=== PATIENT | male | born 1950 | race Caucasian/White ===

== ENCOUNTER 2019-07-17 06:04 | Inpatient (IN) | payer MEDICARE ==
[2019-07-17] MEDS ORDERED: DILTIAZEM DRIP BOLUS FROM BAG 1 MG SOLN IV ONE (06:13)
[2019-07-17] MEDS ORDERED: DILTIAZEM 125 MG in SODIUM CHLORIDE 0.9% 100 ML IV SCH (06:15)
[2019-07-17 06:31] LABS: Basophils % (A) 0 %; Eosinophils # (A) 0.2 k/uL (0-0.7); Eosinophils % (A) 2 %; HCT 37.7 % (39.0-53.0); HGB 12.5 gm/dL (13.0-17.5); Lymphocytes # (A) 1.1 k/uL (1.0-4.8); Lymphocytes % (A) 12 %; MCHC 33.2 g/dL (31.0-37.0); MCV 90.2 fL (80.0-100.0); Mean Platelet Volume 8.5; Monocytes # (A) 0.7 k/uL (0-1.0); Monocytes % (A) 8 %; Neutrophils # (A) 6.8 k/uL (1.3-7.7); Neutrophils % (A) 76 %; Platelet Count 276 k/uL (150-450); RBC 4.18 m/uL (4.30-5.90); RDW 13.4 % (11.5-15.5)
--- NOTE | 2019-07-17 06:32 | ED ---
Chest Pain HPI - General Source: patient, EMS, RN notes reviewed Mode of arrival: EMS Limitations: no limitations <Mian Lainez - Last Filed: 07/17/19 07:21> <Dain Stewart - Last Filed: 07/17/19 07:58> - General Chief Complaint: Chest Pain Stated Complaint: Chest Pain Time Seen by Provider: 07/17/19 06:07 - History of Present Illness Initial Comments: This is a 68-year-old male presents emergency Department with chief complaint of chest pain. Patient states it started late last night. Patient states that radha n has subsided some. He has no complaints of shortness of breath or palpitations. Patient does admit that he was recently admitted at [facility] for NSTEMI states that he has been echocardiogram. Patient's had prior CABG approximately 8 years ago. Patient recently switched from warfarin to Eliquis for his known A. fib. Patient denies any current abdominal pain including nausea, vomiting, diarrhea constipation. Patient has mild leg swelling which is normal for him. Patient denies being a smoker. Patient does have history of diabetes and hypertension. (Mian Lainez) - Related Data Allergies Allergy/AdvReac Type Severity Reaction Status Date / Time No Known Allergies Allergy Verified 07/17/19 06:13 Review of Systems ROS Other: All systems not noted in ROS Statement are negative. <Mian Lainez - Last Filed: 07/17/19 07:21> ROS Other: All systems not noted in ROS Statement are negative. <Dain Stewart - Last Filed: 07/17/19 07:58> ROS Statement: Those systems with pertinent positive or pertinent negative responses have been documented in the HPI. EKG Findings - EKG Comments: EKG Findings:: EKG performed at 6:08 A. fib with RVR, rate of 125 QRS 106 QT/QTC 332/479 - EKG Results: EKG: interpreted by ERMD <Mian Lainez - Last Filed: 07/17/19 07:21> Past Medical History Past Medical History: Atrial Fibrillation, Diabetes Mellitus, Hypertension, Myocardial Infarction ([place]) History of Any Multi-Drug Resistant Organisms: None Reported Past Surgical History: Coronary Bypass/CABG Past Psychological History: No Psychological Hx Reported Smoking Status: Never smoker Past Alcohol Use History: Occasional Past Drug Use History: None Reported <Mian Lainez - Last Filed: 07/17/19 07:21> General Exam General appearance: alert, in no apparent distress Head exam: Present: atraumatic, normocephalic, normal inspection Eye exam: Present: normal appearance, PERRL, EOMI. Absent: scleral icterus, conjunctival injection, periorbital swelling ENT exam: Present: normal exam, normal oropharynx, mucous membranes moist Neck exam: Present: normal inspection, full ROM. Absent: tenderness, meningi smus, lymphadenopathy Respiratory exam: Present: normal lung sounds bilaterally, other (Sternal scar noted). Absent: respiratory distress, wheezes, rales, rhonchi, stridor Cardiovascular Exam: Present: tachycardia, irregular rhythm, normal heart sounds. Absent: systolic murmur, diastolic murmur, rubs, gallop, clicks GI/Abdominal exam: Present: soft, normal bowel sounds. Absent: distended, tenderness, guarding, rebound, rigid Extremities exam: Present: pedal edema (Minimal), other (Lower extremity pulses equal bilaterally) Neurological exam: Present: alert, oriented X3, CN II-XII intact Skin exam: Present: warm, dry, intact, normal color. Absent: rash <Mian Lainez - Last Filed: 07/17/19 07:21> Course <Dain Stewart - Last Filed: 07/17/19 07:58> Vital Signs 07/17/19 07/17/19 07/17/19 06:06 06:30 07:41 Temperature 97.6 F Pulse Rate 125 H 110 H 106 H Respiratory 18 18 18 Rate Blood Pressure 147/89 118/94 131/86 O2 Sat by Pulse 97 96 95 Oximetry - Reevaluation(s) Reevaluation #1: 07/17/19 07:58 Patient reevaluated and reexamined by myself, Dr. Stewart. Patient resting co mfortably in bed. No chest discomfort at this time. Heart rate 117. Patient is on Cardizem and Eliquis. I do agree with PA findings. This includes diagnostic interpretation and treatment plan. Case also discussed with Dr. Alston, who will admit his patient. Patient is updated. (Dain Stewart) Chest Pain MDM <Mian Lainez - Last Filed: 07/17/19 07:21> - [facility] Patient's EKG did reveal evidence of A. fib with RVR. Patient's troponin is elevated at 0.2. Patient currently is on Eliquis will be continued on Eliquis. Patient was started on Cardizem for his A. fib. Heart rate is improving. Patient will be admitted to cardiology evaluation. (Mian Lainez) Critical Care Time Critical Care Time: Yes Total Critical Care Time: 35 <Mian Lainez - Last Filed: 07/17/19 07:21> Critical Care Time: Total of 35 minutes of critical care time use initially evaluated patient, reviewed past history and labs and x-ray. EKG showed evidence of A. fib RVR, no ST elevation troponins elevated. Patient will be continued on Eliquis. Patient found to be in A. fib RVR was started on Cardizem. Patient will be admitted for cardiology evaluation. (Mian Lainez) Disposition <Mian Lainez - Last Filed: 07/17/19 07:21> <Dain Stewart - Last Filed: 07/17/19 07:58> Clinical Impression: Chest pain, Atrial fibrillation with RVR, NSTEMI (non-ST elevated myocardial infarction) Disposition: ADMITTED IP TO THIS HOSP Condition: Fair Referrals: Reji Alston MD [Primary Care Provider] - 1-2 days
[2019-07-17 06:36] LABS: INR 1.5 (<1.2); Partial Thromboplastin Time 27.8 sec (22.0-30.0); Prothrombin Time 14.4 sec (9.0-12.0)
[2019-07-17 06:37] LABS: Albumin 3.6 g/dL (3.5-5.0); Calcium 8.5 mg/dL (8.4-10.2); Magnesium 1.4 mg/dL (1.6-2.3); Potassium 3.8 mmol/L (3.5-5.1); Total Bilirubin 1.9 mg/dL (0.2-1.3); Total Protein 6.6 g/dL (6.3-8.2)
--- NOTE | 2019-07-17 06:39 | XR ---
EXAMINATION TYPE: XR chest 2V DATE OF EXAM: 07/17/2019 COMPARISON: Chest x-ray September 10, 2012. HISTORY: Chest pain. TECHNIQUE: Frontal and lateral views of the chest are obtained. FINDINGS: Overlying sternal wires. There is chronic parenchymal change with new small left pleural ef fusion and suspected mild interstitial edema. Right lung is clear. There is cardiomegaly with atheros clerotic thoracic aorta. Prominent multilevel spurring of the spine is redemonstrated. IMPRESSION: Cardiomegaly with new small left pleural effusion and mild predominantly left-sided inte rstitial edema. Correlate for CHF exacerbation.
[2019-07-17] MEDS ORDERED: NITROGLYCERIN SL TABS 0.4 MG TAB SUBLINGUAL PRN (07:20)
[2019-07-17] MEDS ORDERED: DILTIAZEM ORAL 60 MG TAB PO SCH (09:30)
--- NOTE | 2019-07-17 09:40 | P.CRDCN ---
History of Present Illness Consult date: 07/17/19 Requesting physician: Reji Alston Consult reason: chest pain, atrial fibrillation Chief complaint: Chest pain History of present illness: This is 68-year-old gentleman who follows regularly with Dr. Sloan in the office. He has a known history of hypertension, diabetes, hyperlipidemia, persistent atrial fibrillation, coronary artery disease with prior 5 vessel bypass surgery in 2018. He presents to the hospital on this occasion with symptoms of a midsternal chest burning, patient states that the symptoms occur mostly when he is lying flat in bed or lying on his left side and seemed to subside when he lies on his right side or sits forward. The patient does state that he had some mild associated shortness of breath with this. According to the patient, he was at [facility], just discharged home on Tuesday, he presented to the hospital there with similar symptoms according to him. He also states that he had a stress test performed with Dr. Sloan at the office approximately a month ago. The patient used to take Coumadin at home, he was initiated recently on Eliquis, during his admission to [facility], according to the patient. Chest x-ray on presentation here showed cardiomegaly with new small left pleural effusions and mild predominantly left-sided interstitial edema. Correlate for CHF exacerbation. His EKG on presentation here showed atrial fibrillation with rapid ventricular response. Blood pressure 144/90 with a heart rate of 106, 95% on room air, he is afebrile. White blood cell count 9.0, hemoglobin 12.5, platelet count 276. Sodium 134, potassium 3.8, BUN 21, creatinine 1.0, magnesium 1.4, troponin 0.228, BNP level 928. Patient is currently on an IV Cardizem drip at 10 mg per hour. His home medications included Zocor 20 mg daily,Trulicity 1.5 mg subcu weekly, Glucophage, ramipril 10 mg twice a day, metoprolol 150 daily, Lasix 20 mg daily, Norvasc 10 mg daily, Cardizem 60 mg by mouth every 8 hourly, Eliquis 5 mg twice a day, patient does state that he was discharged on both Norvasc and Cardizem. We will resume his Eliquis this morning along with by mouth Cardizem, Lasix, metoprolol, and ramipril, we'll decrease her ramipril to 10 mg daily, resume statin. According to the office note, patient's most recent echo performed in October 2018 showed an ejection fraction of 40%, we will check to see when the patient most recently had a stress test performed as well. We will also obtain the records from [facility]. Past Medical History Past Medical History: Atrial Fibrillation, Diabetes Mellitus, Hypertension, Myocardial Infarction ([place]) Last Myocardial Infarction Date:: 2010 History of Any Multi-Drug Resistant Organisms: None Reported Past Surgical History: Coronary Bypass/CABG Additional Past Surgical History / Comment(s): CABG in 2010 Past Psychological History: No Psychological Hx Reported Smoking Status: Never smoker Past Alcohol Use History: Occasional Past Drug Use History: None Reported Medications and Allergies Home Medications Medication Instructions Recorded Confirmed Type Apixaban [Eliquis] 5 mg PO BID 07/17/19 07/17/19 History Diltiazem HCl 60 mg PO Q8H 07/17/19 07/17/19 History Dulaglutide [Trulicity] 1.5 mg SQ MO 07/17/19 07/17/19 History Furosemide [Lasix] 20 mg PO DAILY 07/17/19 07/17/19 History Metoprolol Succinate [Toprol XL] 150 mg PO DAILY 07/17/19 07/17/19 History Ramipril 10 mg PO BID 07/17/19 07/17/19 History Simvastatin [Zocor] 20 mg PO HS 07/17/19 07/17/19 History amLODIPine [Norvasc] 10 mg PO DAILY 07/17/19 07/17/19 History metFORMIN HCL [Glucophage] 1,000 mg PO BID 07/17/19 07/17/19 History Allergies Allergy/AdvReac Type Severity Reaction Status Date / Time No Known Allergies Allergy Verified 07/17/19 06:13 Physical Exam Vitals: Vital Signs Temp Pulse Pulse Resp BP BP Pulse Ox 07/17/19 09:06 97.7 F 96 18 144/95 95 07/17/19 08:00 97.6 F 97 18 131/86 93 L 07/17/19 07:41 106 H 18 131/86 95 07/17/19 07:00 103 H 18 118/94 95 07/17/19 06:30 110 H 18 118/94 96 07/17/19 06:06 97.6 F 125 H 18 147/89 97 Intake and Output 07/16/19 07/17/19 07/17/19 22:59 06:59 14:59 Other: Weight 109.769 kg 109.769 kg PHYSICAL EXAMINATION: GENERAL: 68-year-old gentleman in no acute distress at the time of my examination HEENT: Head is atraumatic, normocephalic. Pupils equal, round. Sclera anicteric. Conjunctiva are clear. Mucous membranes of the mouth are moist. Neck is supple. There is no elevated jugular venous pressure. No carotid bruit is heard. HEART EXAMINATION: Heart S1 and S2 irregularly irregular a systolic murmur is heard CHEST EXAMINATION: Lungs are clear with mild diminished air entry to the bases bilaterally. ABDOMEN: Soft, nontender. Bowel sounds are heard. No organomegaly noted. EXTREMITIES: 2+ peripheral pulses with trace evidence of peripheral edema and no calf tenderness noted. NEUROLOGIC patient is awake, alert and oriented 3 . . Results 07/17/19 06:17 07/17/19 06:17 Cardiac Enzymes 07/17/19 07/17/19 Range/Units 06:17 06:17 AST 25 (17-59) U/L Troponin I 0.228 H* (0.000-0.034) ng/mL CBC 07/17/19 Range/Units 06:17 WBC 9.0 (3.8-10.6) k/uL RBC 4.18 L (4.30-5.90) m/uL Hgb 12.5 L (13.0-17.5) gm/dL Hct 37.7 L (39.0-53.0) % Plt Count 276 (150-450) k/uL Comprehensive Metabolic Panel 07/17/19 Range/Units 06:17 Sodium 134 L (137-145) mmol/L Potassium 3.8 (3.5-5.1) mmol/L Chloride 104 (98-107) mmol/L Carbon Dioxide 20 L (22-30) mmol/L BUN 21 H (9-20) mg/dL Creatinine 1.06 (0.66-1.25) mg/dL Glucose 121 H (74-99) mg/dL Calcium 8.5 (8.4-10.2) mg/dL AST 25 (17-59) U/L ALT 20 (4-49) U/L Alkaline Phosphatase 39 (38-126) U/L Total Protein 6.6 (6.3-8.2) g/dL Albumin 3.6 (3.5-5.0) g/dL Current Medications Generic Name Dose Route Start Last Admin Trade Name Dionq PRN Reason Stop Dose Admin Aspirin 325 mg 07/18/19 09:00 Aspirin PO DAILY FR[place]LIN Diltiazem HCl 125 mg/ Sodium 125 mls @ 5 mls/hr 07/17/19 06:15 07/17/19 06:44 Chloride IV 5 mg/hr .Q24H FRANKLIN 5 mls/hr Administration 5 MG/HR Nitroglycerin 0.4 mg 07/17/19 07:20 Nitrostat SUBLINGUAL Q5M PRN Chest Pain Intake and Output 07/16/19 07/17/19 07/17/19 22:59 06:59 14:59 Other: Weight 109.769 kg 109.769 kg Patient Weight 07/18/19 06:59 Weight 109.769 kg 07/17/19 06:17 07/17/19 06:17 EKG Interpretations (text) EKG shows atrial fibrillation with a rapid ventricular response Assessment and Plan Plan: Assessment and plan #1 symptoms of midsternal chest burning, positional, somewhat atypical in nature. Initial troponin 0.228. EKG shows atrial fibrillation with rapid ventricular response #2 chronic persistent atrial fibrillation, currently on Cardizem drip at 10 mg per hour, patient is on Eliquis for anticoagulation #3 hypomagnesemia #4 mild congestive heart failure noted on chest x-ray, BNP 928, and chronic #5 known history of coronary artery disease with prior 5 vessel bypass in 2012 #6 ischemic cardiomyopathy with documented ejection fraction of 40% #7 hypertension #8 diabetes #9 hyperlipidemia Plan We will obtain records from [facility] on the patient's recent admission there. Patient does state he had an echocardiogram with Doppler study performed there. We will also check to see when the patient's most recent stress test was performed. We will put the patient on Eliquis 5 mg one tablet by mouth twice a day, Lipitor 40, by mouth Cardizem, metoprolol, and ramipril. If the heart rate attained adequate control once on oral medications, we'll discontinue the IV Cardizem drip. Obtain 2 subsequent troponins. Further recommendations to follow. DNP note has been reviewed, I agree with a documented findings and plan of care. Patient was seen and examined.
[2019-07-17] MEDS: FUROSEMIDE 20 MG TAB PO SCH (10:49)
[2019-07-17] MEDS: METOPROLOL SUCCINATE (ER) 50 MG TAB.ER.24H PO SCH (10:49)
[2019-07-17] MEDS: APIXABAN 5 MG TAB PO SCH ×2 (10:49→19:56)
[2019-07-17] MEDS: DILTIAZEM ORAL 60 MG TAB PO SCH ×3 (10:49→23:33)
[2019-07-17] MEDS: MAGNESIUM SULFATE-D5W PMX 1 GM in DEXTROSE/WATER 1 100ML.BAG IVPB SCH ×2 (10:50→15:21)
[2019-07-17 11:49] LABS: Glucose,Whole Blood 110 mg/dL (75-99)
--- NOTE | 2019-07-17 12:53 | P.HPIM ---
History of Present Illness H&P Date: 07/17/19 Chief Complaint: Uncontrolled afib The patient is here for readmission related to shortness of breath and atrial fibrillation. He also has an underlying history of dementia. His memory loss is getting worse. Otherwise, he was recently discharged from [facility] for atrial fibrillation. No significant edema but significant dyspnea was stated. He was admitted because of H fibrillation with RVR Review of Systems Constitutional: Denies chills, Denies fever Eyes: denies blurred vision, denies pain Ears, nose, mouth and throat: Denies headache, Denies sore throat Cardiovascular: Reports as per HPI, Reports rapid heart beat, Reports shortness of breath, Denies chest pain Respiratory: Denies cough Gastrointestinal: Denies abdominal pain, Denies diarrhea, Denies nausea, Denies vomiting Musculoskeletal: Denies myalgias Neurological: Reports memory loss Endocrine: Denies fatigue, Denies weight change Past Medical History Past Medical History: Atrial Fibrillation, Diabetes Mellitus, Hypertension, Myocardial Infarction ([place]) Last Myocardial Infarction Date:: 2010 History of Any Multi-Drug Resistant Organisms: None Reported Past Surgical History: Coronary Bypass/CABG Additional Past Surgical History / Comment(s): CABG in 2010 Past Psychological History: No Psychological Hx Reported Smoking Status: Never smoker Past Alcohol Use History: Occasional Past Drug Use History: None Reported Medications and Allergies Home Medications Medication Instructions Recorded Confirmed Type Apixaban [Eliquis] 5 mg PO BID 07/17/19 07/17/19 History Diltiazem HCl 60 mg PO Q8H 07/17/19 07/17/19 History Dulaglutide [Trulicity] 1.5 mg SQ MO 07/17/19 07/17/19 History Furosemide [Lasix] 20 mg PO DAILY 07/17/19 07/17/19 History Metoprolol Succinate [Toprol XL] 150 mg PO DAILY 07/17/19 07/17/19 History Ramipril 10 mg PO BID 07/17/19 07/17/19 History Simvastatin [Zocor] 20 mg PO HS 07/17/19 07/17/19 History amLODIPine [Norvasc] 10 mg PO DAILY 07/17/19 07/17/19 History metFORMIN HCL [Glucophage] 1,000 mg PO BID 07/17/19 07/17/19 History Allergies Allergy/AdvReac Type Severity Reaction Status Date / Time No Known Allergies Allergy Verified 07/17/19 06:13 Physical Exam Vitals: Vital Signs Temp Pulse Pulse Resp BP BP Pulse Ox 07/17/19 12:00 97.8 F 105 H 18 141/92 95 07/17/19 09:06 97.7 F 96 18 144/95 95 07/17/19 08:00 97.6 F 97 18 131/86 93 L 07/17/19 07:41 106 H 18 131/86 95 07/17/19 07:00 103 H 18 118/94 95 07/17/19 06:30 110 H 18 118/94 96 07/17/19 06:06 97.6 F 125 H 18 147/89 97 Intake and Output 07/16/19 07/17/19 07/17/19 22:59 06:59 14:59 Intake Total 120 Balance 120 Intake: Oral 120 Other: Weight 109.769 kg 109.769 kg - Constitutional General appearance: no acute distress - EENT Eyes: EOMI - Neck Neck: no lymphadenopathy - Respiratory Respiratory: bilateral: CTA - Cardiovascular Rhythm: irregularly irregular Heart sounds: normal: S1, S2 - Gastrointestinal General gastrointestinal: no soft - Neurologic Neurologic: CNII-XII intact, focal deficits Results CBC & Chem 7: 07/17/19 06:17 07/17/19 06:17 Labs: Abnormal Lab Results - Last 24 Hours (Table) 07/17/19 07/17/19 07/17/19 Range/Units 06:17 06:17 06:17 RBC 4.18 L (4.30-5.90) m/uL Hgb 12.5 L (13.0-17.5) gm/dL Hct 37.7 L (39.0-53.0) % PT 14.4 H (9.0-12.0) sec INR 1.5 H (<1.2) Sodium 134 L (137-145) mmol/L Carbon Dioxide 20 L (22-30) mmol/L BUN 21 H (9-20) mg/dL Glucose 121 H (74-99) mg/dL POC Glucose (mg/dL) (75-99) mg/dL Magnesium 1.4 L (1.6-2.3) mg/dL Total Bilirubin 1.9 H (0.2-1.3) mg/dL Troponin I (0.000-0.034) ng/mL Lipase 445 H (23-300) U/L 07/17/19 07/17/19 07/17/19 Range/Units 06:17 11:01 11:46 RBC (4.30-5.90) m/uL Hgb (13.0-17.5) gm/dL Hct (39.0-53.0) % PT (9.0-12.0) sec INR (<1.2) Sodium (137-145) mmol/L Carbon Dioxide (22-30) mmol/L BUN (9-20) mg/dL Glucose (74-99) mg/dL POC Glucose (mg/dL) 110 H (75-99) mg/dL Magnesium (1.6-2.3) mg/dL Total Bilirubin (0.2-1.3) mg/dL Troponin I 0.228 H* 0.216 H* (0.000-0.034) ng/mL Lipase (23-300) U/L Thrombosis Risk Factor Assmnt - Choose All That Apply Any of the Below Risk Factors Present?: Yes Each Factor Represents 1 point: Acute PR, Obesity (BMI >25), Swollen legs (current) Other Risk Factors: Yes Each Risk Factor Represents 2 Points: Age 61-74 years Other congenital or acquired thrombophilia - If yes, enter type in comment: No Thrombosis Risk Factor Assessment Total Risk Factor Score: 5 Thrombosis Risk Factor Assessment Level: High Risk Assessment and Plan (1) Dementia Current Visit: Yes Status: Acute Code(s): F03.90 - UNSPECIFIED DEMENTIA WITHOUT BEHAVIORAL DISTURBANCE SNOMED Code(s): 80695342 (2) Diabetes Current Visit: Yes Status: Acute Code(s): E11.9 - TYPE 2 DIABETES MELLITUS WITHOUT COMPLICATIONS SNOMED Code(s): 23839133 (3) Atrial fibrillation with RVR Current Visit: Yes Status: Acute Code(s): I48.91 - UNSPECIFIED ATRIAL FIBRILLATION SNOMED Code(s): 993829524813925 (4) Chest pain Current Visit: Yes Status: Acute Code(s): R07.9 - CHEST PAIN, UNSPECIFIED SNOMED Code(s): 46522700 Plan: We'll go ahead and start Aricept. Check CBC and CMP in a.m. Appreciate cardiology input. Question need for neurology if he worsens. Time with Patient: Greater than 30
--- NOTE | 2019-07-17 12:54 | ECHOF ---
Referral Reason:afib MEASUREMENTS -------- HEIGHT: 182.9 cm WEIGHT: 109.8 kg BP: 144/95 RVIDd: 3.5 cm (< 3.3) IVSd: 1.4 cm (0.6 - 1.1) LVIDd: 5.0 cm (3.9 - 5.3) LVPWd: 1.9 cm (0.6 - 1.1) IVSs: 1.5 cm LVIDs: 5.1 cm LVPWs: 1.5 cm LA Diam: 5.0 cm (2.7 - 3.8) LAESV Index (A-L): 51.43 ml/m Ao Diam: 3.9 cm (2.0 - 3.7) AV Cusp: 1.4 cm (1.5 - 2.6) LA Diam: 5.1 cm (2.7 - 3.8) MV EXCURSION: 19.913 mm (> 18.000) MV EF SLOPE: 65 mm/s (70 - 150) EPSS: 1.9 cm RAP: 5.00 mmHg RVSP: 28.89 mmHg FINDINGS -------- Atrial fibrillation. This was a techncally difficult study with suboptimal views, , Lumason utilized for enhancement of im ages. The left ventricular size is normal. There is borderline concentric left ventricular hypertrophy. There is severe global hypokinesis of LV . Overall left ventricular systolic function is severely impaired with, an EF between 20 - 25 %. The right ventricle is normal in size. The left atrium is moderately dilated. LA is moderately dilated 34-39 ml/m2 The right atrial size is normal. 5.0mg OF Lumason UTLIZED: 2 OR MORE WALL SEGMENTS NOT VISUALIZED. There is mild aortic valve sclerosis. There is no evidence of aortic regurgitation. Mild mitral annular calcification present. Mild mitral regurgitation is present. Mild tricuspid regurgitation present. Right ventricular systolic pressure is normal at < 35 mmHg. There is no evidence of pulmonary hypertension. There is no pulmonic regurgitation present. The aortic root size is normal. There is no pericardial effusion. CONCLUSIONS -------- 1. Atrial fibrillation. 2. This was a techncally difficult study with suboptimal views, , Lumason utilized for enhancement of images. 3. The left ventricular size is normal. 4. There is borderline concentric left ventricular hypertrophy. 5. There is severe global hypokinesis of LV . 6. Overall left ventricular systolic function is severely impaired with, an EF between 20 - 25 %. 7. The right ventricle is normal in size. 8. The left atrium is moderately dilated. 9. LA is moderately dilated 34-39 ml/m2 10. The right atrial size is normal. 11. 5.0mg OF Lumason UTLIZED: 2 OR MORE WALL SEGMENTS NOT VISUALIZED. 12. There is mild aortic valve sclerosis. 13. Mild mitral annular calcification present. 14. Mild mitral regurgitation is present. 15. Mild tricuspid regurgitation present. 16. Right ventricular systolic pressure is normal at < 35 mmHg. 17. There is no evidence of pulmonary hypertension. 18. There is no pulmonic regurgitation present. 19. The aortic root size is normal. 20. There is no pericardial effusion. [employer]SEMBLER: Kia Medina RDCS
[2019-07-17 16:17] LABS: Glucose,Whole Blood 130 mg/dL (75-99)
[2019-07-17 20:19] LABS: Glucose,Whole Blood 127 mg/dL (75-99)
[2019-07-17] MEDS ORDERED: DONEPEZIL 10 MG TAB PO SCH (21:00)
[2019-07-17] MEDS ORDERED: ATORVASTATIN 40 MG TAB PO SCH (21:00)
[2019-07-18 04:31] VITALS: RESP 16
[2019-07-18 06:03] LABS: Glucose,Whole Blood 124 mg/dL (75-99)
[2019-07-18 06:32] LABS: HCT 36.3 % (39.0-53.0); HGB 11.8 gm/dL (13.0-17.5); MCH 29.4 pg (25.0-35.0); MCHC 32.6 g/dL (31.0-37.0); MCV 90.1 fL (80.0-100.0); Mean Platelet Volume 8.8; Platelet Count 224 k/uL (150-450); RBC 4.03 m/uL (4.30-5.90); RDW 13.4 % (11.5-15.5); WBC 9.9 k/uL (3.8-10.6)
[2019-07-18 06:39] LABS: ALT 18 U/L (4-49); AST 22 U/L (17-59); African American GFR (CKD) >90 (>60 ml/min/1.73 sqM); Albumin 3.5 g/dL (3.5-5.0); Alkaline Phosphatase 42 U/L (38-126); Anion Gap 11 mmol/L; Blood Urea Nitrogen 14 mg/dL (9-20); Calcium 9.1 mg/dL (8.4-10.2); Carbon Dioxide 22 mmol/L (22-30); Chloride 101 mmol/L (98-107); Cholesterol 89 mg/dL (<200); Glucose 115 mg/dL (74-99); HDL Cholesterol 35 mg/dL (40-60); LDL Cholesterol,Calculated 40 mg/dL (0-99); Non-African American GFR(CKD) >90 (>60 ml/min/1.73 sqM); Potassium 3.9 mmol/L (3.5-5.1); Sodium 134 mmol/L (137-145); Total Bilirubin 2.4 mg/dL (0.2-1.3); Total Protein 6.5 g/dL (6.3-8.2); Triglycerides 69 mg/dL (<150)
--- NOTE | 2019-07-18 08:00 | P.PN ---
Subjective Progress Note Date: 07/18/19 Principal diagnosis: This is a continue present 68-year-old white male who has H fibrillation but his rate is not being controlled. We are slowly weaning off his Cardizem drip. She had cardiology input. Unfortunately, I suspect he has significant dementia. The patient was now placed on Aricept. Once drip is weaned, we will anticipate discharge in the next 24 hours. Patient states no significant chest pain or shortness of breath. As per chief complaint Objective - Vital Signs Vital signs: Vital Signs Temp 97.7 F 07/18/19 04:15 Pulse 88 07/18/19 04:15 Resp 16 07/18/19 04:15 BP 138/86 07/18/19 04:15 Pulse Ox 95 07/18/19 04:15 Intake & Output 07/17/19 07/18/19 07/18/19 18:59 06:59 18:59 Intake Total 360 Output Total 400 Balance -40 Weight 109.769 kg 110.2 kg Intake: Oral 360 Output: Urine 400 Other: Voiding Method Toilet # Voids 1 - Constitutional General appearance: Present: average body habitus - EENT Eyes: Absent: abnormal pupil - Cardiovascular Rhythm: irregularly irregular Heart sounds: normal: S1, S2 Abnormal Heart Sounds: Absent: S3 Gallop - Gastrointestinal General gastrointestinal: Present: soft. Absent: tenderness - Integumentary Integumentary: Present: normal. Absent: rash - Neurologic Neurologic Comment(s): Significant memory issues - Labs CBC & Chem 7: 07/18/19 05:34 07/18/19 05:34 Labs: Abnormal Lab Results - Last 24 Hours (Table) 07/17/19 07/17/19 07/17/19 Range/Units 06:17 11:01 11:46 RBC (4.30-5.90) m/uL Hgb (13.0-17.5) gm/dL Hct (39.0-53.0) % PT 14.4 H (9.0-12.0) sec INR 1.5 H (<1.2) Sodium (137-145) mmol/L Glucose (74-99) mg/dL POC Glucose (mg/dL) 110 H (75-99) mg/dL Total Bilirubin (0.2-1.3) mg/dL Troponin I 0.216 H* (0.000-0.034) ng/mL HDL Cholesterol (40-60) mg/dL 07/17/19 07/17/19 07/17/19 Range/Units 16:15 18:25 20:18 RBC (4.30-5.90) m/uL Hgb (13.0-17.5) gm/dL Hct (39.0-53.0) % PT (9.0-12.0) sec INR (<1.2) Sodium (137-145) mmol/L Glucose (74-99) mg/dL POC Glucose (mg/dL) 130 H 127 H (75-99) mg/dL Total Bilirubin (0.2-1.3) mg/dL Troponin I 0.177 H* (0.000-0.034) ng/mL HDL Cholesterol (40-60) mg/dL 07/18/19 07/18/19 07/18/19 Range/Units 05:34 05:34 06:02 RBC 4.03 L (4.30-5.90) m/uL Hgb 11.8 L (13.0-17.5) gm/dL Hct 36.3 L (39.0-53.0) % PT (9.0-12.0) sec INR (<1.2) Sodium 134 L (137-145) mmol/L Glucose 115 H (74-99) mg/dL POC Glucose (mg/dL) 124 H (75-99) mg/dL Total Bilirubin 2.4 H (0.2-1.3) mg/dL Troponin I (0.000-0.034) ng/mL HDL Cholesterol 35 L (40-60) mg/dL Assessment and Plan (1) Dementia Current Visit: Yes Status: Acute Code(s): F03.90 - UNSPECIFIED DEMENTIA WITHOUT BEHAVIORAL DISTURBANCE SNOMED Code(s): 57095404 (2) Diabetes Current Visit: Yes Status: Acute Code(s): E11.9 - TYPE 2 DIABETES MELLITUS WITHOUT COMPLICATIONS SNOMED Code(s): 03420928 (3) Atrial fibrillation with RVR Current Visit: Yes Status: Acute Code(s): I48.91 - UNSPECIFIED ATRIAL FIBRILLATION SNOMED Code(s): 444206226221902 (4) Chest pain Current Visit: Yes Status: Acute Code(s): R07.9 - CHEST PAIN, UNSPECIFIED SNOMED Code(s): 79392256 Plan: We'll go ahead and start Aricept. Check CBC and CMP in a.m. Appreciate cardiology input. Question need for neurology if he worsens. Otherwise, anticipate discharge in a.m.
[2019-07-18 08:24] VITALS: TEMP 97.9
[2019-07-18] MEDS ORDERED: LISINOPRIL 20 MG TAB PO SCH (09:00)
[2019-07-18] MEDS ORDERED: ASPIRIN 325 MG TAB PO SCH (09:00)
[2019-07-18] MEDS ORDERED: ASPIRIN 81 MG PO SCH (09:00)
[2019-07-18] MEDS: APIXABAN 5 MG TAB PO SCH (09:13)
[2019-07-18] MEDS: DILTIAZEM ORAL 60 MG TAB PO SCH ×2 (09:13→15:45)
[2019-07-18] MEDS: METOPROLOL SUCCINATE (ER) 50 MG TAB.ER.24H PO SCH (09:13)
[2019-07-18] MEDS: FUROSEMIDE 20 MG TAB PO SCH (09:13)
[2019-07-18] MEDS ORDERED: MAGNESIUM SULFATE-D5W PMX 1 GM in DEXTROSE/WATER 1 100ML.BAG IVPB SCH (09:30)
[2019-07-18] MEDS: MAGNESIUM SULFATE-D5W PMX 1 GM in DEXTROSE/WATER 1 100ML.BAG IVPB SCH ×4 (10:14→14:39)
[2019-07-18 11:35] LABS: Glucose,Whole Blood 123 mg/dL (75-99)
[2019-07-18 11:47] VITALS: BP 117/79; PULSE 90
--- NOTE | 2019-07-18 12:20 | P.PN ---
Subjective Progress Note Date: 07/18/19 This is 68-year-old gentleman who follows regularly with Dr. Sloan in the office. He has a known history of hypertension, diabetes, hyperlipidemia, persistent atrial fibrillation, coronary artery disease with prior 5 vessel bypass surgery in 2018. He presents to the hospital on this occasion with symptoms of a midsternal chest burning, patient states that the symptoms occur mostly when he is lying flat in bed or lying on his left side and seemed to subside when he lies on his right side or sits forward. The patient does state that he had some mild associated shortness of breath with this. According to the patient, he was at [facility], just discharged home on Tuesday, he presented to the hospital there with similar symptoms according to him. He also states that he had a stress test performed with Dr. Sloan at the office approximately a month ago. The patient used to take Coumadin at home, he was initiated recently on Eliquis, during his admission to [facility], according to the patient. Chest x-ray on presentation here showed cardiomegaly with new small left pleural effusions and mild predominantly left-sided interstitial edema. Correlate for CHF exacerbation. His EKG on presentation here showed atrial fibrillation with rapid ventricular response. Blood pressure 144/90 with a heart rate of 106, 95% on room air, he is afebrile. White blood cell count 9.0, hemoglobin 12.5, platelet count 276. Sodium 134, potassium 3.8, BUN 21, creatinine 1.0, magnesium 1.4, troponin 0.228, BNP level 928. Patient is currently on an IV Cardizem drip at 10 mg per hour. His home medications included Zocor 20 mg daily,Trulicity 1.5 mg subcu weekly, Glucophage, ramipril 10 mg twice a day, metoprolol 150 daily, Lasix 20 mg daily, Norvasc 10 mg daily, Cardizem 60 mg by mouth every 8 hourly, Eliquis 5 mg twice a day, patient does state that he was discharged on both Norvasc and Cardizem. We will resume his Eliquis this morning along with by mouth Cardizem, Lasix, metoprolol, and ramipril, we'll decrease her ramipril to 10 mg daily, resume statin. According to the office note, patient's most recent echo performed in October 2018 showed an ejection fraction of 40%, we will check to see when the patient most recently had a stress test performed as well. We will also obtain the records from [facility]. 07/18/2019 Patient seen and examined this morning, heart rate in the 90s, with activity it does go up into the 1 teens, magnesium level today is 1.5. Blood pressure 118/80. We will continue with anticoagulation in the form of Eliquis., Continue beta nolan and Cardizem by mouth. From our perspective, the patient may be able to be discharged home, to follow-up in the office post discharge. Objective - Vital Signs Vital signs: Vital Signs Temp 97.9 F 07/18/19 07:45 Pulse 90 07/18/19 11:46 Resp 16 07/18/19 11:46 BP 117/79 07/18/19 11:46 Pulse Ox 94 L 07/18/19 11:46 Intake & Output 07/17/19 07/18/19 07/18/19 18:59 06:59 18:59 Intake Total 360 360 Output Total 400 Balance -40 360 Weight 109.769 kg 110.2 kg Intake: Oral 360 360 Output: Urine 400 Other: Voiding Method Toilet # Voids 1 - Exam PHYSICAL EXAMINATION: GENERAL: 68-year-old gentleman in no acute distress at the time of my examination HEENT: Head is atraumatic, normocephalic. Pupils equal, round. Sclera anicteric. Conjunctiva are clear. Mucous membranes of the mouth are moist. Neck is supple. There is no elevated jugular venous pressure. No carotid bruit is heard. HEART EXAMINATION: Heart S1 and S2 irregularly irregular a systolic murmur is heard CHEST EXAMINATION: Lungs are clear with mild diminished air entry to the bases bilaterally. ABDOMEN: Soft, nontender. Bowel sounds are heard. No organomegaly noted. EXTREMITIES: 2+ peripheral pulses with trace evidence of peripheral edema and no calf tenderness noted. NEUROLOGIC patient is awake, alert and oriented 3 . - Labs CBC & Chem 7: 07/18/19 05:34 07/18/19 05:34 Labs: Abnormal Lab Results - Last 24 Hours (Table) 07/17/19 07/17/19 07/17/19 Range/Units 11:01 16:15 18:25 RBC (4.30-5.90) m/uL Hgb (13.0-17.5) gm/dL Hct (39.0-53.0) % Sodium (137-145) mmol/L Glucose (74-99) mg/dL POC Glucose (mg/dL) 130 H (75-99) mg/dL Magnesium (1.6-2.3) mg/dL Total Bilirubin (0.2-1.3) mg/dL Troponin I 0.216 H* 0.177 H* (0.000-0.034) ng/mL HDL Cholesterol (40-60) mg/dL 07/17/19 07/18/19 07/18/19 Range/Units 20:18 05:34 05:34 RBC 4.03 L (4.30-5.90) m/uL Hgb 11.8 L (13.0-17.5) gm/dL Hct 36.3 L (39.0-53.0) % Sodium 134 L (137-145) mmol/L Glucose 115 H (74-99) mg/dL POC Glucose (mg/dL) 127 H (75-99) mg/dL Magnesium (1.6-2.3) mg/dL Total Bilirubin 2.4 H (0.2-1.3) mg/dL Troponin I (0.000-0.034) ng/mL HDL Cholesterol 35 L (40-60) mg/dL 07/18/19 07/18/19 07/18/19 Range/Units 05:34 06:02 11:33 RBC (4.30-5.90) m/uL Hgb (13.0-17.5) gm/dL Hct (39.0-53.0) % Sodium (137-145) mmol/L Glucose (74-99) mg/dL POC Glucose (mg/dL) 124 H 123 H (75-99) mg/dL Magnesium 1.5 L (1.6-2.3) mg/dL Total Bilirubin (0.2-1.3) mg/dL Troponin I (0.000-0.034) ng/mL HDL Cholesterol (40-60) mg/dL Assessment and Plan Plan: Assessment and plan #1 symptoms of midsternal chest burning, positional, somewhat atypical in nature. Initial troponin 0.228. EKG shows atrial fibrillation with rapid ventricular response #2 chronic persistent atrial fibrillation, currently on Cardizem drip at 10 mg per hour, patient is on Eliquis for anticoagulation #3 hypomagnesemia #4 mild congestive heart failure noted on chest x-ray, BNP 928, and chronic #5 known history of coronary artery disease with prior 5 vessel bypass in 2012 #6 ischemic cardiomyopathy with documented ejection fraction of 40% #7 hypertension #8 diabetes #9 hyperlipidemia Plan From cardiology's perspective, we will continue anticoagulation, continue current dose of beta nolan and calcium channel nolan. From our perspective the patient may be able to be discharged home, we'll make a follow-up appointment in the office post discharge. DNP note has been reviewed, I agree with a documented findings and plan of care. Patient was seen and examined.
--- NOTE | 2019-07-18 15:10 | P.DS ---
Providers Date of admission: 07/17/19 07:20 Attending physician: Reji Alston Consults: 07/17/19 07:20 Consult Physician Urgent Consulting Provider: Bashir Carvalho Consult Reason/Comments: chest pain Do you want consulting provider notified?: Yes Primary care physician: Reji Alston - Discharge Diagnosis(es) (1) Dementia Current Visit: Yes Status: Acute (2) Diabetes Current Visit: Yes Status: Acute (3) Atrial fibrillation with RVR Current Visit: Yes Status: Acute (4) Chest pain Current Visit: Yes Status: Acute Hospital Course: Patient was admitted with atrial fib with RVR. Stabilized with Cardizem drip and cardiology was consulted. Patient is struggling with dementia as well. Spoke at length with the family about overall prognosis Patient Condition at Discharge: Fair Plan - Discharge Summary Discharge Rx Participant: Yes New Discharge Prescriptions: New Donepezil [Aricept] 10 mg PO HS #30 tab Aspirin 81 mg PO DAILY chew Atorvastatin [Lipitor] 40 mg PO HS #30 tab Nitroglycerin Sl Tabs [Nitrostat] 0.4 mg SUBLINGUAL Q5M PRN #50 tab PRN Reason: Chest Pain Continue Simvastatin [Zocor] 20 mg PO HS metFORMIN HCL [Glucophage] 1,000 mg PO BID Ramipril 10 mg PO BID Metoprolol Succinate [Toprol XL] 150 mg PO DAILY Furosemide [Lasix] 20 mg PO DAILY amLODIPine [Norvasc] 10 mg PO DAILY Diltiazem HCl 60 mg PO Q8H Apixaban [Eliquis] 5 mg PO BID Dulaglutide [Trulicity] 1.5 mg SQ MO Discharge Medication List Apixaban [Eliquis] 5 mg PO BID 07/17/19 [History] Diltiazem HCl 60 mg PO Q8H 07/17/19 [History] Dulaglutide [Trulicity] 1.5 mg SQ MO 07/17/19 [History] Furosemide [Lasix] 20 mg PO DAILY 07/17/19 [History] Metoprolol Succinate [Toprol XL] 150 mg PO DAILY 07/17/19 [History] Ramipril 10 mg PO BID 07/17/19 [History] Simvastatin [Zocor] 20 mg PO HS 07/17/19 [History] amLODIPine [Norvasc] 10 mg PO DAILY 07/17/19 [History] metFORMIN HCL [Glucophage] 1,000 mg PO BID 07/17/19 [History] Aspirin 81 mg PO DAILY chew 07/18/19 [Rx] Atorvastatin [Lipitor] 40 mg PO HS #30 tab 07/18/19 [Rx] Donepezil [Aricept] 10 mg PO HS #30 tab 07/18/19 [Rx] Nitroglycerin Sl Tabs [Nitrostat] 0.4 mg SUBLINGUAL Q5M PRN #50 tab 07/18/19 [Rx] Follow up Appointment(s)/Referral(s): Reji Alston MD [Primary Care Provider] - 3 Days Discharge Disposition: HOME SELF-CARE
--- NOTE | 2019-07-27 06:31 | CDI ---
Documentation Clarification Form Date: 07/27/2019 06:20:10 AM From: Rachell Srivastava Phone: If you have a question about this query, please contact Beronica Beverly, Adoption Specialist at [phone] between 8am and 5pm. Admit Date: 07/17/2019 07:20:00 AM Patient Name: Cipriano Last Visit Number: [id number] Discharge Date: 07/18/2019 04:03:00 PM ATTENTION: The Clinical Documentation Specialists (CDI) and [facility] Coding Staff appreciate your assistance in clarifying documentation. Please respond to the clarification below the line at the bottom and electronically sign. The CDI & [facility] Coding staff will review the response and follow-up if needed. Please note: Queries are made part of the Legal Health Record. If you have any questions, please contact the author of this message via ITS. Dr. Reji Alston 07/16 07/17 Cardio PN - extremities 2+ peripheral pulses with trace evidence of peripheral edema no calf tenderness noted mild CHF noted on CXR BNP 928 chronic. Left ventricular function severely impared with EF 20-25. History/Risk Factors: Atrial fib, No significan edema but significant dyspnea Clinical Indicators: VS/Pulse OX: BNP: Echocardiogram Results: Chest X Ray:Cardiomegaly with new small pleural effusion and mild predominantly left sided interstitial edema. Correlate for CHF exacerbation Treatment: Lasix 20 mg. Lisinopril 40 mg In your professional opinion, can you please clarify the acuity and type of CHF if known? Systolic Heart Failure: Acute Chronic Acute on Chronic -This is the correct diagnosis at this time Diastolic Heart Failure: Acute Chronic Acute on Chronic Systolic & Diastolic Heart Failure: Acute Chronic Acute on Chronic Heart Failure Unable to Determine Other, please specify MTDD
--- NOTE | 2019-07-27 06:44 | CDI ---
Documentation Clarification Form Date: 07/27/2019 06:32:31 AM From: Rachell Srivastava Phone: Admit Date: 07/17/2019 07:20:00 AM Patient Name: Cpiriano Last Visit Number: [id number] Discharge Date: 07/18/2019 04:03:00 PM ATTENTION: The Clinical Documentation Specialists (CDI) and [facility] Coding Staff appreciate your assistance in clarifying documentation. Please respond to the clarification below the line at the bottom and electronically sign. The CDI & [facility] Coding staff will review the response and follow-up if needed. Please note: Queries are made part of the Legal Health Record. If you have any questions, please contact the author of this message via ITS. Dr. Reji Alston Myocardial infarction is documented in the ED impression. Please clarify if patient had a type II NM or was this ruled out. Patient History/Risk Factors: Clinical Indicators:EKG on presentation showed atrial fib with RVR, SOB, midsternal chest burning and pain which occur when he is lying flat Troponin:0.228 0.216 0.177 EKG Results:Atrial fib with RVR Treatment: IV cardizem drip then oral, Eliquis. Lipitor, Metoprolol, Serial troponins, telemetry, cardiac consult Consult: Cardiac dx of atrial fib with RVR For accurate documentation please clarify if patient had a TYPE II NM. Type II NM Type II NM ruled out-This is the correct diagnosis at this time. Unable to determine Other Condition, please specify MTDD
== END 2019-07-18 16:03 | disposition home or self-care (01) | DRG 308 ==
LOC: EC 06:04 → 3SCARD 07:20
PROVIDERS: ADMIT Family Medicine; ATTEND Family Medicine
DX: I48.19 Other persistent atrial fibrillation (principal); I50.23 Acute on chronic systolic (congestive) heart failure; Z79.01 Long term (current) use of anticoagulants; I11.0 Hypertensive heart disease with heart failure; F03.90 Unspecified dementia, unspecified severity, without behavioral disturbance, psychotic disturbance, mood disturbance, and anxiety; E83.42 Hypomagnesemia; E11.9 Type 2 diabetes mellitus without complications; E78.5 Hyperlipidemia, unspecified; I25.10 Atherosclerotic heart disease of native coronary artery without angina pectoris; I25.2 Old myocardial infarction; I25.5 Ischemic cardiomyopathy; Z79.84 Long term (current) use of oral hypoglycemic drugs; Z79.899 Other long term (current) drug therapy; Z95.1 Presence of aortocoronary bypass graft; E66.9 Obesity, unspecified; Z68.32 Body mass index [BMI] 32.0-32.9, adult; R07.89 Other chest pain
CPT/HCPCS: 36415; 71046; 80053; 80061; 83690; 83735; 83880; 84443; 84484; 85025; 85027; 85610; 85730; 93005; 93306; 96365; 96376; 99291

== ENCOUNTER → 2019-09-12 | Outpatient (CLI) | payer MEDICARE ==
--- NOTE | 2019-09-12 13:37 | CT ---
EXAMINATION TYPE: CT chest abdomen wo con DATE OF EXAM: 09/12/2019 COMPARISON: None HISTORY: Weight loss. Patient describes 30 pound weight loss in [address] DLP: 828.3 mGycm Automated exposure control for dose reduction was used. TECHNIQUE: Standard CT of the chest and abdomen was performed per department protocol without intrave nous contrast limiting evaluation of the solid viscera. Oral contrast was administered per department protocol. FINDINGS: There are moderate bilateral pleural effusions, right greater than left with associated compressive a telectasis. Scattered geographic groundglass opacities are also likely on the basis of fluid overload as there is an enlarged heart. Pleural calcifications are seen bilaterally along the lower lungs. Th ere are post CABG changes of the chest with severe coronary artery calcifications in the [place] arteries. The main pulmonary artery is enlarged measuring 3.8 cm suggesting pulmonary arterial hy pertension. The ascending thoracic aorta is upper limits of normal size measuring 4.0 cm. Minimal ret roareolar probable symmetric gynecomastia seen. Lack of intravenous contrast limits evaluation for me diastinal adenopathy. No gross pathologic-appearing mediastinal adenopathy is seen. Punctate benign-a ppearing calcification of the right thyroid lobe. Bridging anterior osteophytes are seen of the spine representing diffuse idiopathic skeletal hyperost osis. Moderate multilevel degenerative change of the spine is also seen. Radiopaque densities within the gallbladder representing cholelithiasis. The unenhanced liver is charlotte sly unremarkable in morphology. A very trace amount of abdominal ascites tracks on the lateral conal fascia bilaterally. Moderate to severe atherosclerosis of the abdominal aorta and its branches. Renal arterial calcifications are also seen. The unenhanced spleen, pancreas, and adrenal glands are unrem arkable. No greater than 1 cm short axis lymph node in the abdomen or pelvis given the limitation of lack of intravenous contrast. What appears to be the appendix is enlarged measuring 8 mm. This is only partially visualized however . The remainder the visualized bowel appears nondilated. IMPRESSION: 1. THERE IS DILATION OF WHAT APPEARS TO BE THE APPENDIX ALTHOUGH THIS IS ONLY PARTIALLY VISUALIZED ON THE CT CHEST AND ABDOMEN ONLY. CLINICAL EVALUATION FOR ACUTE APPENDICITIS IS RECOMMENDED. CT OF THE PELVIS COULD BE OBTAINED TO FURTHER EVALUATE THIS FINDING. 2. TRACE AMOUNT OF ABDOMINAL ASCITES. 3. FLUID OVERLOAD WITH MODERATE PLEURAL EFFUSIONS AND GROUNDGLASS OPACITIES, LIKELY SEQUELA OF DECOMP ENSATED CONGESTIVE HEART FAILURE. 4. CHOLELITHIASIS. 5. UPPER LIMITS NORMAL SIZE OF THE ASCENDING THORACIC AORTA AND ENLARGEMENT OF THE MAIN PULMONARY ART PALLAVI SUGGESTING UNDERLYING PULMONARY ARTERIAL HYPERTENSION. A Yellow level critical message alert has been initiated for Reji Alston MD via the [employer] Critical Results System on 09/12/2019 1:34 PM. This message alert has been sent to Reji Alston MD via the preferences provided by the clinician for the receipt of Radiology Critical Findings. Message ID [id number].
== END | disposition home or self-care (01) ==
LOC: RADCTMAIN 12:00
PROVIDERS: ATTEND Family Medicine
DX: J90 Pleural effusion, not elsewhere classified (principal); I28.8 Other diseases of pulmonary vessels; R91.8 Other nonspecific abnormal finding of lung field; K38.8 Other specified diseases of appendix; K80.20 Calculus of gallbladder without cholecystitis without obstruction
CPT/HCPCS: 71250; 74150

== ENCOUNTER → 2019-09-18 | Outpatient (CLI) | payer MEDICARE ==
--- NOTE | 2019-09-18 11:58 | CT ---
EXAMINATION TYPE: CT pelvis wo con DATE OF EXAM: 09/18/2019 COMPARISON: 09/12/2019 HISTORY: Abnormal CT. No new complaints at time of scan. CT DLP: 548 mGycm Automated exposure control for dose reduction was used. FINDINGS: The appendix is again dilated measuring up to 9 mm and does not contain oral contrast despi te oral contrast within the cecum. However no significant periappendiceal is seen. No surrounding abs cess or free air. Extensive atherosclerosis of the abdominal aorta and its branches. Cholelithiasis is seen. Renal elida ry atherosclerosis noted. No dilated large bowel or small bowel. Very trace amount of free fluid in t he pelvis seen along loops of small bowel on image 51. Moderate degenerative change of the spine. IMPRESSION: 1. Enlarged appendix without significant inflammatory fat stranding. Surgical consultation is recomme nded to evaluate for early acute appendicitis, appendiceal neoplasm or small appendiceal mucocele. 2. Very trace free fluid in the pelvis. 3. Cholelithiasis. A [place] level critical message alert has been initiated for Reji Alston MD via the [facility] Critical Results System on 09/18/2019 11:55 AM. This message alert has been sent to Reji Alston MD vi a the preferences provided by the clinician for the receipt of Radiology Critical Findings. Message I D [id number].
== END | disposition home or self-care (01) ==
LOC: RADCTMAIN 09:26
PROVIDERS: ATTEND Family Medicine
DX: K35.33 Acute appendicitis with perforation, localized peritonitis, and gangrene, with abscess (principal); K38.8 Other specified diseases of appendix; K80.20 Calculus of gallbladder without cholecystitis without obstruction; R93.89 Abnormal findings on diagnostic imaging of other specified body structures
CPT/HCPCS: 72192

== ENCOUNTER → 2019-09-25 | Outpatient (CLI) | payer MEDICARE | END | disposition home or self-care (01) | LOC: LABWHC1 09:36 | PROVIDERS: ATTEND Surgery | DX: Z11.59 Encounter for screening for other viral diseases (principal) ==

== ENCOUNTER 2019-09-26 06:41 | Day surgery (SDC) | payer MEDICARE ==
[2019-09-25 09:00] VITALS: BMI 29.1
[~2019-09-26 06:41] MED LIST: DEXAMETHASONE SOD PHOSPHATE 10 MG/ML 1 ML VIAL IV ONE; HEPARIN SODIUM,PORCINE 5,000 UNIT/ML 1 ML VIAL SQ ONE; HYDROmorphone 0.5 MG/0.5 ML SYRINGE IVP PRN; LACTATED RINGERS 1,000 ML IV SCH; LIDOCAINE 1% (10MG/ML) FOR IV START INTRADERMA PRN; MIDAZOLAM 2 MG/2 ML VIAL IV PRN; ONDANSETRON 4 MG/2 ML VIAL IVP ONE; metroNIDAZOLE-NS PMX 500 MG in SALINE 1 100ML.BAG IVPB ONE
[2019-09-26 07:27] LABS: Glucose,Whole Blood 163 mg/dL (75-99)
--- NOTE | 2019-09-26 07:58 | P.GSHP ---
History of Present Illness H&P Date: 09/26/19 Chief Complaint: Abdominal pain This a 68-year-old male with complaints of abdominal pain. Patient recent CAT scan showed evidence of cholelithiasis and a dilated appendix. Patient rents today for laparoscopic ostectomy and laparoscopic appendectomy Past Medical History Past Medical History: Atrial Fibrillation, Diabetes Mellitus, Hyperlipidemia, Hypertension, Myocardial Infarction ([place]) Last Myocardial Infarction Date:: 2012 History of Any Multi-Drug Resistant Organisms: None Reported Past Surgical History: Coronary Bypass/CABG Additional Past Surgical History / Comment(s): CABG in 2013 Past Anesthesia/Blood Transfusion Reactions: No Reported Reaction Smoking Status: Never smoker - Past Family History Brother(s) Family Medical History: Cancer Sister(s) Family Medical History: Cancer Medications and Allergies Home Medications Medication Instructions Recorded Confirmed Type Apixaban [Eliquis] 5 mg PO BID 07/17/19 09/25/19 History Diltiazem HCl 60 mg PO Q8H 07/17/19 09/25/19 History Furosemide [Lasix] 20 mg PO DAILY 07/17/19 09/25/19 History Metoprolol Succinate [Toprol XL] 150 mg PO DAILY 07/17/19 09/25/19 History Ramipril 10 mg PO BID 07/17/19 09/25/19 History Simvastatin [Zocor] 20 mg PO HS 07/17/19 09/25/19 History metFORMIN HCL [Glucophage] 1,000 mg PO BID 07/17/19 09/26/19 History Aspirin 81 mg PO DAILY chew 07/18/19 09/25/19 Rx Donepezil [Aricept] 10 mg PO HS #30 tab 07/18/19 09/25/19 Rx Nitroglycerin Sl Tabs [Nitrostat] 0.4 mg SUBLINGUAL Q5M PRN #50 tab 07/18/19 09/25/19 Rx Magnesium Oxide [Mag-Ox] 400 mg PO BID 09/25/19 09/26/19 History Allergies Allergy/AdvReac Type Severity Reaction Status Date / Time No Known Allergies Allergy Verified 09/26/19 07:41 Surgical - Exam Vital Signs Temp Pulse Resp 96.5 F L 97 16 09/26/19 07:15 09/26/19 07:15 09/26/19 07:15 - General well developed, well nourished, no distress - Eyes PERRL - ENT normal pinna - Neck no masses - Respiratory normal expansion - Cardiovascular Rhythm: regular - Abdomen Mild right lower quadrant and right upper quadrant pain Abdomen: soft Results - Labs Abnormal Lab Results - Last 24 Hours (Table) 09/26/19 Range/Units 07:25 POC Glucose (mg/dL) 163 H (75-99) mg/dL Assessment and Plan Assessment: Cholelithiasis., Right quadrant pain. We'll perform laparoscopic cholecystectomy. Right lower quadrant pain, dilated appendix. We'll perform laparoscopic appendectomy
[2019-09-26] MEDS ORDERED: PROPOFOL 10 MG/ML 20 ML VIAL IV ONE (08:26)
[2019-09-26] MEDS ORDERED: ROCURONIUM BROMIDE 10 MG/ML 5 ML VIAL IV ONE (08:26)
[2019-09-26] MEDS ORDERED: GLYCOPYRROLATE 0.2 MG/ML 2 ML VIAL ONE (08:26)
[2019-09-26] MEDS ORDERED: MIDAZOLAM 2 MG/2 ML VIAL ONE (08:26)
[2019-09-26] MEDS ORDERED: KETOROLAC 30 MG/ML 1 ML VIAL ONE (08:26)
[2019-09-26] MEDS ORDERED: LIDOCAINE 1% INJ 10MG/ML (20 ML MDV) ONE (08:26)
[2019-09-26] MEDS ORDERED: NEOSTIGMINE 1 MG/ML 10 ML VIAL ONE (08:26)
[2019-09-26] MEDS ORDERED: fentaNYL (PF) 50 MCG/ML 2 ML AMP ONE (08:26)
[2019-09-26] MEDS ORDERED: SUCCINYLCHOLINE CHLORIDE 100 MG/5 ML SYR IV ONE (08:26)
[2019-09-26] MEDS ORDERED: LIDOCAINE 1%-EPI 1:100,000 20 ML VIAL SQ ONE (08:47)
--- NOTE | 2019-09-26 09:26 | P.OP ---
Date of Procedure: 09/26/19 Preoperative Diagnosis: Lithiasis Chronic appendicitis Postoperative Diagnosis: Cholelithiasis Cholecystitis Chronic appendicitis Procedure(s) Performed: Laparoscopic appendectomy Laparoscopic cholecystectomy Anesthesia: LIANE Surgeon: Sharan Garcia Estimated Blood Loss (ml): 5 Pathology: other (Gallbladder, appendix) Condition: stable Disposition: PACU Description of Procedure: T[place] patient was placed on the operating table. The patient received a g eneral endotracheal tube anesthesia. The patients abdomen was prepped and draped in the usual sterile fashion. Through an infraumbilical stab incision, the fascia of the anterior abdominal wall was grasped with a pair of Kochers and then the Veress needle was placed in the peritoneal cavity. Position of the Veress needle was confirmed with positive drop test. The abdomen was then insufflated. After adequate insufflation, the 10 mm trocar was placed in the peritoneal cavity. Following this the laparoscope was placed in the peritoneal cavity. The patient was placed in the head-up, right side up position and then a 5 mm trocar was placed in the right lateral and right subcostal position under direct visualization. A 8 mm trocar was placed in the epigastric position. The gallbladder was grasped in the fundus and infundibulum. Traction on the gallbladder was placed in the lateral and the cephalad positions. The triangle of Calot was visualized.. The cystic duct was bluntly dissected until the union of the cystic duct and common bile duct was seen. A critical view of safety was achieved. The cystic duct was then divided and sealed with the Harmonic scissors. A PDS Endoloop was then placed throughout the cystic duct stump. The cystic artery divided and sealed with the Harmonic scissors. The gallbladder was then removed from the liver bed using Harmonic scissors. The gallbladder was then extracted through the epigastric port site. Operative field was checked for any bleeding spots and Harmonic scissors was used to coagulate the liver bed. The abdomen was irrigated. Next, a 5 mm trochars placed in the left lateral position. The patient's placed in the right side up Trendelenburg position. The appendix was visualized. The Juliana appeared be thickened. The adhesions to the appendix were lysed. Using the Harmonic scissors the mesoappendix was divided. And then a Endoloop was placed around the base of the appendix. The Endoloop was secured and then the appendectomy was performed by dividing the appendix at the base. The pelvis and brought out through the 10 mm trocar site. The operative field was irrigated. The trocars were removed. The skin was closed using interrupted 3-0 Vicryl suture. Dermabond dressing were applied. The patient tolerated the procedure well.
[2019-09-26 09:38] VITALS: TEMP 97
[2019-09-26 09:44] LABS: Glucose,Whole Blood 163 mg/dL (75-99)
[2019-09-26 09:58] VITALS: RESP 18
[2019-09-26 10:45] VITALS: BP 143/88; PULSE 88
== END 2019-09-26 11:08 | disposition home or self-care (01) ==
LOC: OR 06:41
PROVIDERS: ATTEND Surgery
DX: K80.10 Calculus of gallbladder with chronic cholecystitis without obstruction (principal); K36 Other appendicitis; I10 Essential (primary) hypertension; I25.10 Atherosclerotic heart disease of native coronary artery without angina pectoris; I25.2 Old myocardial infarction; I48.91 Unspecified atrial fibrillation; E11.9 Type 2 diabetes mellitus without complications; E78.5 Hyperlipidemia, unspecified; Z95.1 Presence of aortocoronary bypass graft; Z79.01 Long term (current) use of anticoagulants; Z79.82 Long term (current) use of aspirin; Z79.84 Long term (current) use of oral hypoglycemic drugs; Z79.899 Other long term (current) drug therapy; Z80.9 Family history of malignant neoplasm, unspecified
CPT/HCPCS: 88304; 47562; 44970; J2250; J1644; J1100; J2710; J0690; J2405; J2001; J3010; J1885; J0330; J2704

== ENCOUNTER 2021-04-01 06:26 | Day surgery (SDC) | payer MEDICARE ==
[~2021-04-01 06:26] MED LIST changes: -DEXAMETHASONE SOD PHOSPHATE 10 MG/ML 1 ML VIAL IV ONE; -HEPARIN SODIUM,PORCINE 5,000 UNIT/ML 1 ML VIAL SQ ONE; -HYDROmorphone 0.5 MG/0.5 ML SYRINGE IVP PRN; -LACTATED RINGERS 1,000 ML IV SCH; -MIDAZOLAM 2 MG/2 ML VIAL IV PRN; -ONDANSETRON 4 MG/2 ML VIAL IVP ONE; -metroNIDAZOLE-NS PMX 500 MG in SALINE 1 100ML.BAG IVPB ONE
[2021-04-01 06:59] VITALS: TEMP 97.3
[2021-04-01 07:10] LABS: Glucose,Whole Blood 128 mg/dL (75-99)
[2021-04-01] MEDS: LACTATED RINGERS 1,000 ML IV SCH ×2 (07:20→07:23)
[2021-04-01] MEDS ORDERED: PROPOFOL 10 MG/ML 20 ML VIAL IV ONE (07:25)
--- NOTE | 2021-04-01 07:58 | P.PCN ---
Date of Procedure: 04/01/21 Procedure(s) Performed: BRIEF HISTORY: Patient is a 70-year-old pleasant white male scheduled for an elective colonoscopy as a part of evaluation of positivecologuard. PROCEDURE PERFORMED: Colonoscopy with snare polypectomy and Endo Clip placement. PREOPERATIVE DIAGNOSIS: Positive cologuard IV sedation per Anesthesia. PROCEDURE: After informed consent was obtained, the patient, was brought into the endoscopy unit. IV sedation was administered by Anesthesia under continuous monitoring. Digital rectal examination was normal. Initially the Olympus CF-160 flexible video colonoscope was then inserted in the rectum, gradually advanced into the cecum without any difficulty. Careful examination was performed as the scope was gradually being withdrawn. Ileocecal valve and the appendiceal orifice were visualized and appeared normal. Prep was excellent. There were 2 polyps noted in the cecum measuring 1 cm in size removed by snare polypectomy. The ascending colon there was a 3 cm broad-based polyp that was removed by piecemeal snare polypectomy and almost complete polypectomy was accomplished. Endo clip was placed to prevent post-polypectomy bleed. In the hepatic flexure there was a 2 cm polyp removed by snare polypectomy. In the transverse colon there was a 1 cm and 3 cm presently related polyp removed by snare polypectomy. In the descending colon there were 2 polyps measuring 5 mm in size that was removed by snare polypectomy. And in the sigmoid colon there was a 5 mm polyp removed by snare polypectomy.. Retroflexion was performed in the rectum and no lesions were seen. The patient tolerated the procedure well. IMPRESSION: 3 cm broad-based ascending colon polyp status post piecemeal snare polypectomy and complete polypectomy accomplished, status post Endo Clip placement 1 cm 2 cecal polyp status post polypectomy 2 cm hepatic flexure polyp status post polypectomy 3 cm pedunculated transverse colon polyp status post polypectomy 5 mm and 1 cm descending colon polyp is post polypectomy 5 mm sigmoid polyp status post snare polypectomy RECOMMENDATIONS: Findings of this examination were discussed with the patient as well as his family. He was advised to follow with the biopsy results. He will be seen in office in 2 weeks and based the biopsy results will plan a repeat colonoscopy in 3-6 months to ensure complete polypectomy of the ascending colon polyp..
[2021-04-01 08:15] VITALS: BP 139/66; PULSE 62; RESP 16
== END 2021-04-01 08:40 | disposition home or self-care (01) ==
LOC: ORWHC2ENDO 06:26
PROVIDERS: ATTEND Internal Medicine Gastroenterology
DX: D12.2 Benign neoplasm of ascending colon (principal); D12.0 Benign neoplasm of cecum; D12.4 Benign neoplasm of descending colon; D12.3 Benign neoplasm of transverse colon; D12.5 Benign neoplasm of sigmoid colon; I10 Essential (primary) hypertension; E78.5 Hyperlipidemia, unspecified; E11.9 Type 2 diabetes mellitus without complications; I25.2 Old myocardial infarction; Z95.1 Presence of aortocoronary bypass graft; Z79.899 Other long term (current) drug therapy; Z79.01 Long term (current) use of anticoagulants; Z79.84 Long term (current) use of oral hypoglycemic drugs
CPT/HCPCS: 88305; 45385; J2704; 45382

== ENCOUNTER 2021-10-07 08:45 | Day surgery (SDC) | payer MEDICARE ==
[2021-10-06 12:15] VITALS: BMI 30.1
[2021-10-07] MEDS ORDERED: LACTATED RINGERS 1,000 ML IV SCH (09:02)
[2021-10-07] MEDS ORDERED: LIDOCAINE 1% (10MG/ML) FOR IV START INTRADERMA PRN (09:02)
[2021-10-07 09:10] VITALS: TEMP 97.6
[2021-10-07 09:43] LABS: Glucose,Whole Blood 229 mg/dL (75-99)
[2021-10-07] MEDS ORDERED: hydrALAZINE HCL 20 MG/ML 1 ML VIAL IVP ONE (09:44)
[2021-10-07] MEDS ORDERED: LIDOCAINE 2% INJ 20 MG/ML (2 ML VIAL) ONE (09:51)
[2021-10-07] MEDS ORDERED: PROPOFOL 10 MG/ML 20 ML VIAL IV ONE (09:51)
--- NOTE | 2021-10-07 10:10 | P.PCN ---
Date of Procedure: 10/07/21 Procedure(s) Performed: BRIEF HISTORY: Patient is a 70-year-old pleasant white male scheduled for an elective colonoscopy as a part of evaluation of multiple colon polyps noted on a routine colonoscopy in March 2021. He had 9 polyps noted which revealed adenoma. PROCEDURE PERFORMED: Colonoscopy with snare polypectomy. PREOPERATIVE DIAGNOSIS: Multiple colon polyps in March 2020. IV sedation per Anesthesia. PROCEDURE: After informed consent was obtained, the patient, was brought into the endoscopy unit. IV sedation was administered by Anesthesia under continuous monitoring. Digital rectal examination was normal. Initially the Olympus CF-160 flexible video colonoscope was then inserted in the rectum, gradually advanced into the cecum without any difficulty. Careful examination was performed as the scope was gradually being withdrawn. Ileocecal valve and the appendiceal orifice were visualized and appeared normal. Prep was excellent. Mucosa of the cecum, appeared normal. Ascending colon there was a 1 cm residual polyp that was removed by snare polypectomy. In the descending colon there was another 1 cm polyp removed by snare polyp. ascending colon, transverse colon, descending colon, sigmoid colon, and rectum appeared normal. Retroflexion was performed in the rectum and no lesions were seen. The patient tolerated the procedure well. IMPRESSION: 1 cm residual polyp in ascending colon status post snare polypectomy 1 cm residual polyp in the descending colon status post polypectomy Rest of the colon appeared normal RECOMMENDATIONS: Findings of this examination were discussed with the patient as well as his family. He was advised to follow with the biopsy results. If the biopsy reveals adenoma he can have a repeat colonoscopy in 3 years..
[2021-10-07 10:19] VITALS: RESP 18
[2021-10-07 10:20] LABS: Glucose,Whole Blood 220 mg/dL (75-99)
[2021-10-07 10:26] VITALS: BP 153/70; PULSE 67
== END 2021-10-07 10:44 | disposition home or self-care (01) ==
LOC: ORWHC2ENDO 08:45
PROVIDERS: ATTEND Internal Medicine Gastroenterology
DX: Z12.11 Encounter for screening for malignant neoplasm of colon (principal); D12.2 Benign neoplasm of ascending colon; D12.4 Benign neoplasm of descending colon; Z86.010 Personal history of colon polyps; I25.10 Atherosclerotic heart disease of native coronary artery without angina pectoris; I10 Essential (primary) hypertension; E78.5 Hyperlipidemia, unspecified; I48.91 Unspecified atrial fibrillation; E11.9 Type 2 diabetes mellitus without complications; Z95.1 Presence of aortocoronary bypass graft; Z79.01 Long term (current) use of anticoagulants; Z79.02 Long term (current) use of antithrombotics/antiplatelets; Z79.899 Other long term (current) drug therapy; Z79.82 Long term (current) use of aspirin; Z90.49 Acquired absence of other specified parts of digestive tract
CPT/HCPCS: 88305; 45385; J0360; J2704; J2001

== ENCOUNTER 2021-11-17 15:59 | Emergency (ER) | payer MEDICARE ==
[2021-11-17 16:03] VITALS: TEMP 97.6
[2021-11-17 16:45] LABS: Basophils % (A) 0 %; Eosinophils # (A) 0.1 k/uL (0-0.7); Eosinophils % (A) 2 %; HCT 29.1 % (39.0-53.0); HGB 9.2 gm/dL (13.0-17.5); Hypochromasia Marked; Lymphocytes % (A) 16 %; MCH 25.2 pg (25.0-35.0); MCHC 31.5 g/dL (31.0-37.0); MCV 79.7 fL (80.0-100.0); Mean Platelet Volume 7.5; Monocytes # (A) 0.4 k/uL (0-1.0); Monocytes % (A) 7 %; Neutrophils # (A) 4.4 k/uL (1.3-7.7); Neutrophils % (A) 73 %; Platelet Count 208 k/uL (150-450); Poikilocytosis Slight; RBC 3.65 m/uL (4.30-5.90); RDW 14.5 % (11.5-15.5)
[2021-11-17 16:56] LABS: INR 1.1 (<1.2); Partial Thromboplastin Time 25.8 sec (22.0-30.0); Prothrombin Time 11.4 sec (9.0-12.0)
[2021-11-17 17:01] LABS: Albumin 4.4 g/dL (3.5-5.0); Calcium 9.5 mg/dL (8.4-10.2); Potassium 4.2 mmol/L (3.5-5.1); Total Bilirubin 0.7 mg/dL (0.2-1.3); Total Protein 7.5 g/dL (6.3-8.2)
[2021-11-17 17:02] LABS: Magnesium 1.5 mg/dL (1.6-2.3)
--- NOTE | 2021-11-17 17:16 | XR ---
EXAMINATION TYPE: XR chest 2V DATE OF EXAM: 11/17/2021 4:51 PM COMPARISON: Chest radiographs from 07/17/2019 TECHNIQUE: XR chest 2V Frontal and lateral views of the chest. CLINICAL INDICATION:Male, 71 years old with history of difficulty breathing; FINDINGS: Lungs/Pleura: There is no evidence of pleural effusion, focal consolidation, or pneumothorax. Pulmonary vascularity: Unremarkable. Heart/mediastinum: Cardiomediastinal silhouette is enlarged and stable. Musculoskeletal: No acute osseous pathology. Midline sternotomy wires are noted and stable. IMPRESSION: No acute cardiopulmonary disease/process. Cardiomegaly. No obvious heart failure, consider correlation with serum BNP.
--- NOTE | 2021-11-17 18:15 | CT ---
EXAMINATION TYPE: CT angio thor/abd pel aorta CT DLP: 1658.9 mGycm, Automated exposure control for dose reduction was used. DATE OF EXAM: 11/17/2021 5:48 PM COMPARISON: CT chest abdomen 09/12/2019. CLINICAL INDICATION:Male, 71 years old with history of back pain, posterior chest pain, SOB TECHNIQUE: Dissection protocol: Multiple axial CT images of the chest, abdomen, and pelvis were obtai leida prior and to the administration of IV contrast. 3-D reformats and maximum intensity projection fo rmat were performed on a separate workstation. Contrast used:100 mL of Isovue 370 without and with IV Contrast, Oral contrast used: FINDINGS: ARTERIAL VASCULATURE: There is scattered atherosclerosis of the arterial vasculature. There is no linda dence of intramural hematoma noncontrast imaging. Postcontrast imaging does not demonstrate evidence of intimal flap to suggest dissection. There is no evidence of aneurysm. The celiac access, inferior mesenteric artery, bilateral renal arteries and inferior mesenteric artery are all patent. There is m ild (less than 50%) stenosis secondary to atherosclerotic plaquing at the origin of the inferior mese nteric artery. PULMONARY ARTERIAL VASCULATURE: Normal caliber. No evidence of filling defect to suggest pulmonary em bolus. VENOUS SYSTEM: Unremarkable. Lungs/pleura: No evidence of focal consolidation, pneumothorax or pleural effusion. Heart: Heart is moderately enlarged for size there is severe coronary artery atherosclerosis and post CABG changes. Aortic valve leaflet calcifications. Mediastinum: No gross evidence of adenopathy. Lower Neck: No significant findings. Abdomen: Liver: Unremarkable. Gallbladder and Bile ducts: Unremarkable. Pancreas: Unremarkable. Spleen: Unremarkable. Adrenal glands: Unremarkable. Kidneys and Ureters: No hydronephrosis. Stomach and Bowel: No evidence of bowel obstruction. Peritoneum: No evidence of pneumoperitoneum, free fluid, or adenopathy. Bladder: Unremarkable. Reproductive: Unremarkable. Abdominal wall/soft tissues: Fatty changes in the inguinal canals. Musculoskeletal: The osseous structures appear intact. There is moderate osteophytes of the hips bila terally. Multilevel disc degeneration changes are seen throughout the spine. Sternotomy wires are pre sent. IMPRESSION: 1. No evidence for thoracic aortic dissection. 2. No evidence of aortic aneurysm. 3. Severe coronary artery atherosclerosis CABG changes. 4. Aortic valve leaflet calcifications, mild. 5. No evidence of pulmonary embolism. 6. Moderate cardiomegaly. 7. No evidence for acute process within the chest abdomen or pelvis.
--- NOTE | 2021-11-17 18:32 | ED ---
General Adult HPI - General Chief complaint: Back Pain/Injury Stated complaint: chest & back pain Time Seen by Provider: 11/17/21 16:20 Source: patient, RN notes reviewed, old records reviewed Mode of arrival: ambulatory Limitations: no limitations - History of Present Illness Initial comments: Patient is a 71-year-old male with past medical history remarkable for CABG, afib on blood thinner, heart failure, cardiac stents who presents emergency Department complaining of intermittent back pain as well as somewhat worsening exertional shortness of breath over the last few weeks. The back pain is more acute, and is located he states between the shoulder blades. Describes it as sharp in nature. Denies any chest pain. Does endorse shortness of breath as well that is worse with exertion. Endorses mild orthopnea. Denies PND. Denies lower extremity edema or abdominal distention. Has been compliant with his diuresis. His no other acute complaints at this time. Presents over concern for possible cardiac etiology for his current symptoms. States that the back pain is the primary reason, however he currently is not experiencing it. Descri bes it as sharp. Nonradiating. Currently is not experiencing it. - Related Data Home Medications Medication Instructions Recorded Confirmed Apixaban [Eliquis] 5 mg PO BID 07/17/19 11/17/21 Furosemide [Lasix] 20 mg PO MOWEFR 07/17/19 11/17/21 Sotalol [Betapace] 40 mg PO DIRECTED 03/30/21 11/17/21 Aspirin [Adult Low Dose Aspirin EC] 81 mg PO DAILY 10/06/21 11/17/21 Rosuvastatin [Crestor] 20 mg PO DAILY 10/06/21 11/17/21 Sacubitril/Valsartan [Entresto 24 1 each PO BID 10/06/21 11/17/21 mg-26 mg Tablet] hydrALAZINE HCL 50 mg PO BID 10/06/21 11/17/21 Isosorbide Dinitrate 10 mg PO BID 11/17/21 11/17/21 lisinopriL [Zestril] 10 mg PO HS 11/17/21 11/17/21 lisinopriL [Zestril] 20 mg PO DAILY 11/17/21 11/17/21 Allergies Allergy/AdvReac Type Severity Reaction Status Date / Time No Known Allergies Allergy Verified 11/17/21 17:27 Review of Systems ROS Statement: Those systems with pertinent positive or pertinent negative responses have been documented in the HPI. Review of Systems: CONST: Denies fever EYES: Denies blurry vision ENT: Denies nasal congestion C/V: Denies Chest pain RESP: Denies shortness of breath GI: Denies abdominal pain : Denies dysuria SKIN: Denies rash. MSK: Endorses back pain NEURO: Denies headache ROS Other: All systems not noted in ROS Statement are negative. Past Medical History Past Medical History: Atrial Fibrillation, Diabetes Mellitus, Hyperlipidemia, Hypertension, Myocardial Infarction ([place]) Last Myocardial Infarction Date:: 2012 History of Any Multi-Drug Resistant Organisms: None Reported Past Surgical History: Appendectomy, Cholecystectomy, Coronary Bypass/CABG Additional Past Surgical History / Comment(s): CABG in 2013. Past Anesthesia/Blood Transfusion Reactions: No Reported Reaction Past Psychological History: No Psychological Hx Reported Smoking Status: Never smoker Past Alcohol Use History: Occasional Past Drug Use History: None Reported - Past Family History Brother(s) Family Medical History: Cancer Sister(s) Family Medical History: Cancer General Exam - General Exam Comments Initial Comments: General: Appears in no acute distress. HEAD: Normal with no signs of head trauma. EYES: PERRLA, EOMI, conjunctiva normal, no discharge. ENT: Hearing grossly intact, normal oropharynx. RESPIRATORY: Clear breath sounds bilaterally. No wheezes, rales, or rhonchi. C/V: Regular rate and rhythm. S1 and S2 auscultated, no edema, peripheral pulses 2+ and intact throughout ABD: Abd is soft, nontender, nondistended EXT: Normal range of motion, no obvious deformity SKIN: No rashes or lesions observed on exposed skin. NEURO: Alert and oriented x 4. Cranial nerves II-XII intact. No focal sensory or strength deficits. Limitations: no limitations Course Vital Signs 11/17/21 11/17/21 11/17/21 16:01 16:20 16:38 Temperature 97.6 F Pulse Rate 81 77 Respiratory 18 22 Rate Blood Pressure 203/104 127/64 173/78 O2 Sat by Pulse 98 99 Oximetry 11/17/21 19:31 Temperature Pulse Rate 70 Respiratory 18 Rate Blood Pressure 182/95 O2 Sat by Pulse 99 Oximetry Medical Decision Making - Medical Decision Making Based on the patient's presentation and physical exam, I'm concerned for cardiopulmonary etiology for his current symptoms. Patient describes his back pain as sharp and was suddenly severe. When present, he states his extremity severe. With his cardiac history, history on blood thinners, did discuss the possibility dissection would like to obtain a CT angiogram. He was in agreement this plan. I suspect this still unlikely, however cannot definitively rule out. We will obtain cardiac labs otherwise. Patient was in agreement this plan. EKG showed no signs of acute ischemia. Laboratory studies were remarkable for chronic microcytic anemia with hemoglobin 9.2. Magnesium slightly decreased. Troponin is undetectable. BNP is within normal limits for the patient's age. No other findings. Chest x-ray shows no acute cardiopulmonary process. CT angios shows no signs of acute dissection. No findings of aneurysm. Chronic changes seen. No acute process. On reevaluation, patient was walked and pulse ox remained above 96%. We did discuss his symptoms as well as his workup. I do believe it is safe for him to be discharged home at this time with close follow-up. He was in agreement this plan. Would not like to remain in the hospital. Vital signs remained within normal limits throughout his stay. I instructed the patient to follow up with their PCP in the next 1-3 days. I explained that the patient should return to the emergency department if they experience any worsening symptoms. Strict return precautions were discussed with the patient. The patient expressed understanding of these instructions. I answered all questions that the patient had. The patient was discharged home in good condition with their prescriptions and follow up information. - Lab Data Result diagrams: 11/17/21 16:37 11/17/21 16:37 Lab Results 11/17/21 11/17/21 11/17/21 Range/Units 16:37 16:37 16:37 WBC 6.0 (3.8-10.6) k/uL RBC 3.65 L (4.30-5.90) m/uL Hgb 9.2 L (13.0-17.5) gm/dL Hct 29.1 L (39.0-53.0) % MCV 79.7 L (80.0-100.0) fL MCH 25.2 (25.0-35.0) pg MCHC 31.5 (31.0-37.0) g/dL RDW 14.5 (11.5-15.5) % Plt Count 208 (150-450) k/uL MPV 7.5 Neutrophils % 73 % Lymphocytes % 16 % Monocytes % 7 % Eosinophils % 2 % Basophils % 0 % Neutrophils # 4.4 (1.3-7.7) k/uL Lymphocytes # 1.0 (1.0-4.8) k/uL Monocytes # 0.4 (0-1.0) k/uL Eosinophils # 0.1 (0-0.7) k/uL Basophils # 0.0 (0-0.2) k/uL Hypochromasia Marked Poikilocytosis Slight PT 11.4 (9.0-12.0) sec INR 1.1 (<1.2) APTT 25.8 (22.0-30.0) sec Sodium 135 L (137-145) mmol/L Potassium 4.2 (3.5-5.1) mmol/L Chloride 101 (98-107) mmol/L Carbon Dioxide 23 (22-30) mmol/L Anion Gap 11 mmol/L BUN 18 (9-20) mg/dL Creatinine 1.18 (0.66-1.25) mg/dL Est GFR (CKD-EPI)AfAm 71 (>60 ml/min/1.73 sqM) Est GFR (CKD-EPI)NonAf 62 (>60 ml/min/1.73 sqM) Glucose 274 H (74-99) mg/dL Calcium 9.5 (8.4-10.2) mg/dL Magnesium 1.5 L (1.6-2.3) mg/dL Total Bilirubin 0.7 (0.2-1.3) mg/dL AST 23 (17-59) U/L ALT 15 (4-49) U/L Alkaline Phosphatase 46 (38-126) U/L Troponin I (0.000-0.034) ng/mL NT-Pro-B Natriuret Pep pg/mL Total Protein 7.5 (6.3-8.2) g/dL Albumin 4.4 (3.5-5.0) g/dL 11/17/21 11/17/21 Range/Units 16:37 16:37 WBC (3.8-10.6) k/uL RBC (4.30-5.90) m/uL Hgb (13.0-17.5) gm/dL Hct (39.0-53.0) % MCV (80.0-100.0) fL MCH (25.0-35.0) pg MCHC (31.0-37.0) g/dL RDW (11.5-15.5) % Plt Count (150-450) k/uL MPV Neutrophils % % Lymphocytes % % Monocytes % % Eosinophils % % Basophils % % Neutrophils # (1.3-7.7) k/uL Lymphocytes # (1.0-4.8) k/uL Monocytes # (0-1.0) k/uL Eosinophils # (0-0.7) k/uL Basophils # (0-0.2) k/uL Hypochromasia Poikilocytosis PT (9.0-12.0) sec INR (<1.2) APTT (22.0-30.0) sec Sodium (137-145) mmol/L Potassium (3.5-5.1) mmol/L Chloride (98-107) mmol/L Carbon Dioxide (22-30) mmol/L Anion Gap mmol/L BUN (9-20) mg/dL Creatinine (0.66-1.25) mg/dL Est GFR (CKD-EPI)AfAm (>60 ml/min/1.73 sqM) Est GFR (CKD-EPI)NonAf (>60 ml/min/1.73 sqM) Glucose (74-99) mg/dL Calcium (8.4-10.2) mg/dL Magnesium (1.6-2.3) mg/dL Total Bilirubin (0.2-1.3) mg/dL AST (17-59) U/L ALT (4-49) U/L Alkaline Phosphatase (38-126) U/L Troponin I <0.012 (0.000-0.034) ng/mL NT-Pro-B Natriuret Pep 847 pg/mL Total Protein (6.3-8.2) g/dL Albumin (3.5-5.0) g/dL - EKG Data -: EKG Interpreted by Me EKG Comments: 12-lead Electrocardiogram Interpretation Note EKG was reviewed and interpreted by myself. 12-lead ECG performed at 1612 is interpreted by me as revealing atrial fibrillation rate controlled at a rate of 77 beats per minute. [place] is normal. QRS duration is 105 ms, QTc is 419 ms.. There were no ST or T wave abnormalities to suggest myocardial ischemia or injury. R wave progression across the precordium was satisfactory. By my interpretation this EKG is non-diagnostic for acute ischemia. Relatively unchanged from prior EKGs in June 2019 that were reviewed. Disposition Clinical Impression: Back pain, History of atrial fibrillation Disposition: HOME SELF-CARE Condition: Good Instructions (If sedation given, give patient instructions): Musculoskeletal Pain (ED) Is patient prescribed a controlled substance at d/c from ED?: No Referrals: Reji Alston MD [Primary Care Provider] - 1-2 days Time of Disposition: 19:00
[2021-11-17 19:32] VITALS: BP 182/95; PULSE 70; RESP 18
== END 2021-11-17 19:32 | disposition home or self-care (01) ==
LOC: EC 15:59
DX: M54.9 Dorsalgia, unspecified (principal); I48.91 Unspecified atrial fibrillation; E11.9 Type 2 diabetes mellitus without complications; I10 Essential (primary) hypertension; I25.2 Old myocardial infarction; E78.5 Hyperlipidemia, unspecified; Z95.1 Presence of aortocoronary bypass graft; Z79.01 Long term (current) use of anticoagulants; Z79.899 Other long term (current) drug therapy; Z79.82 Long term (current) use of aspirin
CPT/HCPCS: 36415; 93005; 83880; 80053; 83735; 84484; 85025; 85610; 85730; 71046; 71275; 74174; 99285; Q9967

== ENCOUNTER → 2022-04-08 | Outpatient (CLI) | payer MEDICARE ==
--- NOTE | 2022-04-08 16:15 | US ---
EXAMINATION TYPE: US kidneys/renal and bladder DATE OF EXAM: 04/08/2022 COMPARISON: NONE CLINICAL HISTORY: R80.9 PROTEINURIA, UNSP. protein in urine, no symptoms EXAM MEASUREMENTS: Right Kidney: 11.2 x 5.7 x 6.4 cm Left Kidney: 10.7 x 53 x 7.2 cm Right Kidney: No hydronephrosis or masses seen Left Kidney: No hydronephrosis or masses seen Bladder: not fully distended ascites seen throughout exam IMPRESSION: 1. Normal renal ultrasound. 2. Ascites
== END | disposition home or self-care (01) ==
LOC: RADUSWWP 15:31
PROVIDERS: ATTEND Family Medicine
DX: R18.8 Other ascites (principal); R80.9 Proteinuria, unspecified
CPT/HCPCS: 76770

== ENCOUNTER 2022-09-04 21:38 | Emergency (ER) | payer MEDICARE ==
[2022-09-04 21:56] VITALS: RESP 18
[2022-09-04 23:17] LABS: Anisocytosis Slight; Basophils % (A) 0 %; Eosinophils # (A) 0.1 k/uL (0-0.7); Eosinophils % (A) 1 %; HCT 27.8 % (39.0-53.0); HGB 8.6 gm/dL (13.0-17.5); Hypochromasia Moderate; Lymphocytes # (A) 0.9 k/uL (1.0-4.8); Lymphocytes % (A) 14 %; MCH 24.3 pg (25.0-35.0); MCV 78.3 fL (80.0-100.0); Mean Platelet Volume 8.1; Microcytosis Slight; Monocytes # (A) 0.5 k/uL (0-1.0); Monocytes % (A) 7 %; Neutrophils # (A) 4.4 k/uL (1.3-7.7); Neutrophils % (A) 74 %; Platelet Count 157 k/uL (150-450); Poikilocytosis Slight; RBC 3.55 m/uL (4.30-5.90); RDW 17.6 % (11.5-15.5)
[2022-09-04 23:28] LABS: Albumin 3.1 g/dL (3.5-5.0); Calcium 8.4 mg/dL (8.4-10.2); Magnesium 1.8 mg/dL (1.6-2.3); Potassium 3.5 mmol/L (3.5-5.1); Total Protein 6.4 g/dL (6.3-8.2)
[2022-09-04] MEDS ORDERED: FUROSEMIDE 10 MG/ML 4 ML VIAL IV STA (23:39)
[2022-09-04] MEDS ORDERED: MORPHINE SULFATE 4 MG/ML SYRINGE IVP STA (23:39)
--- NOTE | 2022-09-05 00:23 | XR ---
EXAM: XR Chest, 2 Views CLINICAL HISTORY: ITS.REASON XR Reason: CP TECHNIQUE: Frontal and lateral views of the chest. COMPARISON: No relevant prior studies available. FINDINGS: Lungs: See below. Pleural space: Small bilateral pleural effusions. Mild pulmonary vascular congestion. Correlate for mild congestive heart failure. No pneumothorax. Heart: Cardiomegaly. Mediastinum: Unremarkable. Bones/joints: Unremarkable. IMPRESSION: Small bilateral pleural effusions. Mild pulmonary vascular congestion. Correlate for mild congestive heart failure.
--- NOTE | 2022-09-05 01:40 | ED ---
General Adult HPI - General Chief complaint: Chest Pain Stated complaint: SOB - CHF Time Seen by Provider: 09/04/22 22:39 Source: patient, family Mode of arrival: ambulatory Limitations: no limitations - History of Present Illness Initial comments: This is a 71-year-old male with a past medical history including hypertension and CHF with recurrent ascites presents emergency department for left posterior lower rib and upper abdominal pain. The patient stated that this usually happens when he has increasing fluid. The patient has been taking his Lasix as prescribed however has been having increasing sodium filled food including [employer] earlier today. The patient denied any shortness of breath, difficulty in breathing or chest pain. The patient denied any other acute pain or complaints at this time. - Related Data Home Medications Medication Instructions Recorded Confirmed Apixaban [Eliquis] 5 mg PO BID 07/17/19 11/17/21 Furosemide [Lasix] 20 mg PO MOWEFR 07/17/19 11/17/21 Sotalol [Betapace] 40 mg PO DIRECTED 03/30/21 11/17/21 Aspirin [Adult Low Dose Aspirin EC] 81 mg PO DAILY 10/06/21 11/17/21 Rosuvastatin [Crestor] 20 mg PO DAILY 10/06/21 11/17/21 Sacubitril/Valsartan [Entresto 24 1 each PO BID 10/06/21 11/17/21 mg-26 mg Tablet] hydrALAZINE HCL 50 mg PO BID 10/06/21 11/17/21 Isosorbide Dinitrate [Monoket] 10 mg PO BID 11/17/21 11/17/21 lisinopriL [Zestril] 10 mg PO HS 11/17/21 11/17/21 lisinopriL [Zestril] 20 mg PO DAILY 11/17/21 11/17/21 Previous Rx's Medication Instructions Recorded methocarbamoL [Robaxin-750] 750 mg PO TID #30 tab 09/05/22 Allergies Allergy/AdvReac Type Severity Reaction Status Date / Time No Known Allergies Allergy Verified 11/17/21 17:27 Review of Systems ROS Statement: Those systems with pertinent positive or pertinent negative responses have been documented in the HPI. ROS Other: All systems not noted in ROS Statement are negative. Past Medical History Past Medical History: Atrial Fibrillation, Chest Pain / Angina, Diabetes Mellitus, Hyperlipidemia, Hypertension, Myocardial Infarction (MA) Additional Past Medical History / Comment(s): CHF Last Myocardial Infarction Date:: 2012 History of Any Multi-Drug Resistant Organisms: None Reported Past Surgical History: Appendectomy, Cholecystectomy, Coronary Bypass/CABG Additional Past Surgical History / Comment(s): CABG in 2013. Past Anesthesia/Blood Transfusion Reactions: No Reported Reaction Past Psychological History: No Psychological Hx Reported Smoking Status: Never smoker Past Alcohol Use History: Occasional Past Drug Use History: None Reported - Past Family History Brother(s) Family Medical History: Cancer Sister(s) Family Medical History: Cancer General Exam Limitations: no limitations General appearance: alert, in no apparent distress Head exam: Present: atraumatic, normocephalic, normal inspection Eye exam: Present: normal appearance, PERRL Pupils: Present: normal accommodation ENT exam: Present: normal exam, normal oropharynx, mucous membranes moist Neck exam: Present: normal inspection, full ROM Respiratory exam: Present: normal lung sounds bilaterally Cardiovascular Exam: Present: regular rate, normal rhythm, normal heart sounds GI/Abdominal exam: Present: soft, normal bowel sounds Extremities exam: Present: normal inspection, full ROM, pedal edema Back exam: Present: normal inspection, full ROM Neurological exam: Present: alert, oriented X3, CN II-XII intact Psychiatric exam: Present: normal affect, normal mood Skin exam: Present: warm, dry Course Vital Signs 09/04/22 21:52 Temperature 97.3 F L Pulse Rate 73 Respiratory 18 Rate Blood Pressure 135/89 O2 Sat by Pulse 98 Oximetry EKG Findings - EKG Comments: EKG Findings:: An EKG was obtained and was interpreted by myself showing a rate of 85, QRS duration of 201, QTC of 517. This EKG showed a paced rhythm without any ST segment elevation or depression noted. Medical Decision Making - Medical Decision Making Was pt. sent in by a medical professional or institution (, PA, SEPTIC TANK INSTALLER, urgent care, hospital, or skilled nursing...) When possible be specific @ -No Did you speak to anyone other than the patient for history (EMS, parent, family, police, friend...)? What history was obtained from this source @ -Yes, patient's who did confirm the patient's increasing pain and history that it is worse with increasing fluids. Did you review nursing and triage notes (agree or disagree)? Why? @ -I reviewed and agree with nursing and triage notes Were old charts reviewed (outside hosp., previous admission, EMS record, old EKG, old radiological studies, urgent care reports/EKG's, skilled nursing records)? Report findings @ -No old charts were reviewed Differential Diagnosis (chest pain, altered mental status, abdominal pain women, abdominal pain men, vaginal bleeding, weakness, fever, dyspnea, syncope, headache, dizziness, GI bleed, back pain, seizure, CVA, palpatations, mental health)? @ -Fluid overload, worsening ascites, musculoskeletal strain versus spasm EKG interpreted by me (3pts min.). @ -As above X-rays interpreted by me (1pt min.). @ -Chest x-ray was obtained and was interpreted by myself showing small bilateral pleural effusions and mild pulmonary vascular congestion. CT interpreted by me (1pt min.). @ -None done U/S interpreted by me (1pt. min.). @ -None done What testing was considered but not performed or refused? (CT, X-rays, U/S, labs)? Why? @ -None What meds were considered but not given or refused? Why? @ -None Did you discuss the management of the patient with other professionals (professionals i.e. , PA, SEPTIC TANK INSTALLER, lab, RT, psych nurse, child protective services social worker, civil engineer's aide, teacher, chief scientific officer, case managers)? Give summary @ -No Was smoking cessation discussed for >3mins.? @ -No Was critical care preformed (if so, how long)? @ -No Were there social determinants of health that impacted care today? How? (Homelessness, low income, unemployed, alcoholism, drug addiction, transportation, low edu. Level, literacy, decrease access to med. care, fpc, rehab)? @ -No Was there de-escalation of care discussed even if they declined (Discuss DNR or withdrawal of care, Hospice)? DNR status @ -No What co-morbidities impacted this encounter? (DM, HTN, Smoking, COPD, CAD, Cancer, CVA, ARF, Chemo, Hep., AIDS, mental health diagnosis, sleep apnea, morbid obesity)? @ -Congestive heart failure with recurrent ascites, hypertension Was patient admitted / discharged? Hospital course, mention meds given and route, prescriptions, significant lab abnormalities, going to OR and other pertinent info. @ -The patient was seen and evaluated in the emergency department. On physical exam, the patient was resting in bed comfortably. Vital signs were stable. On physical exam, the patient did have reproducible pain to the left posterior chest wall likely secondary to spasm. The patient denied any shortness of b reath or difficulty in breathing. The workup did show a mild CHF exacerbation. The patient was given 40 mg Lasix IV. On reevaluation, the patient did urinate and stated that his pain was completely resolved with 1 dose of morphine. The patient was offered an observation stay for continued diuresis however he stated that he would rather go home and continued diuresis at home. I did stress to h im to decrease his sodium intake to help offset his increasing fluid accumulation. The patient was also told to follow-up with his agriculture intern for further workup and evaluation. The patient was agreeable to this plan and all his questions were answered appropriate. The patient was discharged home in stable condition with his . Undiagnosed new problem with uncertain prognosis? @ -No Drug Therapy requiring intensive monitoring for toxicity (Heparin, Nitro, Insulin, Cardizem)? @ -No Were any procedures done? @ -No Diagnosis/symptom? @ -Mild congestive heart failure exacerbation, muscle spasm Acute, or Chronic, or Acute on Chronic? @ -Acute on chronic Uncomplicated (without systemic symptoms) or Complicated (systemic symptoms)? @ -Uncomplicated Side effects of treatment? @ -No Exacerbation, Progression, or Severe Exacerbation? @ -Mild exacerbation Poses a threat to life or bodily function? How? (Chest pain, USA, MA, pneumonia, PE, COPD, DKA, ARF, appy, cholecystitis, CVA, Diverticulitis, Homicidal, Suicidal, threat to staff... and all critical care pts) @ -No - Lab Data Result diagrams: 09/04/22 23:03 09/04/22 23:03 Lab Results 09/04/22 09/04/22 09/04/22 Range/Units 23:03 23:03 23:03 WBC 6.0 (3.8-10.6) k/uL RBC 3.55 L (4.30-5.90) m/uL Hgb 8.6 L (13.0-17.5) gm/dL Hct 27.8 L (39.0-53.0) % MCV 78.3 L (80.0-100.0) fL MCH 24.3 L (25.0-35.0) pg MCHC 31.0 (31.0-37.0) g/dL RDW 17.6 H (11.5-15.5) % Plt Count 157 (150-450) k/uL MPV 8.1 Neutrophils % 74 % Lymphocytes % 14 % Monocytes % 7 % Eosinophils % 1 % Basophils % 0 % Neutrophils # 4.4 (1.3-7.7) k/uL Lymphocytes # 0.9 L (1.0-4.8) k/uL Monocytes # 0.5 (0-1.0) k/uL Eosinophils # 0.1 (0-0.7) k/uL Basophils # 0.0 (0-0.2) k/uL Hypochromasia Moderate Poikilocytosis Slight Anisocytosis Slight Microcytosis Slight Sodium 136 L (137-145) mmol/L Potassium 3.5 (3.5-5.1) mmol/L Chloride 102 (98-107) mmol/L Carbon Dioxide 22 (22-30) mmol/L Anion Gap 12 mmol/L BUN 29 H (9-20) mg/dL Creatinine 1.60 H (0.66-1.25) mg/dL Est GFR (CKD-EPI)AfAm 50 (>60 ml/min/1.73 sqM) Est GFR (CKD-EPI)NonAf 43 (>60 ml/min/1.73 sqM) Glucose 100 H (74-99) mg/dL Calcium 8.4 (8.4-10.2) mg/dL Magnesium 1.8 (1.6-2.3) mg/dL Total Bilirubin 1.0 (0.2-1.3) mg/dL AST 18 (17-59) U/L ALT 13 (4-49) U/L Alkaline Phosphatase 60 (38-126) U/L Troponin I 0.028 (0.000-0.034) ng/mL NT-Pro-B Natriuret Pep pg/mL Total Protein 6.4 (6.3-8.2) g/dL Albumin 3.1 L (3.5-5.0) g/dL 09/04/22 Range/Units 23:03 WBC (3.8-10.6) k/uL RBC (4.30-5.90) m/uL Hgb (13.0-17.5) gm/dL Hct (39.0-53.0) % MCV (80.0-100.0) fL MCH (25.0-35.0) pg MCHC (31.0-37.0) g/dL RDW (11.5-15.5) % Plt Count (150-450) k/uL MPV Neutrophils % % Lymphocytes % % Monocytes % % Eosinophils % % Basophils % % Neutrophils # (1.3-7.7) k/uL Lymphocytes # (1.0-4.8) k/uL Monocytes # (0-1.0) k/uL Eosinophils # (0-0.7) k/uL Basophils # (0-0.2) k/uL Hypochromasia Poikilocytosis Anisocytosis Microcytosis Sodium (137-145) mmol/L Potassium (3.5-5.1) mmol/L Chloride (98-107) mmol/L Carbon Dioxide (22-30) mmol/L Anion Gap mmol/L BUN (9-20) mg/dL Creatinine (0.66-1.25) mg/dL Est GFR (CKD-EPI)AfAm (>60 ml/min/1.73 sqM) Est GFR (CKD-EPI)NonAf (>60 ml/min/1.73 sqM) Glucose (74-99) mg/dL Calcium (8.4-10.2) mg/dL Magnesium (1.6-2.3) mg/dL Total Bilirubin (0.2-1.3) mg/dL AST (17-59) U/L ALT (4-49) U/L Alkaline Phosphatase (38-126) U/L Troponin I (0.000-0.034) ng/mL NT-Pro-B Natriuret Pep 5960 pg/mL Total Protein (6.3-8.2) g/dL Albumin (3.5-5.0) g/dL Disposition Clinical Impression: CHF (congestive heart failure), Muscle spasm Disposition: HOME SELF-CARE Condition: Stable Instructions (If sedation given, give patient instructions): Ascites (ED), Muscle Spasm (ED) Prescriptions: methocarbamoL [Robaxin-750] 750 mg PO TID #30 tab Is patient prescribed a controlled substance at d/c from ED?: No Referrals: Reji Alston MD [Primary Care Provider] - 1-2 days Time of Disposition: 01:30
[2022-09-05 02:29] VITALS: BP 143/79; PULSE 75; TEMP 97.9
== END 2022-09-05 02:29 | disposition home or self-care (01) ==
LOC: EC 21:38
DX: I11.0 Hypertensive heart disease with heart failure (principal); I50.9 Heart failure, unspecified; M62.838 Other muscle spasm; E11.9 Type 2 diabetes mellitus without complications; I25.2 Old myocardial infarction; I48.91 Unspecified atrial fibrillation; E78.5 Hyperlipidemia, unspecified; Z79.01 Long term (current) use of anticoagulants; Z79.82 Long term (current) use of aspirin; Z79.899 Other long term (current) drug therapy; Z95.1 Presence of aortocoronary bypass graft; Z90.49 Acquired absence of other specified parts of digestive tract
CPT/HCPCS: 36415; 93005; 83880; 80053; 83735; 84484; 85025; 71046; 99285; 96374; 96375; J2270; J1940

== ENCOUNTER 2022-09-10 06:10 | Emergency (ER) | payer MEDICARE ==
[2022-09-10 06:23] VITALS: RESP 18
[2022-09-10] MEDS ORDERED: MORPHINE SULFATE 4 MG/ML SYRINGE IVP STA (07:01)
--- NOTE | 2022-09-10 07:02 | ED ---
General Adult HPI - General Chief complaint: Back Pain/Injury Stated complaint: Back pain Time Seen by Provider: 09/10/22 06:51 Source: patient, family (spouse), RN notes reviewed Mode of arrival: wheelchair Limitations: no limitations - History of Present Illness Initial comments: Patient is a 71-year-old male presenting to the emergency room with persistent lower back pain which was primarily left-sided but now is both left and right-sided. He reports that the back pain has been ongoing for approximately 2 months. He denies any factors including any trauma or falls. He denies any radiculopathy, numbness or tingling, weakness, saddle paresthesia, bowel or bladder incontinence, or other retroflex symptoms for cauda equina. He was recently evaluated in the emergency room for similar symptoms and was placed on Robaxin which was not improving his pain significantly. Ischemic cardiomyopathy with recurrent abdominal ascites. He has had paracentesis in the past. He has had a paracentesis since having his current back pain symptoms and reports no change in symptoms from the paracentesis. He and the spouse report that he has not been referred to a spinal specialist. His is also concerned regarding his decreased activity tolerance and shortness of breath which is at his baseline. In addition to his ischemic cardiomyopathy he has a past medical history significant for atrial fibrillation, CAD, hyperlipidemia, diabetes and hypertension. - Related Data Home Medications Medication Instructions Recorded Confirmed Apixaban [Eliquis] 5 mg PO BID 07/17/19 09/06/22 Furosemide [Lasix] 40 mg PO BID 07/17/19 09/06/22 Aspirin [Adult Low Dose Aspirin EC] 81 mg PO DAILY 10/06/21 09/06/22 Rosuvastatin [Crestor] 20 mg PO DAILY 10/06/21 09/06/22 Dapagliflozin Propanediol [Farxiga] 10 mg PO DAILY 09/06/22 09/06/22 Potassium Chloride [Klor-Con 20 20 meq PO DAILY 09/06/22 09/06/22 Packets] carvediloL [Coreg] 3.125 mg PO BID 09/06/22 09/06/22 Previous Rx's Medication Instructions Recorded methocarbamoL [Robaxin-750] 750 mg PO TID #30 tab 09/05/22 traMADol HCL 50 mg PO Q6H PRN 3 Days #12 tab 09/10/22 Allergies Allergy/AdvReac Type Severity Reaction Status Date / Time No Known Allergies Allergy Verified 09/10/22 06:19 Review of Systems ROS Statement: Those systems with pertinent positive or pertinent negative responses have been documented in the HPI. ROS Other: All systems not noted in ROS Statement are negative. Past Medical History Past Medical History: Atrial Fibrillation, Chest Pain / Angina, Diabetes Mellitus, Hyperlipidemia, Hypertension, Myocardial Infarction (ID) Additional Past Medical History / Comment(s): CHF, back pain Last Myocardial Infarction Date:: 2012 History of Any Multi-Drug Resistant Organisms: None Reported Past Surgical History: Appendectomy, Cholecystectomy, Coronary Bypass/CABG, Pacemaker Additional Past Surgical History / Comment(s): CABG in 2012. Past Anesthesia/Blood Transfusion Reactions: No Reported Reaction Type of Cardiac Device: AICD Device Placement Date:: 02/23/22 Past Psychological History: No Psychological Hx Reported Smoking Status: Never smoker Past Alcohol Use History: Occasional Past Drug Use History: None Reported - Past Family History Brother(s) Family Medical History: Cancer Sister(s) Family Medical History: Cancer General Exam - General Exam Comments Initial Comments: GENERAL: No acute distress, well developed, well nourished. HEENT: Normocephalic, atraumatic. Pupils equal, round, reactive to light. Moist mucous membranes. LUNGS: No respiratory distress or use of accessory muscles. HEART: Regular rate. ABDOMEN: Moderate ascites. Nontender, no guarding or rebound tenderness. BACK: Normal inspection. No CVA tenderness. No vertebral tenderness. No paraspinal spasms noted. EXTREMITIES: Bilateral lower extremity edema +1, sensation intact. Strength equal and strong bilaterally to lower extremities. NEUROLOGIC: Alert & oriented x 3. CN II-XII grossly intact. PSYCHIATRIC: Normal affect and behavior. DERMATOLOGIC: Discolored lower extremities. Skin intact. Limitations: no limitations Course Vital Signs 09/10/22 09/10/22 09/10/22 06:19 06:46 08:10 Temperature 97.3 F L Pulse Rate 78 69 Pulse Rate [ 67 Ratings Analyst ] Respiratory 18 18 Rate Blood Pressure 140/91 128/91 O2 Sat by Pulse 100 100 Oximetry Medical Decision Making - Medical Decision Making Was pt. sent in by a medical professional or institution (, PA, SAFETY TEACHER, urgent care, hospital, or jail...) When possible be specific @ -No Did you speak to anyone other than the patient for history (EMS, parent, family, police, friend...)? What history was obtained from this source @ -Yes, spoke with nurse regarding further information of history of present illness along with past medical history and current medications. Did you review nursing and triage notes (agree or disagree)? Why? @ -I reviewed and agree with nursing and triage notes Were old charts reviewed (outside hosp., previous admission, EMS record, old EKG, old radiological studies, urgent care reports/EKG's, jail records)? Report findings @ -Yes, I reviewed ultrasound abdomen and bladder completed 04/08/2022, CT thorax aorta completed 11/17/2021 along with most recent primary care provider history and physical and most recent cardiology consult on file both from 2019. Differential Diagnosis (chest pain, altered mental status, abdominal pain women, abdominal pain men, vaginal bleeding, weakness, fever, dyspnea, syncope, headache, dizziness, GI bleed, back pain, seizure, CVA, palpatations, mental health, musculoskeletal)? @ -Differential Back Pain: Strain, zoster, cauda equina syndrome, epidural abscess, vertebral osteomyelitis, discitis, fracture, subluxation, disc herniation, DJD, spinal stenosis, dissection, AAA, pancreatitis, peptic ulcer disease, pyelonephritis, kidney stone, this is not meant to be an all-inclusive list. EKG interpreted by me (3pts min.). @ -None done X-rays interpreted by me (1pt min.). @ -X-ray lumbar spine: Good vertebral alignment without any evidence of fracture or subluxation. Multiple osteophytes noted. CT interpreted by me (1pt min.). @ -None done U/S interpreted by me (1pt. min.). @ -None done What testing was considered but not performed or refused? (CT, X-rays, U/S, labs)? Why? @ -None What meds were considered but not given or refused? Why? @ -NSAIDs considered but deferred due to anticoagulation, muscle relaxer considered but deferred due to currently taking oral muscle relaxer without improvement in symptoms. Did you discuss the management of the patient with other professionals (professionals i.e. , PA, SAFETY TEACHER, lab, RT, psych nurse, certified social workers in health care, tape weaver, teacher, investment officer, correctional casework specialist)? Give summary @ -No Was smoking cessation discussed for >3mins.? @ -No Was critical care preformed (if so, how long)? @ -No Were there social determinants of health that impacted care today? How? (Homelessness, low income, unemployed, alcoholism, drug addiction, transportation, low edu. Level, literacy, decrease access to med. care, [facility], rehab)? @ -No Was there de-escalation of care discussed even if they declined (Discuss DNR or withdrawal of care, Hospice)? DNR status @ -No What co-morbidities impacted this encounter? (DM, HTN, Smoking, COPD, CAD, Ca ncer, CVA, ARF, Chemo, Hep., AIDS, mental health diagnosis, sleep apnea, morbid obesity)? @ -None Was patient admitted / discharged? Hospital course, mention meds given and route, prescriptions, significant lab abnormalities, going to OR and other pertinent info. @ -71-year-old male presenting to the emergency room with complaints of back pain ongoing for 2 months without any known trauma. Pain is unrelieved with muscle relaxer. He is utilizing Tylenol at home for pain with no response as well. No no radiculopathy, weakness or retroflex symptoms are cardiac dacia. Due to no previous x-ray of lumbar spine at the beginning of back pain will obtain lumbar x-ray though in the lack of trauma low probability for osseous pathology. Will give morphine for pain. Not a candidate for NSAIDs due to Eliquis. Currently on oral muscle relaxants will defer further muscle relaxer at this time. Lumbar x-ray without any acute abnormalities, well aligned without fracture or subluxation. Osteophytes noted. Pain better but not relieved by morphine. No indication for further diagnostic testing or laboratory studies at this time. Long discussion with patient and spouse regarding back pain etiology and treatment course. Encouraged follow-up with primary care provider and lumbar specialist for further evaluation and treatment. Expectations of pain reduction advised. Discussed low lower lumbar stretches and exercises. Reinforced encouragement of adherents to congestive heart failure regiment to prevent worsening ascites and lumbar back strain. Questions and concerns answered. Return parameters to the emergency room discussed. Will discharge home in stable condition with tramadol prescription to utilize in addition to [id number] Tylenol and previously prescribed Robaxin for lumbar back pain advising follow-up with primary care provider and/or the media center specialist. Undiagnosed new problem with uncertain prognosis? @ -No Drug Therapy requiring intensive monitoring for toxicity (Heparin, Nitro, Insulin, Cardizem)? @ -No Were any procedures done? @ -No Diagnosis/symptom? @ -Low back pain Acute, or Chronic, or Acute on Chronic? @ -Acute (2 month duration) Uncomplicated (without systemic symptoms) or Complicated (systemic symptoms)? @ -Uncomplicated Side effects of treatment? @ -No Exacerbation, Progression, or Severe Exacerbation? @ -No Poses a threat to life or bodily function? How? (Chest pain, USA, ID, pneumonia, PE, COPD, DKA, ARF, appy, cholecystitis, CVA, Diverticulitis, Homicidal, Suicidal, threat to staff... and all critical care pts) @ -No Case discussed with Dr. Denise. - Radiology Data Radiology results: report reviewed, image reviewed Disposition Clinical Impression: Low back pain Disposition: HOME SELF-CARE Condition: Stable Instructions (If sedation given, give patient instructions): Acute Low Back Pain (ED), Lower Back Exercises (ED) Additional Instructions: Please utilize tramadol prescription for pain as needed along with previous prescription of muscle relaxer. Do not take tramadol and muscle relaxer at the same time. Do not drive or operate machinery into the innominate medications will effective. Low back exercises as tolerated encouraged. Avoid bedrest and heavy lifting. Continue to follow up with cardiology regarding need for paracentesis. Continue to monitor salt and fluid intake to reduce abdominal fluid levels. Please follow-up with your primary care provider and plant technical specialist for further evaluation and treatment of low back pain. Please return to the emergency room if symptoms worsen or any other concerns. Prescriptions: traMADol HCL 50 mg PO Q6H PRN 3 Days #12 tab PRN Reason: Pain Is patient prescribed a controlled substance at d/c from ED?: Yes When asked, does pt state using other controlled substances?: No If prescribed controlled substance>3 days was MAPS reviewed?: Prescribed <3 Days Referrals: Reji Alston MD [Primary Care Provider] - 1-2 days Diana Andrews DO [Doctor of Osteopathic Medicine] - 1-2 days Time of Disposition: 08:03
--- NOTE | 2022-09-10 07:38 | XR ---
EXAMINATION TYPE: XR lumbosacral spine min 4V DATE OF EXAM: 09/10/2022 CLINICAL HISTORY: Chronic low back pain TECHNIQUE: Frontal, lateral, and oblique images of the lumbar spine are obtained. COMPARISON: CT November 17, 2021 FINDINGS: There are 5 lumbar type vertebral bodies redemonstrated. The lumbar spine shows stable an d satisfactory alignment without evidence of acute fracture or dislocation. Vertebral body heights an d disk space heights remain within normal limits. The oblique images appear within normal limits. Multilevel Large anterior osteophytes are redemonstrated. There is [id number] overlying arteria l vascular calcification redemonstrated. IMPRESSION: As above.
[2022-09-10 08:14] VITALS: PULSE 69
[2022-09-10 08:43] VITALS: BP 135/96; TEMP 98
== END 2022-09-10 08:43 | disposition home or self-care (01) ==
LOC: EC 06:10
DX: M54.50 Low back pain, unspecified (principal); I10 Essential (primary) hypertension; E11.9 Type 2 diabetes mellitus without complications; E78.5 Hyperlipidemia, unspecified; I25.10 Atherosclerotic heart disease of native coronary artery without angina pectoris; I25.2 Old myocardial infarction; I48.91 Unspecified atrial fibrillation; Z79.82 Long term (current) use of aspirin; Z79.84 Long term (current) use of oral hypoglycemic drugs; Z79.899 Other long term (current) drug therapy
CPT/HCPCS: 99284; 72110; 96374; J2270; 93005

== ENCOUNTER 2022-09-14 12:18 | Day surgery (SDC) | payer MEDICARE ==
[2022-09-14 12:58] LABS: Mean Platelet Volume 8.1; Platelet Count 224 k/uL (150-450)
[2022-09-14 13:02] LABS: INR 1.3 (<1.2)
[2022-09-14] MEDS: ALBUMIN HUMAN 25% 50 ML in EMPTY BAG 1 BAG IVPB SCH ×4 (14:16→15:50)
[2022-09-14 15:52] VITALS: BP 129/80; PULSE 71; RESP 15; TEMP 98
--- NOTE | 2022-09-14 17:45 | US ---
EXAMINATION TYPE: US paracentesis abd w/image DATE OF EXAM: 09/14/2022 CLINICAL HISTORY: 71-year-old male I50.20 UNSPECIFIED SYSTOLIC (CONGESTIVE) HEART RANJIT, here for briana daniel therapeutic paracentesis The procedure was discussed with the patient. The risks, complications, benefits, and alternatives we re discussed and any questions were answered. Informed consent was obtained. The patient was placed s upine on the ultrasound table and prepped and draped in the usual sterile fashion. All elements of maximal barrier technique were utilized. Ultrasound was utilized to determine the precise skin entry site along the right lower quadrant. Utilizing trocar technique and a 6 Polish safety centesis catheter, access into the right lower quadr ant ascites collection was obtained. 7.5 L of clear, straw-colored fluid was aspirated without diffic ulty. The catheter was removed, hemostasis obtained, and a dressing placed. The patient was stable throughout the procedure and remained stable upon discharge from Department of Radiology. IMPRESSION: Successful therapeutic paracentesis under ultrasound guidance. 7.5 L of fluid removed.
== END 2022-09-14 15:40 | disposition home or self-care (01) ==
LOC: RADPROMAIN 12:18
PROVIDERS: ATTEND Family Medicine
DX: R18.8 Other ascites (principal); I13.0 Hypertensive heart and chronic kidney disease with heart failure and stage 1 through stage 4 chronic kidney disease, or unspecified chronic kidney disease; I50.43 Acute on chronic combined systolic (congestive) and diastolic (congestive) heart failure; N18.9 Chronic kidney disease, unspecified; E11.22 Type 2 diabetes mellitus with diabetic chronic kidney disease; I48.91 Unspecified atrial fibrillation; I42.9 Cardiomyopathy, unspecified; I25.10 Atherosclerotic heart disease of native coronary artery without angina pectoris; E78.5 Hyperlipidemia, unspecified; F10.20 Alcohol dependence, uncomplicated; Z95.1 Presence of aortocoronary bypass graft; Z79.01 Long term (current) use of anticoagulants; Z79.84 Long term (current) use of oral hypoglycemic drugs; Z79.899 Other long term (current) drug therapy
CPT/HCPCS: 82565; 82947; 85049; 85610; 36415; 49083; P9047

== ENCOUNTER 2022-10-13 11:59 | Day surgery (SDC) | payer MEDICARE ==
[2022-10-13 12:57] LABS: Platelet Count 235 k/uL (150-450)
[2022-10-13 13:08] LABS: African American GFR (CKD) 57 (>60 ml/min/1.73 sqM); Glucose 130 mg/dL (74-99); Non-African American GFR(CKD) 49 (>60 ml/min/1.73 sqM)
[2022-10-13 13:22] LABS: INR 1.4 (<1.2)
[2022-10-13 13:23] VITALS: RESP 16; TEMP 97.5
[2022-10-13] MEDS: ALBUMIN HUMAN 25% 50 ML in EMPTY BAG 1 BAG IVPB SCH ×4 (13:33→15:06)
--- NOTE | 2022-10-13 14:53 | US ---
Ultrasound-guided paracentesis. DATE OF EXAM: 10/13/2022 CLINICAL HISTORY: Ascites The procedure was discussed with the patient. The risks, complications, benefits, and alternatives we re discussed and any questions were answered. Informed consent was obtained. The patient was placed s upine on the ultrasound table and prepped and draped in the usual sterile fashion. All elements of maximal barrier technique were utilized. Under ultrasound guidance, access into the right lower quadrant was obtained, via the paracentesis catheter system and direct ultrasound guidanc e. Approximately 7 liters of straw-colored fluid was removed. The patient was stable throughout the proc edure and remained stable upon discharge from Department of Radiology. IMPRESSION: Successful paracentesis under ultrasound guidance.
[2022-10-13 15:13] VITALS: BP 129/81; PULSE 70
== END 2022-10-13 15:00 | disposition home or self-care (01) ==
LOC: RADPROMAIN 11:59
PROVIDERS: ATTEND Family Medicine
DX: R18.8 Other ascites (principal)
CPT/HCPCS: 82565; 82947; 85049; 85610; 36415; 49083; P9047

== ENCOUNTER 2022-12-08 12:19 | Day surgery (SDC) | payer MEDICARE ==
[2022-12-08 13:17] VITALS: RESP 16
[2022-12-08 13:25] LABS: Mean Platelet Volume 7.9; Platelet Count 187 k/uL (150-450)
[2022-12-08 13:30] LABS: INR 1.4 (<1.2); Prothrombin Time 14.4 sec (9.0-12.0)
[2022-12-08 13:43] LABS: African American GFR (CKD) 55 (>60 ml/min/1.73 sqM); Glucose 122 mg/dL (74-99); Non-African American GFR(CKD) 47 (>60 ml/min/1.73 sqM)
[2022-12-08] MEDS: ALBUMIN HUMAN 25% 50 ML in EMPTY BAG 1 BAG IVPB SCH ×4 (14:10→15:01)
[2022-12-08 14:13] VITALS: PULSE 69
[2022-12-08 15:01] VITALS: BP 143/92
--- NOTE | 2022-12-08 15:24 | US ---
Ultrasound-guided paracentesis. DATE OF EXAM: 12/08/2022 CLINICAL HISTORY: Ascites The procedure was discussed with the patient. The risks, complications, benefits, and alternatives we re discussed and any questions were answered. Informed consent was obtained. The patient was placed s upine on the ultrasound table and prepped and draped in the usual sterile fashion. All elements of maximal barrier technique were utilized. Under ultrasound guidance, access into the right lower quadrant was obtained, via the paracentesis catheter system and direct ultrasound guidanc e. Approximately 6.5 liters of straw-colored fluid was removed. The patient was stable throughout the pr ocedure and remained stable upon discharge from Department of Radiology. IMPRESSION: Successful paracentesis under ultrasound guidance.
== END 2022-12-08 15:15 | disposition home or self-care (01) ==
LOC: RADPROMAIN 12:19
PROVIDERS: ATTEND Family Medicine
DX: R18.8 Other ascites (principal)
CPT/HCPCS: 82565; 82947; 85049; 85610; 36415; 49083; P9047

== ENCOUNTER 2022-12-11 16:48 | Inpatient (IN) | payer MEDICARE ==
[2022-12-11] MEDS ORDERED: ONDANSETRON 4 MG/2 ML VIAL IVP STA (17:08)
[2022-12-11] MEDS ORDERED: PANTOPRAZOLE 40 MG/10 ML VIAL IVP STA (17:08)
[2022-12-11] MEDS ORDERED: SODIUM CHLORIDE 0.9% 1,000 ML IV STA (17:08)
[2022-12-11] MEDS ORDERED: cefTRIAXone IN SWFI 1,000 MG/10 ML SYRINGE IVP STA (17:09)
--- NOTE | 2022-12-11 17:10 | ED ---
General Adult HPI - General Chief complaint: GI Bleed Stated complaint: Vomiting/Diarrhea w/blood,congestive heart failure Source: patient Mode of arrival: wheelchair Limitations: no limitations - History of Present Illness Initial comments: Cipriano is a 72yo M with advanced heart failure with recurrent ascites requiring paracentesis, most recent paracentesis was earlier this week. Patient presents the ER today with complaint of nausea vomiting and diarrhea throughout the day today. Patient reports that he's had about 10 episodes of bloody emesis and 10 episodes of diarrhea with bright red blood. Patient is on Eliquis daily. Patient's notes that he seems to have exertional dyspnea however he denies any chest pain palpitations shortness of breath. He reports he feels okay upon arrival in the ER. - Related Data Home Medications Medication Instructions Recorded Confirmed Apixaban [Eliquis] 5 mg PO BID 07/17/19 12/11/22 Rosuvastatin [Crestor] 20 mg PO DAILY 10/06/21 12/11/22 Dapagliflozin Propanediol [Farxiga] 10 mg PO DAILY 09/06/22 12/11/22 carvediloL [Coreg] 3.125 mg PO BID 09/06/22 12/11/22 Furosemide [Lasix] 40 mg PO BID 12/11/22 12/11/22 Potassium Chloride [Klor-Con M20] 20 meq PO DAILY 12/11/22 12/11/22 Previous Rx's Medication Instructions Recorded traMADol HCL 50 mg PO Q6H PRN 3 Days #12 tab 09/10/22 Allergies Allergy/AdvReac Type Severity Reaction Status Date / Time No Known Allergies Allergy Verified 12/11/22 18:10 Review of Systems ROS Statement: Those systems with pertinent positive or pertinent negative responses have been documented in the HPI. ROS Other: All systems not noted in ROS Statement are negative. Past Medical History Past Medical History: Atrial Fibrillation, Chest Pain / Angina, Heart Failure, Diabetes Mellitus, Hyperlipidemia, Hypertension, Myocardial Infarction ([place]) Additional Past Medical History / Comment(s): CHF, back pain Last Myocardial Infarction Date:: 2012 History of Any Multi-Drug Resistant Organisms: None Reported Past Surgical History: Appendectomy, Cholecystectomy, Coronary Bypass/CABG, Pacemaker Additional Past Surgical History / Comment(s): CABG in 2013. multiple paracentesis Past Anesthesia/Blood Transfusion Reactions: No Reported Reaction Type of Cardiac Device: AICD Device Placement Date:: 02/23/22 Past Psychological History: No Psychological Hx Reported Smoking Status: Never smoker Past Alcohol Use History: Occasional Past Drug Use History: None Reported - Past Family History Brother(s) Family Medical History: Cancer Sister(s) Family Medical History: Cancer General Exam - General Exam Comments Initial Comments: Physical Exam GENERAL: Chronically ill appearing HENT: Normocephalic, Atraumatic. EYES: PERRL, EOMI PULMONARY: Unlabored respirations. CARDIOVASCULAR: RRR Warm and well perfused extremities ABDOMEN: Soft, non-tender to deep palpation SKIN: No petechia : Deferred NEUROLOGIC: At baseline, poor historian MUSCULOSKELETAL: Moving all extremities with no apparent injury PSYCHIATRIC: No SI/HI Limitations: no limitations Course Vital Signs 12/11/22 12/11/22 12/11/22 16:54 17:16 18:24 Temperature 97.6 F Pulse Rate 74 91 70 Respiratory 18 16 20 Rate Blood Pressure 156/101 139/98 133/85 O2 Sat by Pulse 98 99 98 Oximetry 12/11/22 12/11/22 12/11/22 19:16 21:35 22:38 Temperature Pulse Rate 73 70 71 Respiratory 19 17 17 Rate Blood Pressure 131/74 117/66 104/61 O2 Sat by Pulse 98 97 96 Oximetry Medical Decision Making - Medical Decision Making Was pt. sent in by a medical professional or institution ([facility] [place], [employer]ER, urgent care, hospital, or fdc...) When possible be specific @ -No Did you speak to anyone other than the patient for history (EMS, parent, family, police, friend...)? What history was obtained from this source @ - provided history as patient is a poor historian Did you review nursing and triage notes (agree or disagree)? Why? @ -I reviewed and agree with nursing and triage notes Were old charts reviewed (outside hosp., previous admission, EMS record, old EKG, old radiological studies, urgent care reports/EKG's, fdc records)? Report findings @ -Terrie admissions were reviewed, previous labs were reviewed Differential Diagnosis (chest pain, altered mental status, abdominal pain women, abdominal pain men, vaginal bleeding, weakness, fever, dyspnea, syncope, headache, dizziness, GI bleed, back pain, seizure, CVA, palpatations, mental health, musculoskeletal)? @ -Differential GI Bleed: Esophageal varices, aortoenteric fistula, Ya-Parker, gastritis, peptic ulcer disease, diverticulosis, inflammatory bowel disease, hemorrhoids, fissure, colitis, malignancy, Meckels diverticulum, this is not meant to be an all- inclusive list. EKG interpreted by me (3pts min.). @ -As above X-rays interpreted by me (1pt min.). @ -None done CT interpreted by me (1pt min.). @ - U/S interpreted by me (1pt. min.). @ -None done What testing was considered but not performed or refused? (CT, X-rays, U/S, labs)? Why? @ -None What meds were considered but not given or refused? Why? @ -None Did you discuss the management of the patient with other professionals (professionals i.e. , PA, METAL BUILDING ASSEMBLER, lab, RT, psych nurse, social work administrator, upholstery auto trimmer, teacher, quarantine officer, manager case)? Give summary @ -Discussed with admitting physician Dr. Black Was smoking cessation discussed for >3mins.? @ -No Was critical care preformed (if so, how long)? @ -No Were there social determinants of health that impacted care today? How? (Home lessness, low income, unemployed, alcoholism, drug addiction, transportation, low edu. Level, literacy, decrease access to med. care, care home, rehab)? @ -No Was there de-escalation of care discussed even if they declined (Discuss DNR or withdrawal of care, Hospice)? DNR status @ -No What co-morbidities impacted this encounter? (DM, HTN, Smoking, COPD, CAD, Cancer, CVA, ARF, Chemo, Hep., AIDS, mental health diagnosis, sleep apnea, morbid obesity)? @ -CHF Was patient admitted / discharged? Hospital course, mention meds given and route, prescriptions, significant lab abnormalities, going to OR and other pertinent info. @ -hospital course Undiagnosed new problem with uncertain prognosis? @ -No Drug Therapy requiring intensive monitoring for toxicity (Heparin, Nitro, Insulin, Cardizem)? @ -No Were any procedures done? @ -No Diagnosis/symptom? @ Colitis with GI bleeding Acute, or Chronic, or Acute on Chronic? @ -Acute Uncomplicated (without systemic symptoms) or Complicated (systemic symptoms)? @ -Complicated Side effects of treatment? @ -No Exacerbation, Progression, or Severe Exacerbation? @ -No Poses a threat to life or bodily function? How? (Chest pain, USA, OR, pneumonia, PE, COPD, DKA, ARF, appy, cholecystitis, CVA, Diverticulitis, Homicidal, Suicidal, threat to staff... and all critical care pts) @ -Yes, GI bleeding in a patient with anticoagulation. In addition colitis and patient with ascites high risk for spontaneous bacterial peritonitis sepsis and . - Lab Data Result diagrams: 12/11/22 17:08 12/11/22 17:08 Lab Results 12/11/22 12/11/22 12/11/22 Range/Units 17:08 17:08 17:08 WBC 21.1 H (3.8-10.6) k/uL RBC 4.78 (4.30-5.90) m/uL Hgb 11.5 L (13.0-17.5) gm/dL Hct 37.4 L (39.0-53.0) % MCV 78.2 L (80.0-100.0) fL MCH 24.1 L (25.0-35.0) pg MCHC 30.8 L (31.0-37.0) g/dL RDW 19.4 H (11.5-15.5) % Plt Count 270 (150-450) k/uL MPV 8.2 Neutrophils % 93 % Lymphocytes % 2 % Monocytes % 5 % Eosinophils % 0 % Basophils % 0 % Neutrophils # 19.6 H (1.3-7.7) k/uL Lymphocytes # 0.4 L (1.0-4.8) k/uL Monocytes # 1.0 (0-1.0) k/uL Eosinophils # 0.1 (0-0.7) k/uL Basophils # 0.0 (0-0.2) k/uL Hypochromasia Marked Anisocytosis Slight Microcytosis Slight APTT 26.4 (22.0-30.0) sec Sodium 138 (137-145) mmol/L Potassium 5.3 H (3.5-5.1) mmol/L Chloride 104 (98-107) mmol/L Carbon Dioxide 22 (22-30) mmol/L Anion Gap 12 mmol/L BUN 18 (9-20) mg/dL Creatinine 1.44 H (0.66-1.25) mg/dL Est GFR (CKD-EPI)AfAm 56 (>60 ml/min/1.73 sqM) Est GFR (CKD-EPI)NonAf 48 (>60 ml/min/1.73 sqM) Glucose 142 H (74-99) mg/dL Lactic Ac Sepsis Rflx Plasma Lactic Acid Andres (0.7-2.0) mmol/L Calcium 9.4 (8.4-10.2) mg/dL Total Bilirubin 2.4 H (0.2-1.3) mg/dL AST 37 (17-59) U/L ALT 15 (4-49) U/L Alkaline Phosphatase 77 (38-126) U/L Ammonia (<30) umol/L Troponin I (0.000-0.034) ng/mL Total Protein 7.4 (6.3-8.2) g/dL Albumin 3.9 (3.5-5.0) g/dL Blood Type Blood Type Recheck Bld Type Recheck Status Antibody Screen Spec Expiration Date 12/11/22 12/11/22 12/11/22 Range/Units 17:08 17:08 17:10 WBC (3.8-10.6) k/uL RBC (4.30-5.90) m/uL Hgb (13.0-17.5) gm/dL Hct (39.0-53.0) % MCV (80.0-100.0) fL MCH (25.0-35.0) pg MCHC (31.0-37.0) g/dL RDW (11.5-15.5) % Plt Count (150-450) k/uL MPV Neutrophils % % Lymphocytes % % Monocytes % % Eosinophils % % Basophils % % Neutrophils # (1.3-7.7) k/uL Lymphocytes # (1.0-4.8) k/uL Monocytes # (0-1.0) k/uL Eosinophils # (0-0.7) k/uL Basophils # (0-0.2) k/uL Hypochromasia Anisocytosis Microcytosis APTT (22.0-30.0) sec Sodium (137-145) mmol/L Potassium (3.5-5.1) mmol/L Chloride (98-107) mmol/L Carbon Dioxide (22-30) mmol/L Anion Gap mmol/L BUN (9-20) mg/dL Creatinine (0.66-1.25) mg/dL Est GFR (CKD-EPI)AfAm (>60 ml/min/1.73 sqM) Est GFR (CKD-EPI)NonAf (>60 ml/min/1.73 sqM) Glucose (74-99) mg/dL Lactic Ac Sepsis Rflx Plasma Lactic Acid Andres 3.5 H* (0.7-2.0) mmol/L Calcium (8.4-10.2) mg/dL Total Bilirubin (0.2-1.3) mg/dL AST (17-59) U/L ALT (4-49) U/L Alkaline Phosphatase (38-126) U/L Ammonia <9 (<30) umol/L Troponin I 0.058 H* (0.000-0.034) ng/mL Total Protein (6.3-8.2) g/dL Albumin (3.5-5.0) g/dL Blood Type A Positive Blood Type Recheck A Pos Bld Type Recheck Status No Antibody Screen NEGATIVE Spec Expiration Date 12/14/2022 - 230912/11/22 Range/Units 18:31 WBC (3.8-10.6) k/uL RBC (4.30-5.90) m/uL Hgb (13.0-17.5) gm/dL Hct (39.0-53.0) % MCV (80.0-100.0) fL MCH (25.0-35.0) pg MCHC (31.0-37.0) g/dL RDW (11.5-15.5) % Plt Count (150-450) k/uL MPV Neutrophils % % Lymphocytes % % Monocytes % % Eosinophils % % Basophils % % Neutrophils # (1.3-7.7) k/uL Lymphocytes # (1.0-4.8) k/uL Monocytes # (0-1.0) k/uL Eosinophils # (0-0.7) k/uL Basophils # (0-0.2) k/uL Hypochromasia Anisocytosis Microcytosis APTT (22.0-30.0) sec Sodium (137-145) mmol/L Potassium (3.5-5.1) mmol/L Chloride (98-107) mmol/L Carbon Dioxide (22-30) mmol/L Anion Gap mmol/L BUN (9-20) mg/dL Creatinine (0.66-1.25) mg/dL Est GFR (CKD-EPI)AfAm (>60 ml/min/1.73 sqM) Est GFR (CKD-EPI)NonAf (>60 ml/min/1.73 sqM) Glucose (74-99) mg/dL Lactic Ac Sepsis Rflx Y Plasma Lactic Acid Andres (0.7-2.0) mmol/L Calcium (8.4-10.2) mg/dL Total Bilirubin (0.2-1.3) mg/dL AST (17-59) U/L ALT (4-49) U/L Alkaline Phosphatase (38-126) U/L Ammonia (<30) umol/L Troponin I (0.000-0.034) ng/mL Total Protein (6.3-8.2) g/dL Albumin (3.5-5.0) g/dL Blood Type Blood Type Recheck Bld Type Recheck Status Antibody Screen Spec Expiration Date Disposition Clinical Impression: Colitis, Hematemesis, BRBPR (bright red blood per rectum) Disposition: ADMITTED IP TO THIS HOSP Condition: Serious Is patient prescribed a controlled substance at d/c from ED?: No
[2022-12-11 17:44] LABS: Anisocytosis Slight; Basophils % (A) 0 %; Eosinophils # (A) 0.1 k/uL (0-0.7); Eosinophils % (A) 0 %; HCT 37.4 % (39.0-53.0); HGB 11.5 gm/dL (13.0-17.5); Hypochromasia Marked; Lymphocytes # (A) 0.4 k/uL (1.0-4.8); Lymphocytes % (A) 2 %; MCH 24.1 pg (25.0-35.0); MCHC 30.8 g/dL (31.0-37.0); MCV 78.2 fL (80.0-100.0); Mean Platelet Volume 8.2; Microcytosis Slight; Monocytes % (A) 5 %; Neutrophils # (A) 19.6 k/uL (1.3-7.7); Neutrophils % (A) 93 %; Platelet Count 270 k/uL (150-450); RBC 4.78 m/uL (4.30-5.90); RDW 19.4 % (11.5-15.5); WBC 21.1 k/uL (3.8-10.6)
[2022-12-11 18:07] LABS: ALT 15 U/L (4-49); AST 37 U/L (17-59); African American GFR (CKD) 56 (>60 ml/min/1.73 sqM); Albumin 3.9 g/dL (3.5-5.0); Alkaline Phosphatase 77 U/L (38-126); Anion Gap 12 mmol/L; Blood Urea Nitrogen 18 mg/dL (9-20); Calcium 9.4 mg/dL (8.4-10.2); Carbon Dioxide 22 mmol/L (22-30); Chloride 104 mmol/L (98-107); Glucose 142 mg/dL (74-99); Non-African American GFR(CKD) 48 (>60 ml/min/1.73 sqM); Sodium 138 mmol/L (137-145); Total Bilirubin 2.4 mg/dL (0.2-1.3); Total Protein 7.4 g/dL (6.3-8.2)
[2022-12-11 18:10] LABS: Potassium 5.3 mmol/L (3.5-5.1)
[2022-12-11 18:31] LABS: Lactic Acid, Venous 3.5 mmol/L (0.7-2.0)
--- NOTE | 2022-12-11 19:25 | CT ---
EXAMINATION TYPE: CT abdomen pelvis w con CT DLP: 1001.7 mGycm, Automated exposure control for dose reduction was used. DATE OF EXAM: 12/11/2022 7:17 PM COMPARISON: 11/17/2021 CLINICAL INDICATION:Male, 72 years old with history of sepsis; abdominal pain, nausea, vomiting TECHNIQUE: Axial CT of the abdomen and pelvis. Sagittal and coronal reformats were created on a [employer] workstation. Contrast used:80c mL of Isovue 300 with IV Contrast, (none if empty) Oral contrast used: without Oral Contrast (none if empty) FINDINGS: LOWER CHEST: The heart is enlarged for size. Cardiac conduction leads are present. Severe atheroscler otic disease of the coronary arteries. Trace right small left pleural effusion. ABDOMEN LIVER: Unremarkable GALLBLADDER AND BILE DUCTS: The gallbladder surgically absent. PANCREAS: Unremarkable. SPLEEN: Unremarkable. ADRENAL GLANDS: Unremarkable. KIDNEYS AND URETERS: No evidence of hydronephrosis or renal calculus. The ureters are unremarkable. PELVIS BLADDER: Unremarkable REPRODUCTIVE: Unremarkable. ABDOMEN & PELVIS STOMACH AND BOWEL: No evidence of bowel obstruction. Circumferential thickening of the rectum and sig moid colon measuring up to 7 mm. PERITONEUM/RETROPERITONEUM: No evidence of pneumoperitoneum. Small to moderate abdominal ascites VASCULATURE: No evidence of aortic aneurysm. MUSCULOSKELETAL: No acute osseous abnormalities. Moderate disc degeneration changes are present throu ghout the thoracolumbar spine. LYMPH NODES: No gross evidence for lymphadenopathy. SOFT TISSUE/ABDOMINAL WALL: Unremarkable IMPRESSION: 1. Circumferential wall thickening of the sigmoid colon rectum criteria for colitis. 2. Small to moderate abdominal free fluid. This may be reactive and secondary to #1. 3. Cardiomegaly with effusions correlate with serum BNP for congestive heart failure.
[2022-12-11] MEDS ORDERED: NALOXONE 0.4 MG/ML 1 ML VIAL IV PRN (20:39)
[2022-12-12 00:12] LABS: Anisocytosis Slight; Basophils % (A) 0 %; Eosinophils % (A) 0 %; Hypochromasia Marked; Lymphocytes # (A) 0.3 k/uL (1.0-4.8); Lymphocytes % (A) 3 %; MCH 24.4 pg (25.0-35.0); MCHC 31.2 g/dL (31.0-37.0); MCV 78.1 fL (80.0-100.0); Mean Platelet Volume 8.1; Microcytosis Slight; Monocytes # (A) 0.6 k/uL (0-1.0); Monocytes % (A) 5 %; Neutrophils # (A) 9.3 k/uL (1.3-7.7); Neutrophils % (A) 90 %; Platelet Count 149 k/uL (150-450); RBC 3.97 m/uL (4.30-5.90); RDW 19.4 % (11.5-15.5); WBC 10.3 k/uL (3.8-10.6)
[2022-12-12 01:13] LABS: HGB 9.7 gm/dL (13.0-17.5)
--- NOTE | 2022-12-12 09:19 | P.HPIM ---
History of Present Illness H&P Date: 12/11/22 Chief Complaint: Vomiting/bloody diarrhea 72yo M with advanced heart failure with recurrent ascites requiring paracentesis, most recent paracentesis was earlier this week, atrial fibrillation, hypertension, hyperlipidemia, diabetes mellitus, CHF, presents to the ER today with complaint of nausea vomiting and diarrhea throughout the day today. Patient reports that he's had about 10 episodes of bloody emesis and 10 episodes of diarrhea with bright red blood. Patient is on Eliquis daily. Patient's notes that he seems to have exertional dyspnea however he denies any chest pain palpitations shortness of breath. He reports he feels okay upon arrival in the ER. Blood work completed in ED reveals a WBC of 21.1, hemoglobin of 11.5 and platelet count of 270, sodium of 138, potassium 5.3, BUN/creatinine of 18/1.44, lactic acid level of 3.5 and troponin mildly elevated at 0.058 CT of the abdomen and pelvis reveals circumferential wall thickening of the sigmoid colon and rectum significant for colitis; [id number] abdominal free fluid; cardiomegaly with effusions Review of Systems REVIEW OF SYSTEMS: CONSTITUTIONAL: No fever, no malaise, no fatigue. HEENT: No recent visual problems or hearing problems. Denied any sore throat. CARDIOVASCULAR: No chest pain, orthopnea, PND, no palpitations, no syncope. PULMONARY: shortness of breath, no cough, no hemoptysis. GASTROINTESTINAL: Bloody diarrhea, no nausea, hematemesis, no abdominal pain. NEUROLOGICAL: No headaches, no weakness, no numbness. HEMATOLOGICAL: Denies any bleeding or petechiae. GENITOURINARY: Denies any burning micturition, frequency, or urgency. MUSCULOSKELETAL/RHEUMATOLOGICAL: Denies any joint pain, swelling, or any muscle pain. ENDOCRINE: Denies any polyuria or polydipsia. The rest of the 14-point review of systems is negative. Past Medical History Past Medical History: Atrial Fibrillation, Chest Pain / Angina, Heart Failure, Diabetes Mellitus, Hyperlipidemia, Hypertension, Myocardial Infarction ([place]) Additional Past Medical History / Comment(s): CHF, back pain Last Myocardial Infarction Date:: 2012 History of Any Multi-Drug Resistant Organisms: None Reported Past Surgical History: Appendectomy, Cholecystectomy, Coronary Bypass/CABG, Pacemaker Additional Past Surgical History / Comment(s): CABG in 2013. multiple paracentesis Past Anesthesia/Blood Transfusion Reactions: No Reported Reaction Type of Cardiac Device: AICD Device Placement Date:: 02/23/22 Past Psychological History: No Psychological Hx Reported Smoking Status: Never smoker Past Alcohol Use History: Occasional Past Drug Use History: None Reported - Past Family History Brother(s) Family Medical History: Cancer Sister(s) Family Medical History: Cancer Medications and Allergies Home Medications Medication Instructions Recorded Confirmed Type Apixaban [Eliquis] 5 mg PO BID 07/17/19 12/11/22 History Rosuvastatin [Crestor] 20 mg PO DAILY 10/06/21 12/11/22 History Dapagliflozin Propanediol [Farxiga] 10 mg PO DAILY 09/06/22 12/11/22 History carvediloL [Coreg] 3.125 mg PO BID 09/06/22 12/11/22 History traMADol HCL 50 mg PO Q6H PRN 3 Days #12 tab 09/10/22 12/11/22 Rx Furosemide [Lasix] 40 mg PO BID 12/11/22 12/11/22 History Potassium Chloride [Klor-Con M20] 20 meq PO DAILY 12/11/22 12/11/22 History Allergies Allergy/AdvReac Type Severity Reaction Status Date / Time No Known Allergies Allergy Verified 12/11/22 18:10 Physical Exam Vitals: Vital Signs Temp Pulse Resp BP Pulse Ox 12/11/22 21:35 70 17 117/66 97 12/11/22 19:16 73 19 131/74 98 12/11/22 18:24 70 20 133/85 98 12/11/22 17:16 91 16 139/98 99 12/11/22 16:54 97.6 F 74 18 156/101 98 Intake and Output 12/11/22 12/11/22 12/11/22 06:59 14:59 22:59 Other: Weight 74.843 kg Results CBC & Chem 7: 12/11/22 23:43 12/11/22 17:08 Labs: Abnormal Lab Results - Last 24 Hours (Table) 12/11/22 12/11/22 12/11/22 Range/Units 17:08 17:08 17:08 WBC 21.1 H (3.8-10.6) k/uL Hgb 11.5 L (13.0-17.5) gm/dL Hct 37.4 L (39.0-53.0) % MCV 78.2 L (80.0-100.0) fL MCH 24.1 L (25.0-35.0) pg MCHC 30.8 L (31.0-37.0) g/dL RDW 19.4 H (11.5-15.5) % Neutrophils # 19.6 H (1.3-7.7) k/uL Lymphocytes # 0.4 L (1.0-4.8) k/uL Potassium 5.3 H (3.5-5.1) mmol/L Creatinine 1.44 H (0.66-1.25) mg/dL Glucose 142 H (74-99) mg/dL Plasma Lactic Acid Andres 3.5 H* (0.7-2.0) mmol/L Total Bilirubin 2.4 H (0.2-1.3) mg/dL Troponin I (0.000-0.034) ng/mL 12/11/22 Range/Units 17:08 WBC (3.8-10.6) k/uL Hgb (13.0-17.5) gm/dL Hct (39.0-53.0) % MCV (80.0-100.0) fL MCH (25.0-35.0) pg MCHC (31.0-37.0) g/dL RDW (11.5-15.5) % Neutrophils # (1.3-7.7) k/uL Lymphocytes # (1.0-4.8) k/uL Potassium (3.5-5.1) mmol/L Creatinine (0.66-1.25) mg/dL Glucose (74-99) mg/dL Plasma Lactic Acid Andres (0.7-2.0) mmol/L Total Bilirubin (0.2-1.3) mg/dL Troponin I 0.058 H* (0.000-0.034) ng/mL Assessment and Plan Assessment: 1. Acute GI bleed; currently on anticoagulation therapy - Patient reports multiple episodes of bloody diarrhea and hematemesis; patient is currently on Eliquis 5 mg twice a day for atrial fibrillation - Blood work completed in ED reveals a hemoglobin above 11; we will monitor H&H closely with plans to reverse anticoagulation if patient continues to have episodes of bloody diarrhea or hematemesis or hemoglobin continues to drop - We will consult general surgery for further GI workup - Start patient on Protonix 40 mg IV every 12 hours; keep patient nothing by mouth; hold Eliquis 2. Ascites with abdominal pain; profound leukocytosis; rule out peritonitis; white blood count elevated at 21.1 with lactic acid of 3.5 upon admission - Patient has been placed on Rocephin 1 g IV daily; we will continue with current antibiotics and monitor closely with CBC, CMP and pro-calcitonin; blood cultures are obtained - Consult ID for further recommendations; patient might need IR for diagnostic/therapeutic paracentesis 3. Acute blood loss anemia; hemoglobin is around 11; we will monitor H&H every 8 hours with plans to transfuse if hemoglobin is less than 7.0; start patient on Protonix 40 mg IV every 12 hours - Plan to reverse anticoagulation versus fresh frozen plasma if hemoglobin drops down profoundly 4. Elevated troponin; likely type II ischemia; we will trend troponin with plans to consult cardiology; recommend 2-D echo 5. Atrial fibrillation; remains rate controlled, patient takes Coreg; anticoagulation therapy has been placed on hold due to GI bleed 6. Hypertension; patient takes Coreg 3.125 mg twice a day and Lasix 40 mg twice a day; we will hold off on antihypertensive therapy given GI bleed and anticipated softer blood pressures; monitor blood pressure closely 7. Hyperlipidemia; Crestor 20 mg daily which will be placed on hold while patient is nothing by mouth DVT prophylaxis; SCDs only given GI bleed CODE STATUS; full code
[2022-12-12] MEDS: PANTOPRAZOLE 40 MG/10 ML VIAL IVP SCH ×2 (09:54→19:55)
--- NOTE | 2022-12-12 13:57 | P.GSCN ---
History of Present Illness Consult date: 12/12/22 Reason for Consult: GI bleed, diarrhea. T History of present illness: This is a 72-year-old male who has significant cardiac history. Patient had an episode of diarrhea with bright red blood and vomiting. Patient does take L Shawn. Patient states his diarrhea is much improved today. He denies any abdominal pain. Past Medical History Past Medical History: Atrial Fibrillation, Chest Pain / Angina, Heart Failure, Diabetes Mellitus, Hyperlipidemia, Hypertension, Myocardial Infarction ([place]) Additional Past Medical History / Comment(s): CHF, back pain Last Myocardial Infarction Date:: 2012 History of Any Multi-Drug Resistant Organisms: None Reported Past Surgical History: Appendectomy, Cholecystectomy, Coronary Bypass/CABG, Pacemaker Additional Past Surgical History / Comment(s): CABG in 2012. multiple paracentesis Past Anesthesia/Blood Transfusion Reactions: No Reported Reaction Type of Cardiac Device: AICD Device Placement Date:: 02/23/22 Past Psychological History: No Psychological Hx Reported Smoking Status: Never smoker Past Alcohol Use History: Occasional Past Drug Use History: None Reported - Past Family History Brother(s) Family Medical History: Cancer Sister(s) Family Medical History: Cancer Medications and Allergies Home Medications Medication Instructions Recorded Confirmed Type Apixaban [Eliquis] 5 mg PO BID 07/17/19 12/11/22 History Rosuvastatin [Crestor] 20 mg PO DAILY 10/06/21 12/11/22 History Dapagliflozin Propanediol [Farxiga] 10 mg PO DAILY 09/06/22 12/11/22 History carvediloL [Coreg] 3.125 mg PO BID 09/06/22 12/11/22 History traMADol HCL 50 mg PO Q6H PRN 3 Days #12 tab 09/10/22 12/11/22 Rx Furosemide [Lasix] 40 mg PO BID 12/11/22 12/11/22 History Potassium Chloride [Klor-Con M20] 20 meq PO DAILY 12/11/22 12/11/22 History Allergies Allergy/AdvReac Type Severity Reaction Status Date / Time No Known Allergies Allergy Verified 12/11/22 18:10 Surgical - Exam Vital Signs Temp Pulse Resp BP Pulse Ox 97.6 F 74 18 156/101 98 12/11/22 16:54 12/11/22 16:54 12/11/22 16:54 12/11/22 16:54 12/11/22 16:54 - General well developed, well nourished, no distress - Eyes PERRL - ENT normal pinna - Neck no masses - Respiratory normal expansion - Cardiovascular Rhythm: regular - Abdomen Abdomen: soft, non tender Results - Labs 12/11/22 23:43 12/11/22 17:08 Abnormal Lab Results - Last 24 Hours (Table) 12/11/22 12/11/22 12/11/22 Range/Units 17:08 17:08 17:08 WBC 21.1 H (3.8-10.6) k/uL RBC (4.30-5.90) m/uL Hgb 11.5 L (13.0-17.5) gm/dL Hct 37.4 L (39.0-53.0) % MCV 78.2 L (80.0-100.0) fL MCH 24.1 L (25.0-35.0) pg MCHC 30.8 L (31.0-37.0) g/dL RDW 19.4 H (11.5-15.5) % Plt Count (150-450) k/uL Neutrophils # 19.6 H (1.3-7.7) k/uL Lymphocytes # 0.4 L (1.0-4.8) k/uL Potassium 5.3 H (3.5-5.1) mmol/L Creatinine 1.44 H (0.66-1.25) mg/dL Glucose 142 H (74-99) mg/dL Plasma Lactic Acid Andres 3.5 H* (0.7-2.0) mmol/L Total Bilirubin 2.4 H (0.2-1.3) mg/dL Troponin I (0.000-0.034) ng/mL Procalcitonin (0.02-0.09) ng/mL 12/11/22 12/11/22 12/11/22 Range/Units 17:08 23:43 23:43 WBC (3.8-10.6) k/uL RBC 3.97 L (4.30-5.90) m/uL Hgb 9.7 L D (13.0-17.5) gm/dL Hct 31.0 L (39.0-53.0) % MCV 78.1 L (80.0-100.0) fL MCH 24.4 L (25.0-35.0) pg MCHC (31.0-37.0) g/dL RDW 19.4 H (11.5-15.5) % Plt Count 149 L (150-450) k/uL Neutrophils # 9.3 H (1.3-7.7) k/uL Lymphocytes # 0.3 L (1.0-4.8) k/uL Potassium (3.5-5.1) mmol/L Creatinine (0.66-1.25) mg/dL Glucose (74-99) mg/dL Plasma Lactic Acid Andres (0.7-2.0) mmol/L Total Bilirubin (0.2-1.3) mg/dL Troponin I 0.058 H* (0.000-0.034) ng/mL Procalcitonin 1.58 H (0.02-0.09) ng/mL Diabetes panel 12/11/22 Range/Units 17:08 Sodium 138 (137-145) mmol/L Potassium 5.3 H (3.5-5.1) mmol/L Chloride 104 (98-107) mmol/L Carbon Dioxide 22 (22-30) mmol/L BUN 18 (9-20) mg/dL Creatinine 1.44 H (0.66-1.25) mg/dL Glucose 142 H (74-99) mg/dL Calcium 9.4 (8.4-10.2) mg/dL AST 37 (17-59) U/L ALT 15 (4-49) U/L Alkaline Phosphatase 77 (38-126) U/L Total Protein 7.4 (6.3-8.2) g/dL Albumin 3.9 (3.5-5.0) g/dL Calcium panel 12/11/22 Range/Units 17:08 Calcium 9.4 (8.4-10.2) mg/dL Albumin 3.9 (3.5-5.0) g/dL Pituitary panel 12/11/22 Range/Units 17:08 Sodium 138 (137-145) mmol/L Potassium 5.3 H (3.5-5.1) mmol/L Chloride 104 (98-107) mmol/L Carbon Dioxide 22 (22-30) mmol/L BUN 18 (9-20) mg/dL Creatinine 1.44 H (0.66-1.25) mg/dL Glucose 142 H (74-99) mg/dL Calcium 9.4 (8.4-10.2) mg/dL Adrenal panel 12/11/22 Range/Units 17:08 Sodium 138 (137-145) mmol/L Potassium 5.3 H (3.5-5.1) mmol/L Chloride 104 (98-107) mmol/L Carbon Dioxide 22 (22-30) mmol/L BUN 18 (9-20) mg/dL Creatinine 1.44 H (0.66-1.25) mg/dL Glucose 142 H (74-99) mg/dL Calcium 9.4 (8.4-10.2) mg/dL Total Bilirubin 2.4 H (0.2-1.3) mg/dL AST 37 (17-59) U/L ALT 15 (4-49) U/L Alkaline Phosphatase 77 (38-126) U/L Total Protein 7.4 (6.3-8.2) g/dL Albumin 3.9 (3.5-5.0) g/dL - Imaging CT scan - abdomen: report reviewed (Sigmoid colon thickening.) Assessment and Plan Assessment: Diarrhea, GI bleed. Patient should stop esophagus. Patient will be observed. Patient may require colonoscopy when medically stable.
[2022-12-12 14:06] LABS: Anisocytosis Slight; HCT 31.2 % (39.0-53.0); HGB 9.6 gm/dL (13.0-17.5); Hypochromasia Marked; MCH 24.4 pg (25.0-35.0); MCHC 30.7 g/dL (31.0-37.0); MCV 79.4 fL (80.0-100.0); Mean Platelet Volume 7.5; Microcytosis Slight; Platelet Count 141 k/uL (150-450); RBC 3.93 m/uL (4.30-5.90); RDW 19.5 % (11.5-15.5); WBC 8.3 k/uL (3.8-10.6)
[2022-12-12 14:30] LABS: African American GFR (CKD) 67 (>60 ml/min/1.73 sqM); Anion Gap 9 mmol/L; Blood Urea Nitrogen 15 mg/dL (9-20); Calcium 8.6 mg/dL (8.4-10.2); Carbon Dioxide 25 mmol/L (22-30); Chloride 105 mmol/L (98-107); Glucose 79 mg/dL (74-99); Non-African American GFR(CKD) 58 (>60 ml/min/1.73 sqM); Potassium 4.1 mmol/L (3.5-5.1); Sodium 139 mmol/L (137-145)
--- NOTE | 2022-12-12 20:12 | P.PN ---
Subjective Progress Note Date: 12/12/22 72yo M with advanced heart failure with recurrent ascites requiring paracentesis, most recent paracentesis was earlier this week, atrial fibrillation, hypertension, hyperlipidemia, diabetes mellitus, CHF, presents to the ER today with complaint of nausea vomiting and diarrhea throughout the day today. Patient reports that he's had about 10 episodes of bloody emesis and 10 episodes of diarrhea with bright red blood. Patient is on Eliquis daily. Patient's notes that he seems to have exertional dyspnea however he denies any chest pain palpitations shortness of breath. He reports he feels okay upon arrival in the ER. Blood work completed in ED reveals a WBC of 21.1, hemoglobin of 11.5 and kim telet count of 270, sodium of 138, potassium 5.3, BUN/creatinine of 18/1.44, lactic acid level of 3.5 and troponin mildly elevated at 0.058 CT of the abdomen and pelvis reveals circumferential wall thickening of the sigmoid colon and rectum significant for colitis; [id number] abdominal free fluid; cardiomegaly with effusions -- Reports no further episodes of bloddy diarrhea or hemetemesis; Hgb dropped down to 9.7; we will continue to monitor closely; Sx to evaluate for need for further GI workup. Cardiology consulted for Troponin elevation; patient remains on IV Rocephin; ID to see patient Objective - Vital Signs Vital signs: Vital Signs Temp 98 F 12/12/22 08:00 Pulse 67 12/12/22 08:00 Resp 18 12/12/22 08:00 BP 112/71 12/12/22 08:00 Pulse Ox 100 12/12/22 08:00 FiO2 Intake & Output 12/11/22 12/12/22 12/12/22 18:59 06:59 18:59 Weight 74.843 kg 74.843 kg Other: Voiding Method Toilet # Voids 1 - Exam GENERAL:Chronically ill appearing HENT: Normocephalic, Atraumatic. EYES: PERRL, EOMI PULMONARY: Unlabored respirations. CARDIOVASCULAR: RRR Warm and well perfused extremities ABDOMEN: Soft, non-tender to deep palpation SKIN: No petechia : Deferred NEUROLOGIC: At baseline, poor historian MUSCULOSKELETAL: Moving all extremities with no apparent injury - Labs CBC & Chem 7: 12/12/22 11:46 12/12/22 11:43 Labs: Abnormal Lab Results - Last 24 Hours (Table) 12/11/22 12/11/22 12/11/22 Range/Units 17:08 17:08 17:08 WBC 21.1 H (3.8-10.6) k/uL RBC (4.30-5.90) m/uL Hgb 11.5 L (13.0-17.5) gm/dL Hct 37.4 L (39.0-53.0) % MCV 78.2 L (80.0-100.0) fL MCH 24.1 L (25.0-35.0) pg MCHC 30.8 L (31.0-37.0) g/dL RDW 19.4 H (11.5-15.5) % Plt Count (150-450) k/uL Neutrophils # 19.6 H (1.3-7.7) k/uL Lymphocytes # 0.4 L (1.0-4.8) k/uL Potassium 5.3 H (3.5-5.1) mmol/L Creatinine 1.44 H (0.66-1.25) mg/dL Glucose 142 H (74-99) mg/dL Plasma Lactic Acid Andres 3.5 H* (0.7-2.0) mmol/L Total Bilirubin 2.4 H (0.2-1.3) mg/dL Troponin I (0.000-0.034) ng/mL 12/11/22 12/11/22 Range/Units 17:08 23:43 WBC (3.8-10.6) k/uL RBC 3.97 L (4.30-5.90) m/uL Hgb 9.7 L D (13.0-17.5) gm/dL Hct 31.0 L (39.0-53.0) % MCV 78.1 L (80.0-100.0) fL MCH 24.4 L (25.0-35.0) pg MCHC (31.0-37.0) g/dL RDW 19.4 H (11.5-15.5) % Plt Count 149 L (150-450) k/uL Neutrophils # 9.3 H (1.3-7.7) k/uL Lymphocytes # 0.3 L (1.0-4.8) k/uL Potassium (3.5-5.1) mmol/L Creatinine (0.66-1.25) mg/dL Glucose (74-99) mg/dL Plasma Lactic Acid Andres (0.7-2.0) mmol/L Total Bilirubin (0.2-1.3) mg/dL Troponin I 0.058 H* (0.000-0.034) ng/mL Assessment and Plan Assessment: 1. Acute GI bleed; currently on anticoagulation therapy - Patient reports multiple episodes of bloody diarrhea and hematemesis; patient is currently on Eliquis 5 mg twice a day for atrial fibrillation - Blood work completed in ED reveals a hemoglobin above 11; we will monitor H&H closely with plans to reverse anticoagulation if patient continues to have ep isodes of bloody diarrhea or hematemesis or hemoglobin continues to drop - We will consult general surgery for further GI workup - Start patient on Protonix 40 mg IV every 12 hours; keep patient nothing by mouth; hold Eliquis 2. Ascites with abdominal pain; profound leukocytosis; rule out peritonitis; white blood count elevated at 21.1 with lactic acid of 3.5 upon admission - Patient has been placed on Rocephin 1 g IV daily; we will continue with current antibiotics and monitor closely with CBC, CMP and pro-calcitonin; blood cultures are obtained - Consult ID for further recommendations; patient might need IR for diagnostic/therapeutic paracentesis 3. Acute blood loss anemia; hemoglobin is around 11; we will monitor H&H every 8 hours with plans to transfuse if hemoglobin is less than 7.0; start patient on Protonix 40 mg IV every 12 hours - Plan to reverse anticoagulation versus fresh frozen plasma if hemoglobin drops down profoundly 4. Elevated troponin; likely type II ischemia; we will trend troponin with plans to consult cardiology; recommend 2-D echo 5. Atrial fibrillation; remains rate controlled, patient takes Coreg; anticoagulation therapy has been placed on hold due to GI bleed 6. Hypertension; patient takes Coreg 3.125 mg twice a day and Lasix 40 mg twice a day; we will hold off on antihypertensive therapy given GI bleed and anticipated softer blood pressures; monitor blood pressure closely 7. Hyperlipidemia; Crestor 20 mg daily which will be placed on hold while patient is nothing by mouth DVT prophylaxis; SCDs only given GI bleed CODE STATUS; full code
--- NOTE | 2022-12-12 22:58 | P.CONS ---
History of Present Illness - Reason for Consult Consult date: 12/12/22 - History of Present Illness Patient is a 72-year-old male with a past medical history significant for hypertension hyperlipidemia diabetes mellitus atrial fibrillation, history of recurrent ascites requiring paracentesis secondary to advanced heart failure presenting to the ER for evaluation of nausea vomiting and diarrhea and the patient been complaining of blood in the stools patient did have a multiple loos e stools with some mucus in it has been feeling nauseated and vomiting but no significant abdominal pain and the patient denies having any fever or chills with the symptoms the patient was evaluated on presentation to the hospital patient was afebrile and no fever has been recorded subsequently patient was not tachycardic hypotensive or hypoxic did have vital 21,000 which did came down to normal today patient did have a mild elevated creatinine lactic acid was 3.5 liver enzymes are normal patient did have stool proceed which came back negative CT abdominal pelvis did show circumferential wall thickening of the sigmoid colon and rectum concerning for colitis small to moderate abdominal free fluid cardiomegaly with effusion correlate for CHF patient was started on Rocephin infectious disease was consulted for further management of antibiotic therapy Past Medical History Past Medical History: Atrial Fibrillation, Chest Pain / Angina, Heart Failure, Diabetes Mellitus, Hyperlipidemia, Hypertension, Myocardial Infarction ([place]) Additional Past Medical History / Comment(s): CHF, back pain Last Myocardial Infarction Date:: 2012 History of Any Multi-Drug Resistant Organisms: None Reported Past Surgical History: Appendectomy, Cholecystectomy, Coronary Bypass/CABG, Pacemaker Additional Past Surgical History / Comment(s): CABG in 2012. multiple paracentesis Past Anesthesia/Blood Transfusion Reactions: No Reported Reaction Type of Cardiac Device: AICD Device Placement Date:: 02/23/22 Past Psychological History: No Psychological Hx Reported Smoking Status: Never smoker Past Alcohol Use History: Occasional Past Drug Use History: None Reported - Past Family History Brother(s) Family Medical History: Cancer Sister(s) Family Medical History: Cancer Medications and Allergies Home Medications Medication Instructions Recorded Confirmed Type Apixaban [Eliquis] 5 mg PO BID 07/17/19 12/11/22 History Rosuvastatin [Crestor] 20 mg PO DAILY 10/06/21 12/11/22 History Dapagliflozin Propanediol [Farxiga] 10 mg PO DAILY 09/06/22 12/11/22 History carvediloL [Coreg] 3.125 mg PO BID 09/06/22 12/11/22 History traMADol HCL 50 mg PO Q6H PRN 3 Days #12 tab 09/10/22 12/11/22 Rx Furosemide [Lasix] 40 mg PO BID 12/11/22 12/11/22 History Potassium Chloride [Klor-Con M20] 20 meq PO DAILY 12/11/22 12/11/22 History Allergies Allergy/AdvReac Type Severity Reaction Status Date / Time No Known Allergies Allergy Verified 12/11/22 18:10 Physical Exam Vitals: Vital Signs Temp Pulse Pulse Resp BP BP Pulse Ox 12/12/22 11:36 98.3 F 70 18 127/83 98 12/12/22 08:00 98 F 67 18 112/71 100 12/12/22 04:00 98.2 F 91 15 114/75 98 12/12/22 02:00 72 15 12/12/22 00:00 97.9 F 82 16 136/79 98 12/11/22 23:19 98.0 F 77 14 134/82 100 12/11/22 22:38 71 17 104/61 96 12/11/22 22:21 77 14 12/11/22 21:35 70 17 117/66 97 12/11/22 19:16 73 19 131/74 98 12/11/22 18:24 70 20 133/85 98 12/11/22 17:16 91 16 139/98 99 12/11/22 16:54 97.6 F 74 18 156/101 98 Intake and Output 12/11/22 12/12/22 12/12/22 22:59 06:59 14:59 Other: Voiding Method Toilet Toilet Toilet # Voids 1 Weight 74.843 kg 74.843 kg Results CBC & Chem 7: 12/12/22 11:46 12/12/22 11:43 Labs: Abnormal Lab Results - Last 24 Hours (Table) 12/11/22 12/11/22 12/11/22 Range/Units 17:08 17:08 17:08 WBC 21.1 H (3.8-10.6) k/uL RBC (4.30-5.90) m/uL Hgb 11.5 L (13.0-17.5) gm/dL Hct 37.4 L (39.0-53.0) % MCV 78.2 L (80.0-100.0) fL MCH 24.1 L (25.0-35.0) pg MCHC 30.8 L (31.0-37.0) g/dL RDW 19.4 H (11.5-15.5) % Plt Count (150-450) k/uL Neutrophils # 19.6 H (1.3-7.7) k/uL Lymphocytes # 0.4 L (1.0-4.8) k/uL Potassium 5.3 H (3.5-5.1) mmol/L Creatinine 1.44 H (0.66-1.25) mg/dL Glucose 142 H (74-99) mg/dL Plasma Lactic Acid Andres 3.5 H* (0.7-2.0) mmol/L Total Bilirubin 2.4 H (0.2-1.3) mg/dL Troponin I (0.000-0.034) ng/mL Procalcitonin (0.02-0.09) ng/mL 12/11/22 12/11/22 12/11/22 Range/Units 17:08 23:43 23:43 WBC (3.8-10.6) k/uL RBC 3.97 L (4.30-5.90) m/uL Hgb 9.7 L D (13.0-17.5) gm/dL Hct 31.0 L (39.0-53.0) % MCV 78.1 L (80.0-100.0) fL MCH 24.4 L (25.0-35.0) pg MCHC (31.0-37.0) g/dL RDW 19.4 H (11.5-15.5) % Plt Count 149 L (150-450) k/uL Neutrophils # 9.3 H (1.3-7.7) k/uL Lymphocytes # 0.3 L (1.0-4.8) k/uL Potassium (3.5-5.1) mmol/L Creatinine (0.66-1.25) mg/dL Glucose (74-99) mg/dL Plasma Lactic Acid Andres (0.7-2.0) mmol/L Total Bilirubin (0.2-1.3) mg/dL Troponin I 0.058 H* (0.000-0.034) ng/mL Procalcitonin 1.58 H (0.02-0.09) ng/mL Assessment and Plan Plan: 1patient presented to the hospital with nausea vomiting diarrhea and blood in the stools did have elevated lactic acid elevated white count but no fever with a question of infectious versus noninfectious etiology such as ischemic colitis as the patient did have history of A-fib and congestive heart failure. 2we will check stool for culture. 3continue with Rocephin and Flagyl while waiting for the work-up to be completed. We will follow on clinical condition and cultures to further adjust medication if needed Thank you for this consultation we will follow the patient along with you Dictation was produced using [employer] dictation software. please excuse any grammatical, word or spelling errors. Time with Patient: Greater than 30
[2022-12-12] MEDS: metroNIDAZOLE 500 MG TAB PO SCH (23:40)
[2022-12-13] MEDS: metroNIDAZOLE 500 MG TAB PO SCH ×3 (08:05→20:20)
[2022-12-13] MEDS: PANTOPRAZOLE 40 MG/10 ML VIAL IVP SCH ×2 (08:05→20:20)
[2022-12-13 08:41] LABS: Anisocytosis Slight; HCT 31.1 % (39.0-53.0); HGB 9.5 gm/dL (13.0-17.5); Hypochromasia Marked; MCH 24.2 pg (25.0-35.0); MCHC 30.4 g/dL (31.0-37.0); MCV 79.7 fL (80.0-100.0); Mean Platelet Volume 7.7; Microcytosis Slight; Platelet Count 131 k/uL (150-450); RDW 19.6 % (11.5-15.5); WBC 6.8 k/uL (3.8-10.6)
[2022-12-13] MEDS: ATORVASTATIN 40 MG TAB PO SCH (11:08)
[2022-12-13] MEDS: carvediloL 3.125 MG TAB PO SCH ×2 (11:08→17:30)
--- NOTE | 2022-12-13 11:11 | P.CRDCN ---
History of Present Illness History of present illness: HISTORY OF PRESENT ILLNESS: This is a 72-year-old male with a past medical history significant for coronary artery disease, atrial fibrillation, hypertension, hyperlipidemia, ischemic cardiomyopathy, pacemaker insertion, and congestive heart failure. Patient follows with a buggy runner in [place]. We have been asked to see the patient in consultation for elevated troponin. Patient examined at the bedside. Patient presented to the hospital with a chief complaint of nausea, vomiting, and diarrhea. Patient states on Tuesday he had multiple episodes of vomiting and diarrhea. He reports blood in his urine and also in his stools. He states he had multiple episodes of this at home. He denied having any abdominal pain. Denies chest pain or pressure. Denies SOB. Denies dizziness or lightheadedness. He states he has not had episodes like this in the past before. He reports resolution of his symptoms this morning. His anticoagulation has been placed on hold. General surgery is following. Hemoglobin 9.5. * EKG reveals paced rhythm. Heart rate 69. * Laboratory data: WBC 6.8. Hemoglobin 9.5. Platelet count 131. Sodium 139. Potassium 4.1. BUN 15. Creatinine 1.24. Troponin 0.058. 0.064. * Current home cardiac medications include Eliquis 5mg BID, Lasix 40 mg twice a day, rosuvastatin 20 mg daily, carvedilol 3.125 mg twice a day * Most recent echocardiogram obtained in June 2019 revealed ejection fraction 20-25%, mild MR, mild TR * Patient underwent 5 vessel CABG in August 2022 REVIEW OF SYSTEMS: At the time of my exam: CONSTITUTIONAL: Denies fever or chills. HEENT: Denies blurred vision, vision changes, or eye pain. Denies hemoptysis CARDIOVASCULAR: Denies chest pain. Denies orthopnea. Denies PND. Denies palpitat ions RESPIRATORY: Denies shortness of breath. GASTROINTESTINAL: Denies abdominal pain. Denies nausea or vomiting. HEMATOLOGIC: Denies bleeding disorders. GENITOURINARY: Denies any blood in urine. SKIN: Denies pruitis. Denies rash. PHYSICAL EXAM: VITAL SIGNS: Reviewed. GENERAL: Well-developed in no acute distress. HEENT: Head is normocephalic. Pupils are equal, round. Sclerae anicteric. Mucous membranes of the mouth are moist. Neck supple. No JVD or thyromegaly LUNGS: Respirations even and unlabored. Lungs essentially clear to auscultation bilaterally. HEART: Regular rate and rhythm. S1 and S2 heard. ABDOMEN: Soft. Nondistended. Nontender. EXTREMITIES: Normal range of motion. No clubbing or cyanosis. Peripheral pulses intact. No lower extremity edema NEUROLOGIC: Awake and alert. Oriented x 3. ASSESSMENT: Bright red blood per rectum Hematuria, , resolved Acute blood loss anemia Abnormal troponins, flat, no evidence of ACS Coronary artery disease with previous CABG x 5 vessels, 2013 Persistent atrial fibrillation Ischemic cardiomyopathy, EF 20-25% in 2019 Hypertension Hyperlipidemia History of permanent pacemaker insertion Chronic congestive heart failure with reduced EF, currently euvolemic PLAN: An acute coronary event has been ruled out Obtain 2D echo to assess cardiac structure and function Continue current cardiac medications Patient's anticoagulation has been placed on hold. Monitor hemoglobin. Consider watchman device if patient continues to have issues with bleeding Consider Entresto in the future Hold Lasix at this time. Consider resuming tomorrow Further recommendations pending patient course Nurse practitioner note has been reviewed by physician. Signing provider agrees with the documented findings, assessment, and plan of care. Past Medical History Past Medical History: Atrial Fibrillation, Chest Pain / Angina, Heart Failure, Diabetes Mellitus, Hyperlipidemia, Hypertension, Myocardial Infarction ([place]) Additional Past Medical History / Comment(s): CHF, back pain Last Myocardial Infarction Date:: 2012 History of Any Multi-Drug Resistant Organisms: None Reported Past Surgical History: Appendectomy, Cholecystectomy, Coronary Bypass/CABG, Pacemaker Additional Past Surgical History / Comment(s): CABG in 2012. multiple paracentesis Past Anesthesia/Blood Transfusion Reactions: No Reported Reaction Type of Cardiac Device: AICD Device Placement Date:: 02/23/22 Past Psychological History: No Psychological Hx Reported Smoking Status: Never smoker Past Alcohol Use History: Occasional Past Drug Use History: None Reported - Past Family History Brother(s) Family Medical History: Cancer Sister(s) Family Medical History: Cancer Medications and Allergies Home Medications Medication Instructions Recorded Confirmed Type Apixaban [Eliquis] 5 mg PO BID 07/17/19 12/11/22 History Rosuvastatin [Crestor] 20 mg PO DAILY 10/06/21 12/11/22 History Dapagliflozin Propanediol [Farxiga] 10 mg PO DAILY 09/06/22 12/11/22 History carvediloL [Coreg] 3.125 mg PO BID 09/06/22 12/11/22 History traMADol HCL 50 mg PO Q6H PRN 3 Days #12 tab 09/10/22 12/11/22 Rx Furosemide [Lasix] 40 mg PO BID 12/11/22 12/11/22 History Potassium Chloride [Klor-Con M20] 20 meq PO DAILY 12/11/22 12/11/22 History Allergies Allergy/AdvReac Type Severity Reaction Status Date / Time No Known Allergies Allergy Verified 12/11/22 18:10 Physical Exam Vitals: Vital Signs Temp Pulse Resp BP Pulse Ox 12/13/22 04:00 97.4 F L 76 15 153/97 98 12/13/22 02:00 64 14 12/13/22 00:00 97.8 F 72 16 138/81 98 12/12/22 20:00 97.6 F 70 15 137/83 99 12/12/22 16:00 98 F 74 18 141/89 98 12/12/22 14:00 70 18 12/12/22 11:36 98.3 F 70 18 127/83 98 12/12/22 08:00 98 F 67 18 112/71 100 Intake and Output 12/12/22 12/13/22 12/13/22 22:59 06:59 14:59 Output Total 0 0 Balance 0 0 Output: Stool 0 0 Other: Voiding Method Toilet Toilet # Voids 1 Weight 76.1 kg Results 12/13/22 07:46 12/12/22 11:43 Cardiac Enzymes 12/12/22 Range/Units 11:43 Troponin I 0.064 H* (0.000-0.034) ng/mL CBC 12/12/22 Range/Units 11:46 WBC 8.3 (3.8-10.6) k/uL RBC 3.93 L (4.30-5.90) m/uL Hgb 9.6 L (13.0-17.5) gm/dL Hct 31.2 L (39.0-53.0) % Plt Count 141 L (150-450) k/uL Comprehensive Metabolic Panel 12/12/22 Range/Units 11:43 Sodium 139 (137-145) mmol/L Potassium 4.1 (3.5-5.1) mmol/L Chloride 105 (98-107) mmol/L Carbon Dioxide 25 (22-30) mmol/L BUN 15 (9-20) mg/dL Creatinine 1.24 (0.66-1.25) mg/dL Glucose 79 (74-99) mg/dL Calcium 8.6 (8.4-10.2) mg/dL Current Medications Generic Name Dose Route Start Last Admin Trade Name Freq PRN Reason Stop Dose Admin Ceftriaxone Sodium 1 gm/ 50 mls @ 100 mls/hr 12/12/22 09:15 12/12/22 09:54 Sodium Chloride IVPB 100 mls/hr Q24HR FRANKLIN Administration Protocol Metronidazole 500 mg 12/12/22 23:00 12/12/22 23:40 Metronidazole 500 Mg Tab PO 500 mg TID FRANKLIN Administration Protocol Naloxone HCl 0.2 mg 12/11/22 20:39 Naloxone 0.4 Mg/Ml 1 Ml Vial IV Q2M PRN Opioid Reversal Pantoprazole Sodium 40 mg 12/12/22 09:15 12/12/22 19:55 Pantoprazole 40 Mg/10 Ml Vial IVP 40 mg BID FRANKLIN Administration Intake and Output 12/12/22 12/13/22 12/13/22 22:59 06:59 14:59 Output Total 0 0 Balance 0 0 Output: Stool 0 0 Other: Voiding Method Toilet Toilet # Voids 1 Weight 76.1 kg 12/12/22 11:46 12/12/22 11:43
[2022-12-13] MEDS: DAPAGLIFLOZIN PROPANEDIOL 10 MG TABLET PO SCH (11:51)
--- NOTE | 2022-12-13 12:19 | P.PN ---
Subjective Progress Note Date: 12/13/22 CHIEF COMPLAINT: GI bleeding HISTORY OF PRESENT ILLNESS: Patient admitted with bright red blood per rectum with diarrhea. Patient has had no further bleeding. Nursing staff noted a small bloody BM yesterday. Patient reports since then he's had a small formed brown bowel movement. Denies any abdominal pain. Computed tomography scan had shown thickening of the sigmoid colon. Hemoglobin stable at 9.5. Patient's anticoagulation remains on hold. Followed by cardiology PHYSICAL EXAM: VITAL SIGNS: Reviewed. GENERAL: Well-developed in no acute distress. ABDOMEN: Soft. Nondistended. Nontender. NEUROLOGIC: Alert and oriented. Cranial nerves II through XII grossly intact. ASSESSMENT: 1. Acute GI bleed with bright red blood per rectum and diarrhea 2. Acute blood loss Anemia 3. Circumferential wall thickening of the sigmoid colon and rectum correlate for colitis noted on CT PLAN: -Okay to start clear liquids -Patient may require colonoscopy when medically stable -Continue to observe -Continue to monitor hemoglobin -Continue to hold Eliquis -Continue antibiotics for colitis Physician [employer] note has been reviewed by physician. Signing provider agrees with the documented findings, assessment, and plan of care. Objective - Vital Signs Vital signs: Vital Signs Temp 97.6 F 12/13/22 11:15 Pulse 71 12/13/22 11:15 Resp 18 12/13/22 11:15 BP 145/87 12/13/22 11:15 Pulse Ox 100 12/13/22 11:15 FiO2 Intake & Output 12/12/22 12/13/22 12/13/22 18:59 06:59 18:59 Intake Total 240 Output Total 0 0 Balance 0 0 240 Weight 76.1 kg Intake: Oral 240 Output: Gastric Drainage 0 Urine 0 Stool 0 0 Urine/Stool Mix 0 Emesis 0 Oral Regurgitation 0 Other 0 Other: Voiding Method Toilet Toilet # Voids 0 1 1 # Bowel Movements 0 1 - Labs CBC & Chem 7: 12/13/22 07:46 12/12/22 11:43 Labs: Abnormal Lab Results - Last 24 Hours (Table) 12/12/22 12/12/22 12/13/22 Range/Units 11:43 11:46 07:46 RBC 3.93 L 3.90 L (4.30-5.90) m/uL Hgb 9.6 L 9.5 L (13.0-17.5) gm/dL Hct 31.2 L 31.1 L (39.0-53.0) % MCV 79.4 L 79.7 L (80.0-100.0) fL MCH 24.4 L 24.2 L (25.0-35.0) pg MCHC 30.7 L 30.4 L (31.0-37.0) g/dL RDW 19.5 H 19.6 H (11.5-15.5) % Plt Count 141 L 131 L (150-450) k/uL Troponin I 0.064 H* (0.000-0.034) ng/mL Microbiology - Last 24 Hours (Table) 12/11/22 18:20 Blood Culture - Preliminary Blood
--- NOTE | 2022-12-13 12:28 | CA ---
Transthoracic Echo Report Name: Cipriano Last Age: 72 Gender: M : 1950 Exam Date: 12/13/2022 09:23 Exam Location: [facility] Ht (in): 72 Wt (lb): 167 Ordering Physician: Tracy German Attending/Referring Phys: [id number], Maxi [facility] Aide Instructor Almita Hightower, RAÚL Procedure CPT: Indications: lv function, elevated trops Cardiac Hx: Hx of CABG Technical Quality: Good Contrast 1: Total Dose (mL): Contrast 2: Total Dose (mL): MEASUREMENTS (Male / Female) Normal Values 2D ECHO LV Diastolic Diameter PLAX 6.9 cm 4.2 - 5.9 / 3.9 - 5.3 cm LV Systolic Diameter PLAX 6.3 cm IVS Diastolic Thickness 1.1 cm 0.6 - 1.0 / 0.6 - 0.9 cm LVPW Diastolic Thickness 1.3 cm 0.6 - 1.0 / 0.6 - 0.9 cm LV Relative Wall Thickness 0.4 RV Internal Dim ED PLAX 4.2 cm LVOT Diameter 2.4 cm LA Systolic Diameter LX 5.2 cm 3.0 - 4.0 / 2.7 - 3.8 cm LV Diastolic Volume MOD 4C 163.3 cm??? LV Systolic Volume MOD 4C 129.4 cm??? LV Ejection Fraction MOD 4C 20.7 % LV Cardiac Index MOD 4C 1416.9 cm???/min???m??? LV Diastolic Length 4C 8.8 cm LV Systolic Length 4C 8.4 cm LV Diastolic Volume MOD 2C 143.1 cm??? LV Systolic Volume MOD 2C 88.9 cm??? LV Ejection Fraction MOD 2C 37.9 % LV Cardiac Index MOD 2C 2267.8 cm???/min???m??? LV Diastolic Length 2C 10.1 cm LV Systolic Length 2C 9.3 cm LA Volume 148.5 cm??? 18 - 58 / 22 - 52 cm??? M-MODE Aortic Root Diameter MM 3.7 cm MV E Point Septal Separation 2.9 cm AV Cusp Separation MM 1.1 cm DOPPLER AV Peak Velocity 170.6 cm/s AV Peak Gradient 11.6 mmHg AV Mean Velocity 101.9 cm/s AV Mean Gradient 4.8 mmHg AV Velocity Time Integral 30.6 cm LVOT Peak Velocity 95.5 cm/s LVOT Peak Gradient 3.7 mmHg AV Area Cont Eq pk 2.6 cm??? MV Area PHT 5.2 cm??? MR Peak Velocity 498.6 cm/s MR Peak Gradient 99.4 mmHg Mitral E Point Velocity 132.5 cm/s Mitral A Point Velocity 51.7 cm/s Mitral E to A Ratio 2.6 MV Deceleration Time 146.6 ms MV E' Velocity 6.3 cm/s Mitral E to MV E' Ratio 21.1 TR Peak Velocity 330.1 cm/s TR Peak Gradient 43.6 mmHg Right Ventricular Systolic Press 46.6 mmHg FINDINGS Left Ventricle Left ventricular ejection fraction is estimated at 25-30 %. Mildly increased septal wall thickness. Severely increased left ventricular diastolic diameter. Basel mid and apical septum hypokinesis. Apical inferior hypokinesis Right Ventricle Severe right ventricular dilatation. Moderate pulmonary hypertension. Right Atrium Normal right atrial size. Left Atrium Severely increased left atrial diameter. Severely increased left atrial volume. Moderately increased left atrial area. Mitral Valve Mitral valve thickened. Mitral annular calcification. Moderate mitral regurgitation. Aortic Valve Trileaflet aortic valve. Aortic valve sclerosis. Tricuspid Valve Structurally normal tricuspid valve. Mild tricuspid regurgitation. Pulmonic Valve Structurally normal pulmonic valve. Mild pulmonic regurgitation. Pericardium No pericardial effusion. Aorta Normal size aortic root and proximal ascending aorta. CONCLUSIONS Biventricular enlargement with reduced systolic function Moderate tricuspid regurgitation Left atrial enlargement Previewed by: Dr. Vijay Martinez MD (Electronically Signed) Final Date: 13 December 2022 12:27
--- NOTE | 2022-12-13 12:29 | P.PN ---
Subjective Progress Note Date: 12/13/22 Principal diagnosis: Colitis Patient is a 72-year-old male with a past medical history significant for hypertension hyperlipidemia diabetes mellitus atrial fibrillation, history of recurrent ascites requiring paracentesis secondary to advanced heart failure presenting to the ER for evaluation of nausea vomiting and diarrhea and the patient been complaining of blood in the stools,CT abdominal pelvis did show circumferential wall thickening of the sigmoid colon and rectum concerning for colitis, patient did have elevated lactic acid and white count On today's evaluation that is a 12/13/2022, the patient is afebrile, patient is breathing comfortably patient denies any further nausea vomiting, no abdominal pain the patient only has resolved and no further bleeding per rectum Objective - Vital Signs Vital signs: Vital Signs Temp 97.6 F 12/13/22 11:15 Pulse 71 12/13/22 11:15 Resp 18 12/13/22 11:15 BP 145/87 12/13/22 11:15 Pulse Ox 100 12/13/22 11:15 FiO2 Intake & Output 12/12/22 12/13/22 12/13/22 18:59 06:59 18:59 Intake Total 240 Output Total 0 0 Balance 0 0 240 Weight 76.1 kg Intake: Oral 240 Output: Gastric Drainage 0 Urine 0 Stool 0 0 Urine/Stool Mix 0 Emesis 0 Oral Regurgitation 0 Other 0 Other: Voiding Method Toilet Toilet # Voids 0 1 1 # Bowel Movements 0 1 - Exam GENERAL DESCRIPTION: An elderly male lying in bed in no distress RESPIRATORY SYSTEM: Unlabored breathing , decreased breath sounds at bases HEART: S1 S2 regular rate and rhythm , ABDOMEN: Soft , no tenderness EXTREMITIES: No edema feet - Labs CBC & Chem 7: 12/13/22 07:46 12/12/22 11:43 Labs: Abnormal Lab Results - Last 24 Hours (Table) 12/12/22 12/12/22 12/13/22 Range/Units 11:43 11:46 07:46 RBC 3.93 L 3.90 L (4.30-5.90) m/uL Hgb 9.6 L 9.5 L (13.0-17.5) gm/dL Hct 31.2 L 31.1 L (39.0-53.0) % MCV 79.4 L 79.7 L (80.0-100.0) fL MCH 24.4 L 24.2 L (25.0-35.0) pg MCHC 30.7 L 30.4 L (31.0-37.0) g/dL RDW 19.5 H 19.6 H (11.5-15.5) % Plt Count 141 L 131 L (150-450) k/uL Troponin I 0.064 H* (0.000-0.034) ng/mL Microbiology - Last 24 Hours (Table) 12/11/22 18:20 Blood Culture - Preliminary Blood Assessment and Plan (1) Colitis Current Visit: Yes Status: Acute Code(s): K52.9 - NONINFECTIVE GASTROENTERITIS AND COLITIS, UNSPECIFIED SNOMED Code(s): 15563398 Plan: 1patient presented to the hospital with nausea vomiting diarrhea and blood in the stools did have elevated lactic acid elevated white count but no fever with a question of infectious versus noninfectious etiology such as ischemic colitis as the patient did have history of A-fib and congestive heart failure. 2we are currently waiting for stool culture 3patient to continue with the Rocephin and Flagyl while waiting for the work- up to be completed. Dictation was produced using [employer] dictation software. please excuse any grammatical, word or spelling errors. Time with Patient: Less than 30
--- NOTE | 2022-12-13 20:20 | P.PN ---
Subjective Progress Note Date: 12/13/22 72yo M with advanced heart failure with recurrent ascites requiring paracentesis, most recent paracentesis was earlier this week, atrial fibrillation, hypertension, hyperlipidemia, diabetes mellitus, CHF, presents to the ER today with complaint of nausea vomiting and diarrhea throughout the day today. Patient reports that he's had about 10 episodes of bloody emesis and 10 episodes of diarrhea with bright red blood. Patient is on Eliquis daily. Patient's notes that he seems to have exertional dyspnea however he denies any chest pain palpitations shortness of breath. He reports he feels okay upon arrival in the ER. Blood work completed in ED reveals a WBC of 21.1, hemoglobin of 11.5 and kim telet count of 270, sodium of 138, potassium 5.3, BUN/creatinine of 18/1.44, lactic acid level of 3.5 and troponin mildly elevated at 0.058 CT of the abdomen and pelvis reveals circumferential wall thickening of the sigmoid colon and rectum significant for colitis; [id number] abdominal free fluid; cardiomegaly with effusions -- Reports no further episodes of bloddy diarrhea or hemetemesis; Hgb dropped down to 9.7; we will continue to monitor closely; Sx to evaluate for need for further GI workup. Cardiology consulted for Troponin elevation; patient remains on IV Rocephin; ID to see patient 12/13/2022 Patient is seen and evaluated in follow-up today being followed by cardiology along with general surgery services. Undergoing further evaluation with infectious disease following as well for colitis. General surgery talking of possibly needing colonoscopy is having any further bleeding episodes. Patient reports yesterday he did have a small bowel movement that consisted of some blood although nothing today. Hemoglobin is stable above 9 with no active bleeding noted at this time. Patient is afebrile denies chest pain or shortness of breath. Patient reports to feeling generally weak and denies any nausea or vomiting. Patient being started on clear liquid diet and being monitored closely. Review of systems: Constitutional: No reports of fatigue, fever, or chills Cardiovascular: No reports of chest pain or palpitations Respiratory: No reports of shortness of breath or cough GI: No reports of nausea, vomiting, or diarrhea : No reports of dysuria or retention Neurovascular: No reports of weakness or numbness All medications have been reviewed Physical exam: Gen: This is a 72-year-old male who is awake, alert and oriented 3, well- developed, well-nourished HEENT: Head is atraumatic, normocephalic. Pupils equal, round. Sclerae is anicteric. NECK: Supple. No JVD. No lymphadenopathy. No thyromegaly. LUNGS: Clear to auscultation. No wheezes or rhonchi. No intercostal retractions. HEART: Regular rate and rhythm. No murmur. ABDOMEN: Soft. Bowel sounds are present. No masses. No tenderness. EXTREMITIES: No pedal edema. No calf tenderness. NEUROLOGICAL: Patient is awake, alert and oriented x3. Cranial nerves 2 through 12 are grossly intact. Assessment: Acute GI bleed with multiple episodes of bloody diarrhea and hematemesis History of atrial fibrillation, currently rate controlled, was maintained on eliquis which is being held due to above Ascites with abdominal pain with profound leukocytosis, rule out peritonitis Acute blood loss anemia secondary to GI bleed Circumferential wall thickening of the sigmoid colon, concern for colitis as not ed on CT imaging Elevated troponin, likely type II ischemia Hypertension history Hyperlipidemia DVT prophylaxis, SCDs only GI prophylaxis Full code Plan: Patient is continued on antibiotics with infectious disease following with concerns of colitis General surgery following monitor for any further bleeding. Hemoglobin is above 9 today and discussing possible colonoscopy if further bleeding occurs Patient being started on clear liquid diet and monitored for tolerance per general surgery Follow-up labs for a.m. ordered Cardiology following and order 2-D echo Anticoagulation currently on hold Patient sees Dr. Alston in the outpatient setting and he will resume care starting 12/14/2022 The impression and plan of care has been dictated by Aggie Nava, Nurse Practitioner as directed. Dr. Michael MD I have performed a history and examination and MDM of this patient, discussed the same with the dictator, and agree with the dictator's assessment and plan as written ,documented as a scribe. Based on total visit time, I have performed more than 50% of the visit. Objective - Vital Signs Vital signs: Vital Signs Temp 97.8 F 12/13/22 08:00 Pulse 70 12/13/22 08:00 Resp 22 12/13/22 08:00 BP 147/90 12/13/22 08:00 Pulse Ox 98 12/13/22 08:00 FiO2 Intake & Output 08/20/23 08/21/23 08/21/23 18:59 06:59 18:59 Output Total 0 0 Balance 0 0 Weight 76.1 kg Output: Gastric Drainage 0 Urine 0 Stool 0 0 Urine/Stool Mix 0 Emesis 0 Oral Regurgitation 0 Other 0 Other: Voiding Method Toilet Toilet # Voids 0 1 # Bowel Movements 0 - Labs CBC & Chem 7: 12/13/22 07:46 12/12/22 11:43 Labs: Abnormal Lab Results - Last 24 Hours (Table) 12/11/22 12/12/22 12/12/22 Range/Units 23:43 11:43 11:46 RBC 3.93 L (4.30-5.90) m/uL Hgb 9.6 L (13.0-17.5) gm/dL Hct 31.2 L (39.0-53.0) % MCV 79.4 L (80.0-100.0) fL MCH 24.4 L (25.0-35.0) pg MCHC 30.7 L (31.0-37.0) g/dL RDW 19.5 H (11.5-15.5) % Plt Count 141 L (150-450) k/uL Troponin I 0.064 H* (0.000-0.034) ng/mL Procalcitonin 1.58 H (0.02-0.09) ng/mL 12/13/22 Range/Units 07:46 RBC 3.90 L (4.30-5.90) m/uL Hgb 9.5 L (13.0-17.5) gm/dL Hct 31.1 L (39.0-53.0) % MCV 79.7 L (80.0-100.0) fL MCH 24.2 L (25.0-35.0) pg MCHC 30.4 L (31.0-37.0) g/dL RDW 19.6 H (11.5-15.5) % Plt Count 131 L (150-450) k/uL Troponin I (0.000-0.034) ng/mL Procalcitonin (0.02-0.09) ng/mL Microbiology - Last 24 Hours (Table) 12/11/22 18:20 Blood Culture - Preliminary Blood
[2022-12-14] MEDS: carvediloL 3.125 MG TAB PO SCH ×2 (06:34→17:17)
[2022-12-14] MEDS: PANTOPRAZOLE 40 MG/10 ML VIAL IVP SCH ×2 (08:19→20:00)
[2022-12-14] MEDS: ATORVASTATIN 40 MG TAB PO SCH (08:19)
[2022-12-14] MEDS: metroNIDAZOLE 500 MG TAB PO SCH ×3 (08:19→20:01)
[2022-12-14] MEDS: DAPAGLIFLOZIN PROPANEDIOL 10 MG TABLET PO SCH (08:19)
[2022-12-14 08:54] LABS: Anisocytosis Slight; HCT 32.2 % (39.0-53.0); HGB 9.3 gm/dL (13.0-17.5); Hypochromasia Marked; MCH 23.6 pg (25.0-35.0); MCV 81.3 fL (80.0-100.0); Mean Platelet Volume 7.5; Microcytosis Slight; Platelet Count 141 k/uL (150-450); RBC 3.96 m/uL (4.30-5.90); RDW 19.2 % (11.5-15.5); WBC 4.9 k/uL (3.8-10.6)
--- NOTE | 2022-12-14 09:01 | P.PN ---
Subjective Progress Note Date: 12/14/22 Principal diagnosis: GI bleeding This is a 72-year-old male who is admitted after episodes of bloody emesis and diarrhea with bright red blood. Patient has a history of advanced heart failure with recurrent ascites requiring paracentesis. CT of the abdomen and pelvis showed colitis. Anticoagulation has been on hold. Patient reports he has not had any episodes of bloody emesis or stool since admission. Hemoglobin yesterday was 9.5, today is 9.3. Patient reports he is feeling well today with no current complaints. Currently surgeon is not planning any interventions unl ess patient has more bleeding episodes. Objective - Vital Signs Vital signs: Vital Signs Temp 97.9 F 12/14/22 03:54 Pulse 69 12/14/22 03:54 Resp 19 12/14/22 03:54 BP 143/83 12/14/22 03:54 Pulse Ox 95 12/14/22 03:54 FiO2 Intake & Output 12/13/22 12/14/22 12/14/22 18:59 06:59 18:59 Intake Total 440 0 Output Total 0 Balance 440 0 0 Intake: Oral 440 0 Output: Stool 0 Other: Voiding Method Toilet # Voids 1 2 # Bowel Movements 1 - Constitutional General appearance: Present: cooperative, no acute distress - EENT Eyes: Present: PERRLA - Neck Neck: Present: normal ROM. Absent: lymphadenopathy, rigidity - Respiratory Respiratory: bilateral: CTA - Cardiovascular Rhythm: regular - Gastrointestinal General gastrointestinal: Present: soft. Absent: tenderness - Integumentary Integumentary: Present: normal, normal turgor - Psychiatric Psychiatric: Present: A&O x's 3, appropriate affect, intact judgment & insight - Labs CBC & Chem 7: 12/14/22 07:43 12/12/22 11:43 Labs: Abnormal Lab Results - Last 24 Hours (Table) 12/14/22 Range/Units 07:43 RBC 3.96 L (4.30-5.90) m/uL Hgb 9.3 L (13.0-17.5) gm/dL Hct 32.2 L (39.0-53.0) % MCH 23.6 L (25.0-35.0) pg MCHC 29.0 L (31.0-37.0) g/dL RDW 19.2 H (11.5-15.5) % Plt Count 141 L (150-450) k/uL Microbiology - Last 24 Hours (Table) 12/11/22 18:20 Blood Culture - Preliminary Blood Assessment and Plan (1) Acute GI bleeding Current Visit: Yes Status: Acute Code(s): K92.2 - GASTROINTESTINAL HEMORRHAGE, UNSPECIFIED SNOMED Code(s): 93396555 (2) Acute blood loss anemia Current Visit: Yes Status: Acute Code(s): D62 - ACUTE POSTHEMORRHAGIC ANEMIA SNOMED Code(s): 166146103 (3) History of atrial fibrillation Current Visit: Yes Status: Acute Code(s): Z86.79 - PERSONAL HISTORY OF OTHER DISEASES OF THE CIRCULATORY SYSTEM SNOMED Code(s): 987376275 (4) Heart failure Current Visit: Yes Status: Acute Code(s): I50.9 - HEART FAILURE, UNSPECIFIED SNOMED Code(s): 51190487 (5) Colitis Current Visit: Yes Status: Acute Code(s): K52.9 - NONINFECTIVE GASTROENTERITIS AND COLITIS, UNSPECIFIED SNOMED Code(s): 91677914 (6) Diabetes Current Visit: No Status: Acute Code(s): E11.9 - TYPE 2 DIABETES MELLITUS WITHOUT COMPLICATIONS SNOMED Code(s): 10026888 Plan: Check CBC and CMP in the morning. Monitor for any bleeding. Patient seen and evaluated by nurse practitioner, physician in agreement with plan
--- NOTE | 2022-12-14 09:13 | CDI ---
Documentation Clarification Form Date: 12/14/2022 08:52:49 AM From: Ernestina Gomes RN CCDS Phone: [phone] Admit Date: 12/11/2022 08:59:00 PM Patient Name: Cipriano Last Visit Number: [id number] Discharge Date: ATTENTION: The Clinical Documentation Specialists (CDI) and [facility] Coding Staff appreciate your assistance in clarifying documentation. Please respond to the clarification below the line at the bottom and electronically sign. The CDI & [facility] Coding staff will review the response and follow-up if needed. Please note: Queries are made part of the Legal Health Record. If you have any questions, please contact the author of this message via ITS. Dr. Reji Alston Your patient has troponin level(s) of: 0.058, 12/11 AND 0.064, 12/12 with documentation from H&P, 12/11 Elevated troponin: likely type 2 ischemia; we will trend troponin. Please clarify if there is an additional diagnosis and/or clinical significance related to this value. Patient history/risk factors: 72-year-old Male presents to the ED with nausea, vomiting and diarrhea. Bloody emesis bright red and Bright red blood per rectum. Medical History: CHF, Permanent Afib; HLD; DM; SD and HTN. 12/11, H&P Clinical indicators: H&P, 12/11: Elevated Troponin; likely type 2 ischemia Cardiology consult, 12/13: Acute coronary event has been ruled out Hgb: 12/11 11.5; 9.7; 12/12 9.6 ECHO, 12/13: EF 25-30% Biventricular enlargement with reduced systolic function. Moderate tricuspid regurgitation. Left atrial enlargement. EKG, 12/13: Electronic ventricular pacemaker, Abnormal rhythm ECG Surgical note, 12/13: Patient may require colonoscopy on if he has any further incidents of bleeding. Treatment: Cardiology consult; 2D echo; monitor Hgb every 8 hours will transfuse if Hgb is less than 7.0; Protonix 40mg IV every Q12H. Surgical consult Is there an additional diagnosis and/or clinical significance related to the above lab result/information: [ ] Type 2 SD due to (specify cause ____) [x ] Type 2 SD ruled out [ ] No additional diagnosis/Not clinically significant [ ] Other, please specify [ ] Unable to determine Reference: [employer] Fourth [place] Definition of Myocardial Infraction Elevated Cardiac Troponin >99th percentile with Troponin rise and/or fall With Acute ischemia o Acute Myocardial Infarction ? Atherosclerosis thrombosis Type I SD ? Oxygen supply and demand imbalance Type II SD (Please indicate etiology) Without acute ischemia o Acute Myocardial Injury (Template Last Reviewed: October 2022) MTDD
--- NOTE | 2022-12-14 12:07 | P.PN ---
Subjective Progress Note Date: 12/14/22 HISTORY OF PRESENT ILLNESS: This is a 72-year-old male with a past medical history significant for coronary artery disease, atrial fibrillation, hypertension, hyperlipidemia, ischemic cardiomyopathy, pacemaker insertion, and congestive heart failure. Patient follows with a brick dropper in [place]. We have been asked to see the patient in consultation for elevated troponin. Patient examined at the bedside. Patient presented to the hospital with a chief complaint of nausea, vomiting, and diarrhea. Patient states on Tuesday he had multiple episodes of vomiting and diarrhea. He reports blood in his urine and also in his stools. He states he had multiple episodes of this at home. He denied having any abdominal pain. Denies chest pain or pressure. Denies SOB. Denies dizziness or lightheadedness. He states he has not had episodes like this in the past before. He reports res olution of his symptoms this morning. His anticoagulation has been placed on hold. General surgery is following. Hemoglobin 9.5. * EKG reveals paced rhythm. Heart rate 69. * Laboratory data: WBC 6.8. Hemoglobin 9.5. Platelet count 131. Sodium 139. Potassium 4.1. BUN 15. Creatinine 1.24. Troponin 0.058. 0.064. * Current home cardiac medications include Eliquis 5mg BID, Lasix 40 mg twice a day, rosuvastatin 20 mg daily, carvedilol 3.125 mg twice a day * Most recent echocardiogram obtained in June 2019 revealed ejection fraction 20-25%, mild MR, mild TR * Patient underwent 5 vessel CABG in August 2022 12/14/2022 Patient is doing well from cardiac vessel standpoint. His hemoglobin is stable at 9.5 and has not dropped down further. Surgery team is not undergo colono scopy and upper GI endoscopy at this time. His echocardiogram showed an EF of 25-30% with multiple wall motion abnormalities but no new findings from prior echo. His primary brick dropper is [facility]. PHYSICAL EXAM: VITAL SIGNS: Reviewed. GENERAL: Well-developed in no acute distress. HEENT: Head is normocephalic. Pupils are equal, round. Sclerae anicteric. Mucous membranes of the mouth are moist. Neck supple. No JVD or thyromegaly LUNGS: Respirations even and unlabored. Lungs essentially clear to auscultation bilaterally. HEART: Regular rate and rhythm. S1 and S2 heard. ABDOMEN: Soft. Nondistended. Nontender. EXTREMITIES: Normal range of motion. No clubbing or cyanosis. Peripheral pulses intact. No lower extremity edema NEUROLOGIC: Awake and alert. Oriented x 3. ASSESSMENT: Bright red blood per rectum Hematuria, , resolved Acute blood loss anemia Abnormal troponins, flat, no evidence of ACS Coronary artery disease with previous CABG x 5 vessels, 2013 Persistent atrial fibrillation Ischemic cardiomyopathy, EF 20-25% in 2019 Hypertension Hyperlipidemia History of permanent pacemaker insertion Chronic congestive heart failure with reduced EF, currently euvolemic PLAN: continue his current cardiac medications. Start Entresto 2426 mg twice a day. Continue Coreg, atorvastatin Start aspirin 81 mg daily holding his Eliquis. I have had a detailed discussion with the patient about his risk of bleeding and risk of stroke. We have came to our shared decision making that we will hold his anticoagulation until he follows up with his brick dropper. Recommend outpatient follow-up and reassess the need for systemic anticoagulation. patient will be a good candidate for watchman device procedure outpatient at the bases of his primary brick dropper description Objective - Vital Signs Vital signs: Vital Signs Temp 97.6 F 12/14/22 08:00 Pulse 66 12/14/22 08:00 Resp 18 12/14/22 08:00 BP 121/81 12/14/22 08:00 Pulse Ox 97 12/14/22 08:00 FiO2 Intake & Output 12/13/22 12/14/22 12/14/22 18:59 06:59 18:59 Intake Total 440 0 Output Total 0 Balance 440 0 0 Intake: Oral 440 0 Output: Stool 0 Other: Voiding Method Toilet Toilet # Voids 1 2 # Bowel Movements 1 - Labs CBC & Chem 7: 12/14/22 07:43 12/12/22 11:43 Labs: Abnormal Lab Results - Last 24 Hours (Table) 12/14/22 Range/Units 07:43 RBC 3.96 L (4.30-5.90) m/uL Hgb 9.3 L (13.0-17.5) gm/dL Hct 32.2 L (39.0-53.0) % MCH 23.6 L (25.0-35.0) pg MCHC 29.0 L (31.0-37.0) g/dL RDW 19.2 H (11.5-15.5) % Plt Count 141 L (150-450) k/uL Microbiology - Last 24 Hours (Table) 12/11/22 18:20 Blood Culture - Preliminary Blood
[2022-12-14] MEDS: ASPIRIN 81 MG PO SCH (12:23)
[2022-12-14] MEDS: SACUBITRIL/VALSARTAN 24 MG-26 MG TABLET PO SCH ×2 (12:28→20:01)
--- NOTE | 2022-12-14 13:46 | P.PN ---
Subjective Progress Note Date: 12/14/22 CHIEF COMPLAINT: GI bleeding HISTORY OF PRESENT ILLNESS: Patient admitted with bright red blood per rectum with diarrhea. Patient denies any further bloody bowel movements. Denies abdominal pain. Hgb stable at 9.3. Stool for C. diff negative. PHYSICAL EXAM: VITAL SIGNS: Reviewed. GENERAL: Well-developed in no acute distress. ABDOMEN: Soft. Nondistended. Nontender. NEUROLOGIC: Alert and oriented. Cranial nerves II through XII grossly intact. ASSESSMENT: 1. Acute GI bleed with bright red blood per rectum and diarrhea improved 2. Acute blood loss Anemia 3. Circumferential wall thickening of the sigmoid colon and rectum correlate for colitis noted on CT PLAN: -Advance diet to full liquids -Continue to observe -Possible colonoscopy on if patient has any recurrent bleeding -Continue to monitor hemoglobin -Continue to hold Eliquis -Continue antibiotics for colitis Physician Insurance Instructor note has been reviewed by physician. Signing provider agrees with the documented findings, assessment, and plan of care. Objective - Vital Signs Vital signs: Vital Signs Temp 97.8 F 12/14/22 12:00 Pulse 72 12/14/22 12:00 Resp 16 12/14/22 12:00 BP 136/86 12/14/22 12:00 Pulse Ox 100 12/14/22 12:00 FiO2 Intake & Output 12/13/22 12/14/22 12/14/22 18:59 06:59 18:59 Intake Total 440 240 Output Total 0 Balance 440 0 240 Intake: Oral 440 240 Output: Stool 0 Other: Voiding Method Toilet Toilet # Voids 1 2 2 # Bowel Movements 1 - Labs CBC & Chem 7: 12/14/22 07:43 12/12/22 11:43 Labs: Abnormal Lab Results - Last 24 Hours (Table) 12/14/22 Range/Units 07:43 RBC 3.96 L (4.30-5.90) m/uL Hgb 9.3 L (13.0-17.5) gm/dL Hct 32.2 L (39.0-53.0) % MCH 23.6 L (25.0-35.0) pg MCHC 29.0 L (31.0-37.0) g/dL RDW 19.2 H (11.5-15.5) % Plt Count 141 L (150-450) k/uL Microbiology - Last 24 Hours (Table) 12/11/22 18:20 Blood Culture - Preliminary Blood
--- NOTE | 2022-12-14 14:37 | P.PN ---
Subjective Progress Note Date: 12/14/22 Principal diagnosis: Colitis Patient is a 72-year-old male with a past medical history significant for hypertension hyperlipidemia diabetes mellitus atrial fibrillation, history of recurrent ascites requiring paracentesis secondary to advanced heart failure presenting to the ER for evaluation of nausea vomiting and diarrhea and the patient been complaining of blood in the stools,CT abdominal pelvis did show circumferential wall thickening of the sigmoid colon and rectum concerning for colitis, patient did have elevated lactic acid and white count On today's evaluation that is a 12/13/2022, the patient remains to be afebrile, patient is breathing on room air, the patient denies any further nausea vomiting, no abdominal pain the patient only has resolved and no further bleeding per rectum. Patient did have a hemoglobin of 9 by the white count is 4.9 corrected is 1.24 stool for C. diff was negative stool culture not obtained blood culture so far pending Objective - Vital Signs Vital signs: Vital Signs Temp 97.6 F 12/14/22 08:00 Pulse 66 12/14/22 08:00 Resp 18 12/14/22 08:00 BP 121/81 12/14/22 08:00 Pulse Ox 97 12/14/22 08:00 FiO2 Intake & Output 12/13/22 12/14/22 12/14/22 18:59 06:59 18:59 Intake Total 440 0 Output Total 0 Balance 440 0 0 Intake: Oral 440 0 Output: Stool 0 Other: Voiding Method Toilet Toilet # Voids 1 2 # Bowel Movements 1 - Exam GENERAL DESCRIPTION: An elderly male lying in bed in no distress RESPIRATORY SYSTEM: Unlabored breathing , decreased breath sounds at bases HEART: S1 S2 regular rate and rhythm , ABDOMEN: Soft , no tenderness EXTREMITIES: No edema feet - Labs CBC & Chem 7: 12/14/22 07:43 12/12/22 11:43 Labs: Abnormal Lab Results - Last 24 Hours (Table) 12/14/22 Range/Units 07:43 RBC 3.96 L (4.30-5.90) m/uL Hgb 9.3 L (13.0-17.5) gm/dL Hct 32.2 L (39.0-53.0) % MCH 23.6 L (25.0-35.0) pg MCHC 29.0 L (31.0-37.0) g/dL RDW 19.2 H (11.5-15.5) % Plt Count 141 L (150-450) k/uL Microbiology - Last 24 Hours (Table) 12/11/22 18:20 Blood Culture - Preliminary Blood Assessment and Plan (1) Colitis Current Visit: Yes Status: Acute Code(s): K52.9 - NONINFECTIVE GASTROENTE RITIS AND COLITIS, UNSPECIFIED SNOMED Code(s): 69263926 Plan: 1patient presented to the hospital with nausea vomiting diarrhea and blood in the stools did have elevated lactic acid elevated white count but no fever with a question of infectious versus noninfectious etiology such as ischemic colitis as the patient did have history of A-fib and congestive heart failure. 2patient seemed to have show some clinical improvement and will continue with the Rocephin and Flagyl while waiting for the work-up to be completed. Dictation was produced using [employer] dictation software. please excuse any grammatical, word or spelling errors. Time with Patient: Less than 30
[2022-12-14] MEDS: HYDROcodone/APAP 5-325MG 1 EACH TAB PO PRN (22:12)
[2022-12-15 07:08] LABS: Anisocytosis Slight; HCT 33.7 % (39.0-53.0); HGB 10.4 gm/dL (13.0-17.5); Hypochromasia Marked; MCH 24.5 pg (25.0-35.0); Mean Platelet Volume 8.2; Microcytosis Slight; Platelet Count 175 k/uL (150-450); RBC 4.26 m/uL (4.30-5.90); RDW 19.1 % (11.5-15.5); WBC 4.5 k/uL (3.8-10.6)
[2022-12-15] MEDS: HYDROcodone/APAP 5-325MG 1 EACH TAB PO PRN ×2 (07:11→21:38)
[2022-12-15 07:17] LABS: ALT 11 U/L (4-49); AST 18 U/L (17-59); African American GFR (CKD) >90 (>60 ml/min/1.73 sqM); Albumin 2.4 g/dL (3.5-5.0); Alkaline Phosphatase 48 U/L (38-126); Anion Gap 7 mmol/L; Blood Urea Nitrogen 6 mg/dL (9-20); Calcium 8.2 mg/dL (8.4-10.2); Carbon Dioxide 23 mmol/L (22-30); Chloride 106 mmol/L (98-107); Glucose 77 mg/dL (74-99); Non-African American GFR(CKD) 81 (>60 ml/min/1.73 sqM); Potassium 3.2 mmol/L (3.5-5.1); Sodium 136 mmol/L (137-145); Total Bilirubin 0.9 mg/dL (0.2-1.3); Total Protein 5.1 g/dL (6.3-8.2)
[2022-12-15] MEDS: metroNIDAZOLE 500 MG TAB PO SCH ×3 (07:50→21:38)
[2022-12-15] MEDS: ATORVASTATIN 40 MG TAB PO SCH (07:50)
[2022-12-15] MEDS: carvediloL 3.125 MG TAB PO SCH ×2 (07:50→16:55)
[2022-12-15] MEDS: ASPIRIN 81 MG PO SCH (07:50)
[2022-12-15] MEDS: SACUBITRIL/VALSARTAN 24 MG-26 MG TABLET PO SCH ×2 (07:51→20:38)
[2022-12-15] MEDS: DAPAGLIFLOZIN PROPANEDIOL 10 MG TABLET PO SCH (07:51)
[2022-12-15] MEDS ORDERED: Potassium Replacement Protocol 1 EACH MISC MISCELLANE PRN (08:10)
[2022-12-15] MEDS: PANTOPRAZOLE 40 MG/10 ML VIAL IVP SCH ×2 (09:28→20:39)
--- NOTE | 2022-12-15 13:09 | P.PN ---
Subjective Progress Note Date: 12/15/22 CHIEF COMPLAINT: GI bleeding HISTORY OF PRESENT ILLNESS: Patient admitted with bright red blood per rectum with diarrhea. Patient denies any further bloody bowel movements. Denies abdominal pain. HGB is up from 9.3-10.4 PHYSICAL EXAM: VITAL SIGNS: Reviewed. GENERAL: Well-developed in no acute distress. ABDOMEN: Soft. Nondistended. Nontender. NEUROLOGIC: Alert and oriented. Cranial nerves II through XII grossly intact. ASSESSMENT: 1. Acute GI bleed with bright red blood per rectum and diarrhea improved 2. Acute blood loss Anemia 3. Circumferential wall thickening of the sigmoid colon and rectum correlate for colitis noted on CT PLAN: -Advance diet to Regular -Patient has had no recurrent bleeding. Hemoglobin remained stable. Patient can be discharged from surgical standpoint if tolerating regular diet Physician Value Analyst note has been reviewed by physician. Signing provider agrees with the documented findings, assessment, and plan of care. Objective - Vital Signs Vital signs: Vital Signs Temp 97.3 F L 12/15/22 12:31 Pulse 74 12/15/22 12:31 Resp 14 12/15/22 12:31 BP 123/77 12/15/22 12:31 Pulse Ox 99 12/15/22 12:31 FiO2 Intake & Output 12/14/22 12/15/22 12/15/22 18:59 06:59 18:59 Intake Total 240 Output Total 0 Balance 240 0 Weight 76.793 kg Intake: Oral 240 Output: Stool 0 Other: Voiding Method Toilet Toilet Toilet # Voids 2 1 - Labs CBC & Chem 7: 12/15/22 05:42 12/15/22 05:42 Labs: Abnormal Lab Results - Last 24 Hours (Table) 12/15/22 12/15/22 Range/Units 05:42 05:42 RBC 4.26 L (4.30-5.90) m/uL Hgb 10.4 L (13.0-17.5) gm/dL Hct 33.7 L (39.0-53.0) % MCV 79.0 L (80.0-100.0) fL MCH 24.5 L (25.0-35.0) pg RDW 19.1 H (11.5-15.5) % Sodium 136 L (137-145) mmol/L Potassium 3.2 L (3.5-5.1) mmol/L BUN 6 L (9-20) mg/dL Calcium 8.2 L (8.4-10.2) mg/dL Total Protein 5.1 L (6.3-8.2) g/dL Albumin 2.4 L (3.5-5.0) g/dL Microbiology - Last 24 Hours (Table) 12/11/22 18:20 Blood Culture - Preliminary Blood
[2022-12-15] MEDS: POTASSIUM CHLORIDE ER 20 MEQ TAB.ER PO SCH ×4 (16:55→21:39)
--- NOTE | 2022-12-15 18:49 | P.PN ---
Subjective Progress Note Date: 12/15/22 Principal diagnosis: Lower GI bleed with colitis. This is a continue proximal a 72-year-old white male essentially admitted for colitis. Some hypokalemia is also noted With his morning labs. The patient feels minimal pain. No bleeding hemoglobin is improved. He seems clinically hemodynamically stable. History of ascites due to CHF. Objective - Vital Signs Vital signs: Vital Signs Temp 97.3 F L 12/15/22 12:31 Pulse 74 12/15/22 12:31 Resp 14 12/15/22 12:31 BP 123/77 12/15/22 12:31 Pulse Ox 99 12/15/22 12:31 FiO2 Intake & Output 12/14/22 12/15/22 12/15/22 18:59 06:59 18:59 Intake Total 240 Output Total 0 Balance 240 0 Weight 76.793 kg Intake: Oral 240 Output: Stool 0 Other: Voiding Method Toilet Toilet Toilet # Voids 2 1 2 - Constitutional General appearance: Present: average body habitus - Respiratory Respiratory: bilateral: CTA - Cardiovascular Heart sounds: normal: S1, S2 Abnormal Heart Sounds: Absent: S3 Gallop - Gastrointestinal General gastrointestinal: Present: soft, tenderness - Integumentary Integumentary: Absent: cellulitis - Labs CBC & Chem 7: 12/15/22 05:42 12/15/22 05:42 Labs: Abnormal Lab Results - Last 24 Hours (Table) 12/15/22 12/15/22 Range/Units 05:42 05:42 RBC 4.26 L (4.30-5.90) m/uL Hgb 10.4 L (13.0-17.5) gm/dL Hct 33.7 L (39.0-53.0) % MCV 79.0 L (80.0-100.0) fL MCH 24.5 L (25.0-35.0) pg RDW 19.1 H (11.5-15.5) % Sodium 136 L (137-145) mmol/L Potassium 3.2 L (3.5-5.1) mmol/L BUN 6 L (9-20) mg/dL Calcium 8.2 L (8.4-10.2) mg/dL Total Protein 5.1 L (6.3-8.2) g/dL Albumin 2.4 L (3.5-5.0) g/dL Microbiology - Last 24 Hours (Table) 12/11/22 18:20 Blood Culture - Preliminary Blood Assessment and Plan (1) Acute GI bleeding Current Visit: Yes Status: Acute Code(s): K92.2 - GASTROINTESTINAL HEMORRHAGE, UNSPECIFIED SNOMED Code(s): 09008430 (2) Acute blood loss anemia Current Visit: Yes Status: Acute Code(s): D62 - ACUTE POSTHEMORRHAGIC ANEMIA SNOMED Code(s): 337913782 (3) BRBPR (bright red blood per rectum) Current Visit: Yes Status: Acute Code(s): K62.5 - HEMORRHAGE OF ANUS AND RECTUM SNOMED Code(s): 01669632 (4) Colitis Current Visit: Yes Status: Acute Code(s): K52.9 - NONINFECTIVE GASTROENTERITIS AND COLITIS, UNSPECIFIED SNOMED Code(s): 73425572 (5) Heart failure Current Visit: Yes Status: Acute Code(s): I50.9 - HEART FAILURE, UNSPECIFIED SNOMED Code(s): 86277519 (6) History of atrial fibrillation Current Visit: Yes Status: Acute Code(s): Z86.79 - PERSONAL HISTORY OF OTHER DISEASES OF THE CIRCULATORY SYSTEM SNOMED Code(s): 296176307 Plan: We will continue to follow closely with general surgery. Question need for colonoscopy if bleeding does continue. Potassium replacement protocol. Check CBC and CMP in a.m. Clinically he is seems to be's improving/stabilizing.
[2022-12-15 20:45] VITALS: RESP 19
--- NOTE | 2022-12-15 22:50 | P.PN ---
Subjective Progress Note Date: 12/15/22 Principal diagnosis: Colitis Patient is a 72-year-old male with a past medical history significant for hypertension hyperlipidemia diabetes mellitus atrial fibrillation, history of recurrent ascites requiring paracentesis secondary to advanced heart failure presenting to the ER for evaluation of nausea vomiting and diarrhea and the patient been complaining of blood in the stools,CT abdominal pelvis did show circumferential wall thickening of the sigmoid colon and rectum concerning for colitis, patient did have elevated lactic acid and white count On today's evaluation that is a 12/15/2022, the patient remains to be afebrile patient is breathing comfortably on room air denies any chest pain shortness of breath or cough no nausea no vomiting no abdominal pain no further diarrhea has been tolerating a regular diet. Patient did have a normal white count 4.5 creatinine 0.94 stool for C. difficile is negative stool culture on repeat blood culture has been negative Objective - Vital Signs Vital signs: Vital Signs Temp 97.3 F L 12/15/22 12:31 Pulse 74 12/15/22 12:31 Resp 14 12/15/22 12:31 BP 123/77 12/15/22 12:31 Pulse Ox 99 12/15/22 12:31 FiO2 Intake & Output 12/14/22 12/15/22 12/15/22 18:59 06:59 18:59 Intake Total 240 Output Total 0 Balance 240 0 Weight 76.793 kg Intake: Oral 240 Output: Stool 0 Other: Voiding Method Toilet Toilet Toilet # Voids 2 1 2 - Exam GENERAL DESCRIPTION: An elderly male lying in bed in no distress RESPIRATORY SYSTEM: Unlabored breathing , decreased breath sounds at bases HEART: S1 S2 regular rate and rhythm , ABDOMEN: Soft , no tenderness EXTREMITIES: No edema feet - Labs CBC & Chem 7: 12/15/22 05:42 12/15/22 20:06 Labs: Abnormal Lab Results - Last 24 Hours (Table) 12/15/22 12/15/22 Range/Units 05:42 05:42 RBC 4.26 L (4.30-5.90) m/uL Hgb 10.4 L (13.0-17.5) gm/dL Hct 33.7 L (39.0-53.0) % MCV 79.0 L (80.0-100.0) fL MCH 24.5 L (25.0-35.0) pg RDW 19.1 H (11.5-15.5) % Sodium 136 L (137-145) mmol/L Potassium 3.2 L (3.5-5.1) mmol/L BUN 6 L (9-20) mg/dL Calcium 8.2 L (8.4-10.2) mg/dL Total Protein 5.1 L (6.3-8.2) g/dL Albumin 2.4 L (3.5-5.0) g/dL Microbiology - Last 24 Hours (Table) 12/11/22 18:20 Blood Culture - Preliminary Blood Assessment and Plan (1) Colitis Current Visit: Yes Status: Acute Code(s): K52.9 - NONINFECTIVE GASTR OENTERITIS AND COLITIS, UNSPECIFIED SNOMED Code(s): 49735822 Plan: 1patient presented to the hospital with nausea vomiting diarrhea and blood in the stools did have elevated lactic acid elevated white count but no fever with a question of infectious versus noninfectious etiology such as ischemic colitis as the patient did have history of A-fib and congestive heart failure. 2Patient has shown clinical improvement and did have resolution of his diarrhea no further bleeding per rectum did have evidence of colitis on the CT question of ischemic patient responded to the Rocephin and Flagyl we will give a short course of oral Ceftin and Flagyl on discharge and close outpatient follow- up Dictation was produced using [employer] dictation software. please excuse any grammatical, word or spelling errors. Time with Patient: Less than 30
[2022-12-16 01:43] VITALS: PULSE 75
[2022-12-16] MEDS: ATORVASTATIN 40 MG TAB PO SCH (07:34)
[2022-12-16] MEDS: metroNIDAZOLE 500 MG TAB PO SCH (07:34)
[2022-12-16] MEDS: ASPIRIN 81 MG PO SCH (07:34)
[2022-12-16] MEDS: carvediloL 3.125 MG TAB PO SCH (07:34)
[2022-12-16] MEDS: DAPAGLIFLOZIN PROPANEDIOL 10 MG TABLET PO SCH (07:35)
[2022-12-16] MEDS: SACUBITRIL/VALSARTAN 24 MG-26 MG TABLET PO SCH (07:35)
[2022-12-16] MEDS: PANTOPRAZOLE 40 MG/10 ML VIAL IVP SCH (07:51)
[2022-12-16 08:14] VITALS: BP 133/90; TEMP 97.5
--- NOTE | 2022-12-16 08:51 | P.DS ---
Providers Date of admission: 12/11/22 20:59 Attending physician: Reji Alston Consults: 12/11/22 22:27 Consult Physician Routine Consulting Provider: Sharan Garcia Consult Reason/Comments: bloody diarrhea/ Colitis Do you want consulting provider notified?: Yes, Notify in am 12/12/22 09:04 Consult Physician Routine Consulting Provider: Abdirahman Mares Consult Reason/Comments: Colitis/Sepsis Do you want consulting provider notified?: Yes 12/12/22 09:16 Consult Physician Routine Consulting Provider: Bashir Carvalho Consult Reason/Comments: Elevated trop Do you want consulting provider notified?: Yes Primary care physician: Reji Alston - Discharge Diagnosis(es) (1) Acute GI bleeding Current Visit: Yes Status: Acute (2) Acute blood loss anemia Current Visit: Yes Status: Acute (3) History of atrial fibrillation Current Visit: Yes Status: Acute (4) Heart failure Current Visit: Yes Status: Acute (5) Colitis Current Visit: Yes Status: Acute (6) Diabetes Current Visit: No Status: Acute Hospital Course: This is a 72-year-old male who was admitted after episodes of bloody emesis and diarrhea. Patient has a history of advanced heart failure with recurrent ascites requiring paracentesis. Patient's anticoagulation has been on hold. CT of the abdomen and pelvis showed colitis. Patient has not had any episodes of bloody emesis or stool since admission. Hemoglobin is stable at 10.4 yesterday. Patient will be discharged home today. He will continue to hold his anticoagulation until his follow-up appointment and recheck of his labs. New Prescriptions include entresto, Flagyl, and Ceftin. Patient seen and evaluated by nurse practitioner, physician in agreement with plan Patient Condition at Discharge: Serious Plan - Discharge Summary Discharge Rx Participant: No New Discharge Prescriptions: New metroNIDAZOLE [Flagyl] 500 mg PO TID 7 Days #21 tab cefUROXime axetiL [Ceftin] 500 mg PO BID 7 Days #14 tab Sacubitril/Valsartan [Entresto 24 mg-26 mg Tablet] 1 each PO BID 30 Days #60 tab Continue traMADol HCL 50 mg PO Q6H PRN 3 Days #12 tab PRN Reason: Pain Furosemide [Lasix] 40 mg PO BID Potassium Chloride [Klor-Con M20] 20 meq PO DAILY Rosuvastatin [Crestor] 20 mg PO DAILY carvediloL [Coreg] 3.125 mg PO BID Dapagliflozin Propanediol [Farxiga] 10 mg PO DAILY Discontinued Apixaban [Eliquis] 5 mg PO BID Discharge Medication List Rosuvastatin [Crestor] 20 mg PO DAILY 10/06/21 [History] Dapagliflozin Propanediol [Farxiga] 10 mg PO DAILY 09/06/22 [History] carvediloL [Coreg] 3.125 mg PO BID 09/06/22 [History] traMADol HCL 50 mg PO Q6H PRN 3 Days #12 tab 09/10/22 [Rx] Furosemide [Lasix] 40 mg PO BID 12/11/22 [History] Potassium Chloride [Klor-Con M20] 20 meq PO DAILY 12/11/22 [History] Sacubitril/Valsartan [Entresto 24 mg-26 mg Tablet] 1 each PO BID 30 Days #60 tab 12/16/22 [Rx] cefUROXime axetiL [Ceftin] 500 mg PO BID 7 Days #14 tab 12/16/22 [Rx] metroNIDAZOLE [Flagyl] 500 mg PO TID 7 Days #21 tab 12/16/22 [Rx] Follow up Appointment(s)/Referral(s): Reji Alston MD [Primary Care Provider] - 3 Days (Repeat CBC and CMP at office visit)
[2022-12-16 11:16] VITALS: BMI 22.8
--- NOTE | 2022-12-16 14:40 | P.PN ---
Subjective Progress Note Date: 12/16/22 CHIEF COMPLAINT: GI bleeding HISTORY OF PRESENT ILLNESS: Patient admitted with bright red blood per rectum with diarrhea. Patient denies any further bloody bowel movements. Denies abdominal pain. HGB is up from 9.3-10.4. Patient tolerating diet. PHYSICAL EXAM: VITAL SIGNS: Reviewed. GENERAL: Well-developed in no acute distress. ABDOMEN: Soft. Nondistended. Nontender. NEUROLOGIC: Alert and oriented. Cranial nerves II through XII grossly intact. ASSESSMENT: 1. Acute GI bleed with bright red blood per rectum and diarrhea improved 2. Acute blood loss Anemia 3. Circumferential wall thickening of the sigmoid colon and rectum correlate for colitis noted on CT PLAN: -Patient has had no recurrent bleeding. Hemoglobin remained stable. Patient can be discharged from surgical standpoint Physician Labor And Delivery Nurse note has been reviewed by physician. Signing provider agrees with the documented findings, assessment, and plan of care. Objective - Vital Signs Vital signs: Vital Signs Temp 97.5 F L 12/16/22 07:16 Pulse 75 12/16/22 07:58 Resp 19 12/16/22 07:58 BP 133/90 12/16/22 07:16 Pulse Ox 100 12/16/22 07:16 FiO2 Intake & Output 12/15/22 12/16/22 12/16/22 18:59 06:59 18:59 Weight 76.6 kg Other: Voiding Method Toilet Toilet Toilet # Voids 2 2 - Labs CBC & Chem 7: 12/15/22 05:42 12/15/22 23:31 Labs: Abnormal Lab Results - Last 24 Hours (Table) 12/15/22 Range/Units 20:06 Potassium 3.3 L (3.5-5.1) mmol/L
== END 2022-12-16 12:41 | disposition home or self-care (01) | DRG 392 ==
LOC: EC 16:48 → 3SCARD 20:59 → 4SSUR 12-14 21:12
PROVIDERS: ADMIT Family Medicine; ATTEND Family Medicine
DX: K52.9 Noninfective gastroenteritis and colitis, unspecified (principal); D62 Acute posthemorrhagic anemia; I48.19 Other persistent atrial fibrillation; I50.22 Chronic systolic (congestive) heart failure; R18.8 Other ascites; E87.20 Acidosis, unspecified; Z71.3 Dietary counseling and surveillance; E78.5 Hyperlipidemia, unspecified; E87.6 Hypokalemia; I11.0 Hypertensive heart disease with heart failure; I25.10 Atherosclerotic heart disease of native coronary artery without angina pectoris; I25.2 Old myocardial infarction; I25.5 Ischemic cardiomyopathy; R77.8 Other specified abnormalities of plasma proteins; I08.1 Rheumatic disorders of both mitral and tricuspid valves; R31.9 Hematuria, unspecified; Z79.01 Long term (current) use of anticoagulants; Z79.84 Long term (current) use of oral hypoglycemic drugs; Z79.899 Other long term (current) drug therapy; Z95.810 Presence of automatic (implantable) cardiac defibrillator; M54.9 Dorsalgia, unspecified; E11.9 Type 2 diabetes mellitus without complications
CPT/HCPCS: 36415; 74177; 80048; 80053; 82140; 83605; 84132; 84145; 84484; 85025; 85027; 85730; 86850; 86900; 86901; 87040; 87324; 93306; 96374; 96375; 99285

== ENCOUNTER 2023-06-05 09:14 | Observation (INO) | payer MEDICARE ==
--- NOTE | 2023-06-05 09:39 | ED ---
General Adult HPI - General Chief complaint: Chest Pain Stated complaint: chest pain Time Seen by Provider: 06/05/23 09:24 Source: patient, family, RN notes reviewed Mode of arrival: ambulatory Limitations: no limitations - History of Present Illness Initial comments: Patient is a pleasant 72-year-old male presenting to the emergency department with complaints of chest discomfort. Onset of symptoms was this morning. Discomfort was mild rated 3/10. Discomfort was worse with exertion. Discomfort did feel like an ache in the sternal region. Patient also had some associated exertional dyspnea. Patient is symptom-free at this time. Patient does have previous cardiac history. Patient does have lesion in his right posterior flank that they have seen the doctor for however unclear what it is. There was some bleeding from it this morning. Bleeding has stopped. - Related Data Home Medications Medication Instructions Recorded Confirmed Rosuvastatin [Crestor] 20 mg PO DAILY 10/06/21 12/11/22 Dapagliflozin Propanediol [Farxiga] 10 mg PO DAILY 09/06/22 12/11/22 carvediloL [Coreg] 3.125 mg PO BID 09/06/22 12/11/22 Furosemide [Lasix] 40 mg PO BID 12/11/22 12/11/22 Potassium Chloride [Klor-Con M20] 20 meq PO DAILY 12/11/22 12/11/22 Previous Rx's Medication Instructions Recorded traMADol HCL 50 mg PO Q6H PRN 3 Days #12 tab 09/10/22 Sacubitril/Valsartan [Entresto 24 1 each PO BID 30 Days #60 tab 12/16/22 mg-26 mg Tablet] cefUROXime axetiL [Ceftin] 500 mg PO BID 7 Days #14 tab 12/16/22 metroNIDAZOLE [Flagyl] 500 mg PO TID 7 Days #21 tab 12/16/22 Allergies Allergy/AdvReac Type Severity Reaction Status Date / Time No Known Allergies Allergy Verified 12/11/22 18:10 Review of Systems ROS Statement: Those systems with pertinent positive or pertinent negative responses have been documented in the HPI. ROS Other: All systems not noted in ROS Statement are negative. Constitutional: Denies: fever Eyes: Reports: other (Patient did have some blurry vision with chest discomfort). Denies: eye pain ENT: Denies: ear pain Respiratory: Reports: as per HPI Cardiovascular: Reports: as per HPI, chest pain, dyspnea on exertion Gastrointestinal: Denies: vomiting Past Medical History Past Medical History: Atrial Fibrillation, Chest Pain / Angina, Heart Failure, Diabetes Mellitus, Hyperlipidemia, Hypertension, Myocardial Infarction (OR) Additional Past Medical History / Comment(s): CHF, back pain Last Myocardial Infarction Date:: 2012 History of Any Multi-Drug Resistant Organisms: None Reported Past Surgical History: Appendectomy, Cholecystectomy, Coronary Bypass/CABG, Pacemaker Additional Past Surgical History / Comment(s): CABG in 2012. multiple paracentesis AICD Past Anesthesia/Blood Transfusion Reactions: No Reported Reaction Type of Cardiac Device: AICD Device Placement Date:: 02/23/22 Past Psychological History: No Psychological Hx Reported Smoking Status: Never smoker Past Alcohol Use History: Occasional Past Drug Use History: None Reported - Past Family History Brother(s) Family Medical History: Cancer Sister(s) Family Medical History: Cancer General Exam Limitations: no limitations General appearance: alert, in no apparent distress Head exam: Present: normocephalic Eye exam: Present: normal appearance, PERRL, EOMI Neck exam: Present: normal inspection Respiratory exam: Present: normal lung sounds bilaterally Cardiovascular Exam: Present: regular rate, normal rhythm Expanded Peripheral pulses: 2+: Radial (R), Radial (L), Posterior Tibialis (R), Posterior Tibialis (L) GI/Abdominal exam: Present: soft. Absent: tenderness Extremities exam: Present: normal inspection. Absent: pedal edema, calf tenderness Neurological exam: Present: alert Psychiatric exam: Present: normal affect, normal mood Skin exam: Present: other (Right posterior flank with approximately 2 x 3 cm irregular raised erythematous lesion with evidence of minimal recent bleeding.) Course Vital Signs 06/05/23 09:24 Temperature 99 F Pulse Rate 80 Respiratory 20 Rate Blood Pressure 150/86 O2 Sat by Pulse 100 Oximetry EKG Findings - EKG Results: EKG: interpreted by ERMD (Paced rhythm with a rate of 90. Left axis. Wide QRS complex.) Medical Decision Making - Medical Decision Making Was pt. sent in by a medical professional or institution (, PA, NEIGHBORHOOD WORKER, urgent care, hospital, or fpc...) When possible be specific @ -No Did you speak to anyone other than the patient for history (EMS, parent, family, police, friend...)? What history was obtained from this source @ - is present and provides majority of history as patient is a poor historian and has dementia. Did you review nursing and triage notes (agree or disagree)? Why? @ -I reviewed and agree with nursing and triage notes Were old charts reviewed (outside hosp., previous admission, EMS record, old EKG, old radiological studies, urgent care reports/EKG's, fpc records)? Report findings @ -Previous chest x-ray reviewed Differential Diagnosis (chest pain, altered mental status, abdominal pain women, abdominal pain men, vaginal bleeding, weakness, fever, dyspnea, syncope, headache, dizziness, GI bleed, back pain, seizure, CVA, palpatations, mental h ealth, musculoskeletal)? @ -Differential Chest Pain: Stable Angina, Unstable Angina, STEMI, NSTEMI Aortic Dissection, Pneumothorax, Musculoskeletal, Esophageal Spasm GERD, Cholecystitis, Pancreatitis, Zoster, this is not meant to be an all-inclusive list. EKG interpreted by me (3pts min.). @ -As above X-rays interpreted by me (1pt min.). @ -Chest x-ray shows no acute process CT interpreted by me (1pt min.). @ -None done U/S interpreted by me (1pt. min.). @ -None done What testing was considered but not performed or refused? (CT, X-rays, U/S, labs)? Why? @ -None What meds were considered but not given or refused? Why? @ -None Did you discuss the management of the patient with other professionals (professionals i.e. , PA, NEIGHBORHOOD WORKER, lab, RT, psych nurse, social services assistant, amr physician, teacher, youth probation officer, case work aide)? Give summary @ -Case discussed with Dr. Mathews who will admit covering for Dr. Alston Was smoking cessation discussed for >3mins.? @ -No Was critical care preformed (if so, how long)? @ -No Were there social determinants of health that impacted care today? How? (Xuan elessness, low income, unemployed, alcoholism, drug addiction, transportation, low edu. Level, literacy, decrease access to med. care, penitentiary, rehab)? @ -No Was there de-escalation of care discussed even if they declined (Discuss DNR or withdrawal of care, Hospice)? DNR status @ -No What co-morbidities impacted this encounter? (DM, HTN, Smoking, COPD, CAD, Cancer, CVA, ARF, Chemo, Hep., AIDS, mental health diagnosis, sleep apnea, morbid obesity)? @ -None Was patient admitted / discharged? Hospital course, mention meds given and route, prescriptions, significant lab abnormalities, going to OR and other pertinent info. @ -Patient reevaluated. Patient is symptom-free. Patient and family updated on results and plan. Patient will be admitted. Admission orders written. Cardiac consult placed. Undiagnosed new problem with uncertain prognosis? @ -No Drug Therapy requiring intensive monitoring for toxicity (Heparin, Nitro, Insulin, Cardizem)? @ -No Were any procedures done? @ -No Diagnosis/symptom? @ -Chest pain Acute, or Chronic, or Acute on Chronic? @ -Acute Uncomplicated (without systemic symptoms) or Complicated (systemic symptoms)? @ -Default Side effects of treatment? @ -No Exacerbation, Progression, or Severe Exacerbation? @ -No Poses a threat to life or bodily function? How? (Chest pain, USA, OR, pneumonia, PE, COPD, DKA, ARF, appy, cholecystitis, CVA, Diverticulitis, Homicidal, Suicidal, threat to staff... and all critical care pts) @ -No - Lab Data Result diagrams: 06/05/23 09:44 06/05/23 09:44 Lab Results 06/05/23 06/05/23 06/05/23 Range/Units 09:44 09:44 09:44 WBC 8.7 (3.8-10.6) k/uL RBC 4.52 (4.30-5.90) m/uL Hgb 12.2 L (13.0-17.5) gm/dL Hct 38.2 L (39.0-53.0) % MCV 84.4 (80.0-100.0) fL MCH 27.0 (25.0-35.0) pg MCHC 32.0 (31.0-37.0) g/dL RDW 15.6 H (11.5-15.5) % Plt Count 200 (150-450) k/uL MPV 8.1 Neutrophils % 83 % Lymphocytes % 8 % Monocytes % 5 % Eosinophils % 2 % Basophils % 0 % Neutrophils # 7.2 (1.3-7.7) k/uL Lymphocytes # 0.7 L (1.0-4.8) k/uL Monocytes # 0.5 (0-1.0) k/uL Eosinophils # 0.2 (0-0.7) k/uL Basophils # 0.0 (0-0.2) k/uL Hypochromasia Slight PT 12.2 (10.0-12.5) sec INR 1.1 (<1.2) APTT 27.4 (22.0-30.0) sec Sodium 138 (137-145) mmol/L Potassium 4.6 (3.5-5.1) mmol/L Chloride 104 (98-107) mmol/L Carbon Dioxide 22 (22-30) mmol/L Anion Gap 12 mmol/L BUN 22 H (9-20) mg/dL Creatinine 1.38 H (0.66-1.25) mg/dL Est GFR (CKD-EPI)AfAm 59 (>60 ml/min/1.73 sqM) Est GFR (CKD-EPI)NonAf 51 (>60 ml/min/1.73 sqM) Glucose 174 H (74-99) mg/dL Calcium 10.4 H (8.4-10.2) mg/dL Magnesium 1.6 (1.6-2.3) mg/dL Total Bilirubin 1.4 H (0.2-1.3) mg/dL AST 25 (17-59) U/L ALT 14 (4-49) U/L Alkaline Phosphatase 71 (38-126) U/L Troponin I (0.000-0.034) ng/mL NT-Pro-B Natriuret Pep 2620 pg/mL Total Protein 8.6 H (6.3-8.2) g/dL Albumin 4.5 (3.5-5.0) g/dL 06/05/23 Range/Units 09:44 WBC (3.8-10.6) k/uL RBC (4.30-5.90) m/uL Hgb (13.0-17.5) gm/dL Hct (39.0-53.0) % MCV (80.0-100.0) fL MCH (25.0-35.0) pg MCHC (31.0-37.0) g/dL RDW (11.5-15.5) % Plt Count (150-450) k/uL MPV Neutrophils % % Lymphocytes % % Monocytes % % Eosinophils % % Basophils % % Neutrophils # (1.3-7.7) k/uL Lymphocytes # (1.0-4.8) k/uL Monocytes # (0-1.0) k/uL Eosinophils # (0-0.7) k/uL Basophils # (0-0.2) k/uL Hypochromasia PT (10.0-12.5) sec INR (<1.2) APTT (22.0-30.0) sec Sodium (137-145) mmol/L Potassium (3.5-5.1) mmol/L Chloride (98-107) mmol/L Carbon Dioxide (22-30) mmol/L Anion Gap mmol/L BUN (9-20) mg/dL Creatinine (0.66-1.25) mg/dL Est GFR (CKD-EPI)AfAm (>60 ml/min/1.73 sqM) Est GFR (CKD-EPI)NonAf (>60 ml/min/1.73 sqM) Glucose (74-99) mg/dL Calcium (8.4-10.2) mg/dL Magnesium (1.6-2.3) mg/dL Total Bilirubin (0.2-1.3) mg/dL AST (17-59) U/L ALT (4-49) U/L Alkaline Phosphatase (38-126) U/L Troponin I 0.016 (0.000-0.034) ng/mL NT-Pro-B Natriuret Pep pg/mL Total Protein (6.3-8.2) g/dL Albumin (3.5-5.0) g/dL Disposition Clinical Impression: Chest pain Disposition: ADMITTED IP TO THIS HOSP Is patient prescribed a controlled substance at d/c from ED?: No Referrals: Reji Alston MD [Primary Care Provider] - 1-2 days Time of Disposition: 11:13
[2023-06-05] MEDS: ASPIRIN 81 MG PO STA (09:44)
[2023-06-05] MEDS: NITROGLYCERIN OINT 1 INCH/GM PACKET TOPICAL STA (09:48)
[2023-06-05 09:53] LABS: Basophils % (A) 0 %; Eosinophils # (A) 0.2 k/uL (0-0.7); Eosinophils % (A) 2 %; HCT 38.2 % (39.0-53.0); HGB 12.2 gm/dL (13.0-17.5); Hypochromasia Slight; Lymphocytes # (A) 0.7 k/uL (1.0-4.8); Lymphocytes % (A) 8 %; MCV 84.4 fL (80.0-100.0); Mean Platelet Volume 8.1; Monocytes # (A) 0.5 k/uL (0-1.0); Monocytes % (A) 5 %; Neutrophils # (A) 7.2 k/uL (1.3-7.7); Neutrophils % (A) 83 %; Platelet Count 200 k/uL (150-450); RBC 4.52 m/uL (4.30-5.90); RDW 15.6 % (11.5-15.5); WBC 8.7 k/uL (3.8-10.6)
[2023-06-05 10:02] LABS: INR 1.1 (<1.2); Partial Thromboplastin Time 27.4 sec (22.0-30.0); Prothrombin Time 12.2 sec (10.0-12.5)
[2023-06-05 10:03] LABS: ALT 14 U/L (4-49); AST 25 U/L (17-59); African American GFR (CKD) 59 (>60 ml/min/1.73 sqM); Albumin 4.5 g/dL (3.5-5.0); Alkaline Phosphatase 71 U/L (38-126); Anion Gap 12 mmol/L; Blood Urea Nitrogen 22 mg/dL (9-20); Calcium 10.4 mg/dL (8.4-10.2); Carbon Dioxide 22 mmol/L (22-30); Chloride 104 mmol/L (98-107); Glucose 174 mg/dL (74-99); Magnesium 1.6 mg/dL (1.6-2.3); Non-African American GFR(CKD) 51 (>60 ml/min/1.73 sqM); Potassium 4.6 mmol/L (3.5-5.1); Sodium 138 mmol/L (137-145); Total Bilirubin 1.4 mg/dL (0.2-1.3); Total Protein 8.6 g/dL (6.3-8.2)
[2023-06-05 10:11] LABS: NT-Pro-B-Type Natriuretic Pept 2620 pg/mL
--- NOTE | 2023-06-05 10:47 | XR ---
EXAMINATION TYPE: XR chest 2V DATE OF EXAM: 06/05/2023 COMPARISON: 09/05/2022 HISTORY: Chest pain TECHNIQUE: Frontal and lateral views of the chest are obtained. FINDINGS: There is mild cardiomegaly. There is a 2-lead cardiac pacemaker and a defibrillator. The lungs are clear. There is no pleural effusion or pneumothorax. The pulmonary vasculature is not congested. The osseous structures are intact. IMPRESSION: Mild cardiomegaly. No acute cardiopulmonary disease.
[2023-06-05] MEDS ORDERED: NITROGLYCERIN SL TABS 0.4 MG TAB SUBLINGUAL PRN (11:10)
[2023-06-05] MEDS: NITROGLYCERIN OINT 1 INCH/GM PACKET TOPICAL SCH (12:04)
[2023-06-05] MEDS ORDERED: DEXTROSE 50% SYRINGE 50 ML IVP PRN ×2 (12:14)
[2023-06-05] MEDS ORDERED: traMADol 50 MG TAB PO PRN (12:23)
[2023-06-05] MEDS ORDERED: NALOXONE 0.4 MG/ML 1 ML VIAL IV PRN (12:24)
[2023-06-05] MEDS ORDERED: TEMAZEPAM 15 MG CAP PO PRN (12:24)
[2023-06-05] MEDS ORDERED: MAG HYDROX/AL HYDROX/SIMETH 30 ML CUP PO PRN (12:24)
[2023-06-05] MEDS ORDERED: ONDANSETRON 4 MG/2 ML VIAL IVP PRN (12:24)
[2023-06-05] MEDS ORDERED: MELATONIN 3 MG TABLET PO PRN (12:24)
[2023-06-05] MEDS ORDERED: ACETAMINOPHEN TAB 325 MG TAB PO PRN (12:24)
--- NOTE | 2023-06-05 12:31 | P.HPIM ---
History of Present Illness H&P Date: 06/05/23 History of present illness; patient is a 72-year-old gentleman past medically significant for coronary artery disease s/p CABG, atrial fibrillation, hypertension, hyperlipidemia who presented to the ER because of chest pain that started this morning. Patient stated that he woke up this morning and noticed that he had chest pain that was central in location, described it as an ache, nonradiating, aggravated by exertion, associated with shortness of breath. There is no relieving factor associated with chest pain. There is no complaint of nausea, vomiting abdominal pain. Patient denies any palpitation. There was no complaint of orthopnea or PND. Initial lab work done in the ER showed WBC 8.7, hemoglobin 9.2, platelet count 200, sodium 130, potassium 4.6, BUN 22, creatinine 1.38, glucose 174, calcium 10.4, total bilirubin 1.4 EKG done in the ER showed heart rate of 90, ventricular pacemaker, no ST segment elevation or depression seen, no T-wave inversions seen. Chest x-ray done in the ER mild cardiomegaly, no acute cardiopulmonary process Patient admitted to internal medicine service REVIEW OF SYSTEMS: CONSTITUTIONAL: No fever, no malaise, no fatigue. HEENT: No recent visual problems or hearing problems. Denied any sore throat. CARDIOVASCULAR: As mentioned in HPI PULMONARY: As mentioned HPI GASTROINTESTINAL: No diarrhea, no nausea, no vomiting, no abdominal pain. NEUROLOGICAL: No headaches, no weakness, no numbness. HEMATOLOGICAL: Denies any bleeding or petechiae. GENITOURINARY: Denies any burning micturition, frequency, or urgency. MUSCULOSKELETAL/RHEUMATOLOGICAL: Denies any joint pain, swelling, or any muscle pain. ENDOCRINE: Denies any polyuria or polydipsia. The rest of the 14-point review of systems is negative. PHYSICAL EXAMINATION: GENERAL: The patient is alert and oriented x3, not in any acute distress. Well developed, well nourished. HEENT: Pupils are round and equally reacting to light. EOMI. No scleral icterus. No conjunctival pallor. Normocephalic, atraumatic. No pharyngeal erythema. No thyromegaly. CARDIOVASCULAR: S1 and S2 present. No murmurs, rubs, or gallops. PULMONARY: Chest is clear to auscultation, no wheezing or crackles. ABDOMEN: Soft, nontender, nondistended, normoactive bowel sounds. No palpable organomegaly. MUSCULOSKELETAL: No joint swelling or deformity. EXTREMITIES: No cyanosis, clubbing, or pedal edema. NEUROLOGICAL: Gross neurological examination did not reveal any focal deficits. SKIN: Skin lesion on right side of back Assessment and plan Chest pain, rule out acute coronary syndrome Coronary artery disease with previous CABG x 5 vessels, 2012 Persistent atrial fibrillation Ischemic cardiomyopathy, EF 20-25% in 2019 Hypertension Hyperlipidemia History of permanent pacemaker insertion Chronic congestive heart failure with reduced EF, currently euvolemic Skin lesion on right side of back Monitor vital signs Monitor CBC Monitor CMP Continue telemetry monitoring Trend troponin Ordered lipid panel Ordered HbA1c level Ordered 2D echo Monitor blood sugar level, continue sliding scale insulin Consult cardiology Labs and medication were reviewed.. Continue same treatment. Continue with symptomatic treatment. Resume home medication. Monitor labs and vitals. DVT and GI prophylaxis. Further recommendations as per clinical course of the pat ient Dictation was produced using [employer] dictation software. please excuse any grammatical, word or spelling errors. Past Medical History Past Medical History: Atrial Fibrillation, Chest Pain / Angina, Heart Failure, Diabetes Mellitus, Hyperlipidemia, Hypertension, Myocardial Infarction (ID) Additional Past Medical History / Comment(s): CHF, back pain Last Myocardial Infarction Date:: 2012 History of Any Multi-Drug Resistant Organisms: None Reported Past Surgical History: Appendectomy, Cholecystectomy, Coronary Bypass/CABG, Pacemaker Additional Past Surgical History / Comment(s): CABG in 2012. multiple paracentesis AICD Past Anesthesia/Blood Transfusion Reactions: No Reported Reaction Type of Cardiac Device: AICD Device Placement Date:: 02/23/22 Past Psychological History: No Psychological Hx Reported Smoking Status: Never smoker Past Alcohol Use History: Occasional Past Drug Use History: None Reported - Past Family History Brother(s) Family Medical History: Cancer Sister(s) Family Medical History: Cancer Medications and Allergies Home Medications Medication Instructions Recorded Confirmed Type Rosuvastatin [Crestor] 20 mg PO DAILY 10/06/21 06/05/23 History Dapagliflozin Propanediol [Farxiga] 10 mg PO DAILY 09/06/22 06/05/23 History carvediloL [Coreg] 3.125 mg PO BID 09/06/22 06/05/23 History traMADol HCL 50 mg PO Q6H PRN 3 Days #12 tab 09/10/22 06/05/23 Rx Furosemide [Lasix] 40 mg PO DAILY 12/11/22 06/05/23 History Potassium Chloride [Klor-Con M20] 20 meq PO DAILY 12/11/22 06/05/23 History Apixaban [Eliquis] 5 mg PO BID 06/05/23 06/05/23 History Eszopiclone [Lunesta] 2 mg PO HS PRN 06/05/23 06/05/23 History Allergies Allergy/AdvReac Type Severity Reaction Status Date / Time No Known Allergies Allergy Verified 06/05/23 12:00 Physical Exam Vitals: Vital Signs Temp Pulse Pulse Resp BP BP Pulse Ox 06/05/23 12:16 98.7 F 86 15 131/83 100 06/05/23 11:30 70 16 112/68 100 06/05/23 10:30 69 16 98/64 100 06/05/23 09:45 79 16 122/74 100 06/05/23 09:24 99 F 80 20 150/86 100 Intake and Output 06/04/23 06/05/23 06/05/23 22:59 06:59 14:59 Other: Weight 81.647 kg Results CBC & Chem 7: 06/05/23 09:44 06/05/23 09:44 Labs: Abnormal Lab Results - Last 24 Hours (Table) 06/05/23 06/05/23 Range/Units 09:44 09:44 Hgb 12.2 L (13.0-17.5) gm/dL Hct 38.2 L (39.0-53.0) % RDW 15.6 H (11.5-15.5) % Lymphocytes # 0.7 L (1.0-4.8) k/uL BUN 22 H (9-20) mg/dL Creatinine 1.38 H (0.66-1.25) mg/dL Glucose 174 H (74-99) mg/dL Calcium 10.4 H (8.4-10.2) mg/dL Total Bilirubin 1.4 H (0.2-1.3) mg/dL Total Protein 8.6 H (6.3-8.2) g/dL
[2023-06-05 12:49] LABS: Glucose,Whole Blood 120 mg/dL (70-110)
[2023-06-05] MEDS: INSULIN ASPART (NovoLOG) 100 UNIT/ML VIAL SQ SCH (12:53)
[2023-06-05] MEDS: ISOSORBIDE MONONITRATE ER 30 MG TAB.ER.24H PO SCH (12:56)
[2023-06-05 15:03] VITALS: BP 120/74; PULSE 70; RESP 16; TEMP 97.5
--- NOTE | 2023-06-05 15:32 | P.CRDCN ---
History of Present Illness Consult date: 06/05/23 History of present illness: HISTORY OF PRESENTING ILLNESS 72-year-old with PMH of CAD status post CABG and PCI, atrial fibrillation, hypertension and dyslipidemia, ischemic cardiomyopathy, ICD, follows up with Dr. Regalado in [place]. Presented to the hospital because of not feeling well and mild substernal chest heaviness. On admission he received nitroglycerin paste which helped his symptoms. Patient was last admitted to [facility] in November 2022 when he had bright red blood per rectum and hematuria. At that time his anticoagulation was held and he was asked to follow-up with his primary fur designer. Patient recently saw Dr. Regalado outpatient and was doing well. No changes to his medications were made recently. Patient has not had any recent stress test. On admission ECG showed atrial fibrillation with biventricularly paced rhythm, BP 120/74, heart rate 70 bpm, Hemoglobin 12.2, BUN 22, creatinine 1.3 troponin x 2 negative, BNP 2600. Previo usly in November it was 3000. REVIEW OF SYSTEMS 14 point review of system is negative except what is mentioned above in HPI. PHYSICAL EXAMINATION Vital signs reviewed. Head: Normocephalic. Eyes: Sclerae nonicteric. Neck: Brisk carotid upstroke, no jugular venous distention. Lungs: Clear to auscultation. Heart: Regular rate and rhythm, S1-S2, no S3, no murmur or rub. Abdomen: Soft nontender, positive bowel sounds. Extremities: No edema, intact distal pulses. Neuro: Alert, oritented, no focal deficits. Detailed neuro exam was not performed. ASSESSMENT Substernal chest heaviness likely mild worsening of chronic stable angina, angina class II symptoms. Ischemic cardiomyopathy EF 20 to 25% status post AICD Persistent atrial fibrillation Hypertension Dyslipidemia PLAN Patient does not appear in congestive heart failure. He had mild anginal symptoms which are likely related to chronic angina. Rule out acute coronary syndrome so far. No concerns of any new arrhythmias from description. No reported AICD shocking as per the patient. No reported lightheadedness dizziness Continue aspirin 81 mg, Eliquis 5 mg twice daily, atorvastatin 40 mg, Coreg 3.125 mg twice daily Continue Farxiga, Start Imdur 30 mg daily for intensification of his antigen therapy If 3 troponins are negative, and patient symptoms are better on Imdur, patient is okay to be discharged. He should follow-up with his primary fur designer to get evaluated for the need for invasive versus noninvasive ischemic evaluation. Yoandy Jolly MD, FACC, RPVI Thank you for allowing [facility] to participate in this patient's care. Feel free to reach out in case of any followup questions. Past Medical History Past Medical History: Atrial Fibrillation, Chest Pain / Angina, Heart Failure, Diabetes Mellitus, Hyperlipidemia, Hypertension, Myocardial Infarction ([place]) Additional Past Medical History / Comment(s): CHF, back pain Last Myocardial Infarction Date:: 2012 History of Any Multi-Drug Resistant Organisms: None Reported Past Surgical History: Appendectomy, Cholecystectomy, Coronary Bypass/CABG, Pacemaker Additional Past Surgical History / Comment(s): CABG in 2012. multiple paracentesis AICD Past Anesthesia/Blood Transfusion Reactions: No Reported Reaction Type of Cardiac Device: AICD Device Placement Date:: 02/23/22 Past Psychological History: No Psychological Hx Reported Smoking Status: Never smoker Past Alcohol Use History: Occasional Past Drug Use History: None Reported - Past Family History Brother(s) Family Medical History: Cancer Sister(s) Family Medical History: Cancer Medications and Allergies Home Medications Medication Instructions Recorded Confirmed Type Rosuvastatin [Crestor] 20 mg PO DAILY 10/06/21 06/05/23 History Dapagliflozin Propanediol [Farxiga] 10 mg PO DAILY 09/06/22 06/05/23 History carvediloL [Coreg] 3.125 mg PO BID 09/06/22 06/05/23 History traMADol HCL 50 mg PO Q6H PRN 3 Days #12 tab 09/10/22 06/05/23 Rx Furosemide [Lasix] 40 mg PO DAILY 12/11/22 06/05/23 History Potassium Chloride [Klor-Con M20] 20 meq PO DAILY 12/11/22 06/05/23 History Apixaban [Eliquis] 5 mg PO BID 06/05/23 06/05/23 History Eszopiclone [Lunesta] 2 mg PO HS PRN 06/05/23 06/05/23 History Isosorbide Mononitrate ER [Imdur] 30 mg PO DAILY 30 Days #30 tab 06/05/23 Rx Allergies Allergy/AdvReac Type Severity Reaction Status Date / Time No Known Allergies Allergy Verified 06/05/23 12:00 Physical Exam Vitals: Vital Signs Temp Pulse Pulse Resp BP BP Pulse Ox 06/05/23 14:56 97.5 F L 70 16 120/74 99 06/05/23 12:16 98.7 F 86 15 131/83 100 06/05/23 11:30 70 16 112/68 100 06/05/23 10:30 69 16 98/64 100 06/05/23 09:45 79 16 122/74 100 06/05/23 09:24 99 F 80 20 150/86 100 Intake and Output 06/05/23 06/05/23 06/05/23 06:59 14:59 22:59 Other: # Voids 2 # Bowel Movements 0 Weight 81.647 kg Results 06/05/23 09:44 06/05/23 09:44 Cardiac Enzymes 06/05/23 06/05/23 06/05/23 Range/Units 09:44 09:44 12:49 AST 25 (17-59) U/L Troponin I 0.016 0.016 (0.000-0.034) ng/mL Coagulation 06/05/23 Range/Units 09:44 PT 12.2 (10.0-12.5) sec APTT 27.4 (22.0-30.0) sec CBC 06/05/23 Range/Units 09:44 WBC 8.7 (3.8-10.6) k/uL RBC 4.52 (4.30-5.90) m/uL Hgb 12.2 L (13.0-17.5) gm/dL Hct 38.2 L (39.0-53.0) % Plt Count 200 (150-450) k/uL Comprehensive Metabolic Panel 06/05/23 Range/Units 09:44 Sodium 138 (137-145) mmol/L Potassium 4.6 (3.5-5.1) mmol/L Chloride 104 (98-107) mmol/L Carbon Dioxide 22 (22-30) mmol/L BUN 22 H (9-20) mg/dL Creatinine 1.38 H (0.66-1.25) mg/dL Glucose 174 H (74-99) mg/dL Calcium 10.4 H (8.4-10.2) mg/dL AST 25 (17-59) U/L ALT 14 (4-49) U/L Alkaline Phosphatase 71 (38-126) U/L Total Protein 8.6 H (6.3-8.2) g/dL Albumin 4.5 (3.5-5.0) g/dL Current Medications Generic Name Dose Route Start Last Admin Trade Name Freq PRN Reason Stop Dose Admin Acetaminophen 650 mg 06/05/23 12:24 Acetaminophen Tab 325 Mg Tab PO Q6HR PRN Mild Pain or Fever > 100.5 Al Hydroxide/Mg Hydroxide 15 ml 06/05/23 12:24 Mag Hydrox/Al Hydrox/Simeth 30 Ml Cup PO Q6HR PRN Indigestion Apixaban 5 mg 06/05/23 21:00 Apixaban 5 Mg Tab PO BID [facility] Protocol Atorvastatin Calcium 40 mg 06/06/23 09:00 Atorvastatin 40 Mg Tab PO DAILY [facility] Carvedilol 3.125 mg 06/05/23 17:30 Carvedilol 3.125 Mg Tab PO AC-BID [facility] Dapagliflozin 10 mg 06/06/23 09:00 Dapagliflozin Propanediol 10 Mg Tablet PO DAILY [facility] Dextrose/Water 25 ml 06/05/23 12:14 Dextrose 50% Syringe 50 Ml IVP PER PROTOCOL PRN Hypoglycemia Protocol Dextrose/Water 50 ml 06/05/23 12:14 Dextrose 50% Syringe 50 Ml IVP PER PROTOCOL PRN Hypoglycemia Protocol Furosemide 40 mg 06/06/23 09:00 Furosemide 40 Mg Tab PO DAILY [facility] Insulin Aspart 0 unit 06/05/23 12:30 06/05/23 12:53 Insulin Aspart (Novolog) 100 Unit/Ml Vial SQ Not Given ACHS [facility] Protocol Isosorbide Mononitrate 30 mg 06/05/23 12:45 06/05/23 12:56 Isosorbide Mononitrate Er 30 Mg Tab.Er.24h PO 30 mg DAILY [facility] Administration Melatonin 3 mg 06/05/23 12:24 Melatonin 3 Mg Tablet PO HS PRN Insomnia Naloxone HCl 0.2 mg 06/05/23 12:24 Naloxone 0.4 Mg/Ml 1 Ml Vial IV Q2M PRN Opioid Reversal Nitroglycerin 0.4 mg 06/05/23 11:10 Nitroglycerin Sl Tabs 0.4 Mg Tab SUBLINGUAL Q5M PRN Chest Pain Ondansetron HCl 4 mg 06/05/23 12:24 Ondansetron 4 Mg/2 Ml Vial IVP Q8HR PRN Nausea And Vomiting Potassium Chloride 20 meq 06/06/23 09:00 Potassium Chloride Er 20 Meq Tab.Er PO DAILY [facility] Temazepam 15 mg 06/05/23 12:24 Temazepam 15 Mg Cap PO HS PRN Insomnia Tramadol HCl 50 mg 06/05/23 12:23 Tramadol 50 Mg Tab PO Q6H PRN Pain Intake and Output 06/05/23 06/05/23 06/05/23 06:59 14:59 22:59 Other: # Voids 2 # Bowel Movements 0 Weight 81.647 kg Patient Weight 06/06/23 06:59 Weight 81.647 kg 06/05/23 09:44 06/05/23 09:44
[2023-06-05] MEDS ORDERED: carvediloL 3.125 MG TAB PO SCH (17:30)
[2023-06-05] MEDS ORDERED: APIXABAN 5 MG TAB PO SCH (21:00)
[2023-06-06] MEDS ORDERED: FUROSEMIDE 40 MG TAB PO SCH (09:00)
[2023-06-06] MEDS ORDERED: POTASSIUM CHLORIDE ER 20 MEQ TAB.ER PO SCH (09:00)
[2023-06-06] MEDS ORDERED: ASPIRIN 325 MG TAB PO SCH (09:00)
[2023-06-06] MEDS ORDERED: ATORVASTATIN 40 MG TAB PO SCH (09:00)
[2023-06-06] MEDS ORDERED: DAPAGLIFLOZIN PROPANEDIOL 10 MG TABLET PO SCH (09:00)
--- NOTE | 2023-06-07 12:52 | P.DS ---
Providers Date of admission: 06/05/23 11:10 Expected date of discharge: 06/07/23 Attending physician: Sav Mahan MD Consults: 06/05/23 11:10 Consult Physician Urgent Consulting Provider: Bashir Carvalho Consult Reason/Comments: cp Do you want consulting provider notified?: Yes Primary care physician: Reji Alston Hospital Course: Discharge diagnoses; Chest pain, acute coronary syndrome ruled out Coronary artery disease with previous CABG x 5 vessels, 2012 Persistent atrial fibrillation Ischemic cardiomyopathy, EF 20-25% in 2019 Hypertension Hyperlipidemia History of permanent pacemaker insertion Chronic congestive heart failure with reduced EF, currently euvolemic Skin lesion on right side of back Hospital course; patient is a 72-year-old gentleman past medically significant for coronary artery disease s/p CABG, atrial fibrillation, hypertension, hyperlipidemia who presented to the ER because of chest pain that started this morning. Patient stated that he woke up this morning and noticed that he had chest pain that was central in location, described it as an ache, nonradiating, aggravated by exertion, associated with shortness of breath. There is no relieving factor associated with chest pain. There is no complaint of nausea, vomiting abdominal pain. Patient denies any palpitation. There was no complaint of orthopnea or PND. Initial lab work done in the ER showed WBC 8.7, hemoglobin 9.2, platelet count 200, sodium 130, potassium 4.6, BUN 22, creatinine 1.38, glucose 174, calcium 10.4, total bilirubin 1.4 EKG done in the ER showed heart rate of 90, ventricular pacemaker, no ST segment elevation or depression seen, no T-wave inversions seen. Chest x-ray done in the ER mild cardiomegaly, no acute cardiopulmonary process Patient admitted to internal medicine service 06/05. Patient seen and examined. Cardiology evaluated patient, started patient on Imdur, recommended continuation of current medications. Cardiology cleared the patient for discharge PHYSICAL EXAMINATION: GENERAL: The patient is alert and oriented x3, not in any acute distress. Well developed, well nourished. HEENT: Pupils are round and equally reacting to light. EOMI. No scleral icterus. No conjunctival pallor. Normocephalic, atraumatic. No pharyngeal erythema. No thyromegaly. CARDIOVASCULAR: S1 and S2 present. No murmurs, rubs, or gallops. PULMONARY: Chest is clear to auscultation, no wheezing or crackles. ABDOMEN: Soft, nontender, nondistended, normoactive bowel sounds. No palpable organomegaly. MUSCULOSKELETAL: No joint swelling or deformity. EXTREMITIES: No cyanosis, clubbing, or pedal edema. NEUROLOGICAL: Gross neurological examination did not reveal any focal deficits. SKIN: No rashes. Dictation was produced using [employer] dictation software. please excuse any grammatical, word or spelling errors. Patient Condition at Discharge: Good Plan - Discharge Summary Discharge Rx Participant: No New Discharge Prescriptions: New Isosorbide Mononitrate ER [Imdur] 30 mg PO DAILY 30 Days #30 tab Continue traMADol HCL 50 mg PO Q6H PRN 3 Days #12 tab PRN Reason: Pain Furosemide [Lasix] 40 mg PO DAILY Potassium Chloride [Klor-Con M20] 20 meq PO DAILY Eszopiclone [Lunesta] 2 mg PO HS PRN PRN Reason: sleep Rosuvastatin [Crestor] 20 mg PO DAILY carvediloL [Coreg] 3.125 mg PO BID Dapagliflozin Propanediol [Farxiga] 10 mg PO DAILY Apixaban [Eliquis] 5 mg PO BID Discharge Medication List Rosuvastatin [Crestor] 20 mg PO DAILY 10/06/21 [History] Dapagliflozin Propanediol [Farxiga] 10 mg PO DAILY 09/06/22 [History] carvediloL [Coreg] 3.125 mg PO BID 09/06/22 [History] traMADol HCL 50 mg PO Q6H PRN 3 Days #12 tab 09/10/22 [Rx] Furosemide [Lasix] 40 mg PO DAILY 12/11/22 [History] Potassium Chloride [Klor-Con M20] 20 meq PO DAILY 12/11/22 [History] Apixaban [Eliquis] 5 mg PO BID 06/05/23 [History] Eszopiclone [Lunesta] 2 mg PO HS PRN 06/05/23 [History] Isosorbide Mononitrate ER [Imdur] 30 mg PO DAILY 30 Days #30 tab 06/05/23 [Rx] Follow up Appointment(s)/Referral(s): Reji Alston MD [Primary Care Provider] - 1-2 days Patient Instructions/Handouts: Chest Pain (DC) Activity/Diet/Wound Care/Special Instructions: 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
== END 2023-06-05 16:45 | disposition home or self-care (01) ==
LOC: EC 09:14 → 6NMEDSUR 11:10
PROVIDERS: ADMIT Internal Medicine; ATTEND Internal Medicine
DX: I25.119 Atherosclerotic heart disease of native coronary artery with unspecified angina pectoris (principal); I11.0 Hypertensive heart disease with heart failure; I50.22 Chronic systolic (congestive) heart failure; I48.19 Other persistent atrial fibrillation; I25.5 Ischemic cardiomyopathy; E78.5 Hyperlipidemia, unspecified; E11.9 Type 2 diabetes mellitus without complications; L98.9 Disorder of the skin and subcutaneous tissue, unspecified; F03.90 Unspecified dementia, unspecified severity, without behavioral disturbance, psychotic disturbance, mood disturbance, and anxiety; I25.2 Old myocardial infarction; Z79.84 Long term (current) use of oral hypoglycemic drugs; Z79.01 Long term (current) use of anticoagulants; Z79.899 Other long term (current) drug therapy; Z95.1 Presence of aortocoronary bypass graft; Z95.810 Presence of automatic (implantable) cardiac defibrillator; Z98.61 Coronary angioplasty status
CPT/HCPCS: 99285; 36415; 93005; 83880; 80053; 83735; 84484; 85025; 85610; 85730; 83036; 71046; G0378